=== PATIENT | male | born 1965 | race Caucasian/White ===

== ENCOUNTER 2016-08-10 16:37 | Emergency (ER) | payer OTHER ==
[~2016-08-10] VITALS: Ht 175.3 cm; Wt 91.0 kg
[~2016-08-10 16:37] MED LIST: ASPI-535 PO; ATOR40TA68 PO; CLOP75TA27 PO; GEMF600T60 PO; LANT3I SC; OMEP20CA16 PO
[2016-08-10 16:49] VITALS: Ht 175.3 cm; Wt 91.0 kg
[2016-08-10] MEDS ORDERED: SOD CHLORIDE 0.9% 1,000 ML IV STA (17:06)
[2016-08-10 17:25] LABS: ADD SCAN DIFF NO
[2016-08-10 17:28] LABS: BASOPHILS % 0.3 % (0.0-2.0); EOSINOPHILS # 0.1 10^3/ul (0.0-0.5); EOSINOPHILS % 0.8 % (0.0-7.0); HEMATOCRIT 44.4 % (42.0-52.0); HEMOGLOBIN 15.4 g/dl (14.0-18.0); LYMPHOCYTES # 3.3 10^3/ul (0.8-2.9); LYMPHOCYTES % 28.1 % (15.0-51.0); MEAN CORPUSCULAR HEMOGLOBIN 30.8 pg (29.0-33.0); MEAN CORPUSCULAR HGB CONC 34.7 g/dl (32.0-37.0); MEAN CORPUSCULAR VOLUME 88.8 fl (82.0-101.0); MEAN PLATELET VOLUME 9.3 fl (7.4-10.4); MONOCYTE # 0.7 10^3/ul (0.3-0.9); NEUTROPHIL # 7.6 10^3/ul (1.6-7.5); NEUTROPHILS % 64.5 % (39.0-77.0); PLATELET COUNT 344 10^3/UL (140-415); RED CELL DISTRIBUTION WIDTH 11.8 % (11.5-14.5); WHITE BLOOD COUNT 11.8 10^3/ul (4.8-10.8)
[2016-08-10] MEDS ORDERED: EVOL140S SQ (17:44)
[2016-08-10] MEDS ORDERED: METF1000 PO (17:45)
[2016-08-10] MEDS ORDERED: INSU100I12 SQ (17:45)
[2016-08-10 17:46] LABS: CHLORIDE 101 mmol/L (97-110); POTASSIUM 4.3 mmol/L (3.5-5.1); SODIUM 139 mmol/L (135-144)
[2016-08-10] MEDS ORDERED: LISI2.5T59 PO (17:46)
[2016-08-10] MEDS ORDERED: OMEP20CA16 PO (17:46)
[2016-08-10] MEDS ORDERED: RANI150T5 PO (17:47)
[2016-08-10] MEDS ORDERED: MELO-110 PO (17:47)
[2016-08-10 17:48] LABS: INR 0.91; PROTIME 12.2 Sec (12.2-14.2)
[2016-08-10] MEDS ORDERED: GABA300C16 PO (17:48)
[2016-08-10 17:49] LABS: ANION GAP 18 (8-16); CARBON DIOXIDE 24 mmol/L (21-31); CREATININE 0.77 mg/dl (0.61-1.24); PARTIAL THROMBOPLASTIN TIME 27.2 Sec (25.0-35.0)
[2016-08-10 17:49] LABS: ADD UMIC NO; URINE BILIRUBIN (Dip) NEGATIVE (NEGATIVE); URINE BLOOD (Dip) NEGATIVE (NEGATIVE); URINE COLOR LT. YELLOW (YELLOW); URINE GLUCOSE (Dip) NEGATIVE (NEGATIVE); URINE KETONES (Dip) NEGATIVE (NEGATIVE); URINE LEUKOCYTE ESTERASE (Dip) NEGATIVE (NEGATIVE); URINE NITRITE (Dip) NEGATIVE (NEGATIVE); URINE TOTAL PROTEIN (Dip) NEGATIVE (NEGATIVE); URINE UROBILINOGEN (Dip) 0.2 E.U./dL (0.1-1.0)
[2016-08-10] MEDS ORDERED: ICOS1CAP PO (17:49)
[2016-08-10] MEDS ORDERED: EZET10TA3 PO (17:49)
[2016-08-10 17:50] LABS: BLOOD UREA NITROGEN 13 mg/dl (7-20); CALCIUM 9.5 mg/dl (8.4-10.2); GLUCOSE 107 mg/dl (70-220)
[2016-08-10] MEDS ORDERED: DULA1.5P SQ (17:52)
--- NOTE | 2016-08-10 17:57 | RADRPT ---
PROCEDURE: Chest x-ray CLINICAL INDICATION: Chest pain TECHNIQUE: Chest single view COMPARISON: 02/04/2014 FINDINGS: The heart is normal in size. The pulmonary vessels are normal in caliber. The lungs are clear. Th e costophrenic angles are sharp. The visualized bony thorax is unremarkable. IMPRESSION: No acute cardiopulmonary disease. RPTAT: HH .Juan Pedraza MD, Date Time Electronically viewed and signed by .Juan Pedraza MD, MD on 08/10/2016 17:56 .W/
--- NOTE | 2016-08-10 18:09 | RADRPT ---
PROCEDURE: CT Brain without contrast. CLINICAL INDICATION: Trauma. Pain. . TECHNIQUE: Serial axial computed tomographic images of the brain was performed on a CT scanner fro m the skull base through the vertex without contrast. Exam CTDlvol = 45 mGy and DLP = 720 mGy-cm. One of the following 3 dose reduction techniques were used: Automated exposure control; adjustment of the mA and/or kV according to patient size; or use of iterative reconstruction technique. COMPARISON: 06/19/2012. FINDINGS: There is no fracture. There is mild generalized central and peripheral volume loss. There is no midl ine shift. There are no focal parenchymal abnormalities. There is no acute stroke. No acute intra cranial hemorrhage or abnormal extra-axial fluid collection. Visualized paranasal sinuses are maria elena r. IMPRESSION: 1. No acute post-traumatic abnormality. RPTAT: HMVK .Bill Crabtree MD, Date Time Electronically viewed and signed by .Bill Crabtree MD, on 08/10/2016 18:09 .K/
[2016-08-10 18:10] LABS: TROPONIN-I < 0.012 ng/ml (0.00-0.12)
--- NOTE | 2016-08-10 18:14 | RADRPT ---
PROCEDURE: CT cervical spine without contrast CLINICAL INDICATION: Trauma. Pain. TECHNIQUE: CT scan of the cervical spine was performed on a multidetector scanner. No IV contrast was administered. Coronal and sagittal reformatted images were obtained from the axial source imag es. Images were reviewed on a high-resolution PACS workstation. Exam CTDlvol = 22 mGy and DLP = 416 mGy-cm. One of the following 3 dose reduction techniques were used: Automated exposure control; adjustment of the mA and/or kV according to patient size; or use of iterative reconstruction techniq ue. COMPARISON: None available FINDINGS: There is no fracture. Alignment is maintained. There is no spondylolisthesis. There is maintenanc e of height of the vertebral bodies. Mild multilevel degenerative changes are present, greatest at C3-4 through C5-6. Bone mineralization is within normal limits. Prevertebral soft tissues are unr emarkable. IMPRESSION: 1. No acute post traumatic abnormality. 2. Mild degenerative changes greatest between C3-4 and C5-6. RPTAT: MVK .Bill Crabtree MD, MD Date Time Electronically viewed and signed by .Bill Crabtree MD, MD on 08/10/2016 18:14 .K/
--- NOTE | 2016-08-10 18:57 | ERA ---
ER Documentation Chief Complaint Date/Time DATE: 08/10/16 TIME: 18:52 Chief Complaint fell on head with ko 1 hour ago; nausea HPI This is a 51-year-old male who presents to the emergency room after a syncopal episode. According to the patient and the patient's family who are giving the history this patient was standing up and suddenly lost consciousness. He was unconscious for approximately 30 seconds, and did fall on his head. The patient states that he does have a slight headache, is complaining of mild nausea and pain to the right hand. The patient states that he sometimes faints when his blood pressure is too low. He denies any active chest pain or palpitations at this time. According to the patient's previous medical records this patient does have heart disease and has suffered from a previous myocardial infarction in 2009 ROS All systems reviewed and are negative except as per history of present illness. Medications Home Meds Reported Medications Dulaglutide (Trulicity) 1.5 Mg/0.5 Ml Pen.injctr, 1.5 MG SQ Q Sunday08/10/16 Ezetimibe* (Zetia*) 10 Mg Tablet, 10 MG PO DAILY, TAB 08/10/16 Icosapent Ethyl (VASCEPA) 1 Gm Capsule, 2 GM PO BID, CAP 08/10/16 Gabapentin* (Gabapentin*) 300 Mg Capsule, 300 MG PO DAILY, #30 CAP 08/10/16 Ranitidine Hcl* (Ranitidine Hcl*) 150 Mg Tablet, 150 MG PO HS, #30 TAB 08/10/16 Meloxicam* (Mobic*) 15 Mg Tablet, 15 MG PO DAILY, #30 TAB 08/10/16 Lisinopril* (Lisinopril*) 2.5 Mg Tablet, 2.5 MG PO DAILY Y for PRN, #30 TAB 08/10/16 Omeprazole* (Omeprazole*) 20 Mg Capsule.dr, 20 MG PO DAILY, #30 CAP 08/10/16 Metformin Hcl* (Metformin Hcl*) 1,000 Mg Tablet, 1000 MG PO WITH BREAKFAST DINNE , #60 TAB 08/10/16 Insulin Lispro (Humalog Kwikpen U-100) 100 Unit/1 Ml Insuln.pen, 3 UNIT SQ WITH MEALS 08/10/16 Evolocumab (Repatha Syringe) 140 Mg/1 Ml Syringe, 140 MG SQ [id number] 08/10/16 Insulin Glargine* (Lantus*) 100 Unit/Ml Soln, 45 UNIT SC QAM, EA 02/04/14 Aspirin Ec (Aspir 81) 81 Mg Tablet.dr, 81 MG PO DAILY, TAB 02/04/14 Discontinued Reported Medications Gemfibrozil* (Gemfibrozil*) 600 Mg Tablet, 600 MG PO DAILY, TAB 02/04/14 Atorvastatin* (Atorvastatin*) 40 Mg Tablet, 40 MG PO HS, TAB 02/04/14 Omeprazole* (Omeprazole*) 20 Mg Capsule.dr, 20 MG PO DAILY, CAP 02/04/14 Clopidogrel Bisulfate (Clopidogrel) 75 Mg Tablet, 75 MG PO DAILY, TAB 02/04/14 Allergies Allergies: Coded Allergies: No Known Allergies (Verified Allergy, Mild, 08/10/16) PMhx/Soc History of Surgery: Yes (R Shoulder, Cardiac Cath) Anesthesia Reaction: No Hx Neurological Disorder: No Hx Respiratory Disorders: No Hx Cardiac Disorders: Yes (CT with Stent Placement) Hx Psychiatric Problems: No Hx Miscellaneous Medical Probl: Yes (DM II) Hx Alcohol Use: Yes (Social) Hx Substance Use: No Hx Tobacco Use: Yes (2 Packs a Day) Smoking Status: Current every day smoker Physical Exam Vitals Vital Signs Date Time Temp Pulse Resp B/P Pulse Ox O2 Delivery O2 Flow Rate FiO2 08/10/16 17:26 93 17 142/94 96 Room Air 08/10/16 16:49 99.3 99 18 145/89 98 Physical Exam INITIAL VITAL SIGNS: Reviewed by me GENERAL: The patient is well developed and appropriate for usual state of health in no apparent distress HEENT: Pupils equal, round, and reactive to light. EOMI. There is no scleral icterus. NECK: C-spine is soft and supple, there is no meningismus. There is no cervical lymphadenopathy. LUNGS: Clear to auscultation bilaterally. There are no rales, wheezes or rhonchi. HEART: Regular rate and rhythm, no murmurs, clicks, rubs or gallops. ABDOMEN: Soft, non-tender, non-distended. There are bowel sounds in all four quadrants. No rebound or guarding. EXTREMITIES: Superficial abrasion or lacerations to the second and third digits on the right hand, there is no peripheral cyanosis or edema. No focal swelling or erythema. NEUROLOGICAL: The patient moves all four extremities with 5/5 strength. Cranial nerves II - XII are intact. Normal gait. Alert and oriented SKIN: There is no apparent rash or petechiae. HEME/LYMPHATIC: There is no evidence of excessive bruising or lymphedema. PSYCHIATRIC: The patient does not appear anxious or depressed. Result Diagram: 08/10/16 1709 08/10/16 1709 Results 24 hrs Laboratory Tests Test 08/10/16 17:02 08/10/16 17:09 08/10/16 17:35 Bedside Glucose 109mg/dL White Blood Count 11.810^3/ul Red Blood Count 5.0010^6/ul Hemoglobin 15.4g/dl Hematocrit 44.4% Mean Corpuscular Volume 88.8fl Mean Corpuscular Hemoglobin 30.8pg Mean Corpuscular Hemoglobin Concent 34.7g/dl Red Cell Distribution Width 11.8% Platelet Count 30177^3/UL Mean Platelet Volume 9.3fl Neutrophils % 64.5% Lymphocytes % 28.1% Monocytes % 6.0% Eosinophils % 0.8% Basophils % 0.3% Nucleated Red Blood Cells % 0.0/100WBC Neutrophils # 7.610^3/ul Lymphocytes # 3.310^3/ul Monocytes # 0.710^3/ul Eosinophils # 0.110^3/ul Basophils # 0.010^3/ul Nucleated Red Blood Cells # 0.010^3/ul Prothrombin Time 12.2Sec Prothrombin Time Ratio 1.0 INR International Normalized Ratio 0.91 Activated Partial Thromboplast Time 27.2Sec Sodium Level 139mmol/L Potassium Level 4.3mmol/L Chloride Level 101mmol/L Carbon Dioxide Level 24mmol/L Anion Gap 18 Blood Urea Nitrogen 13mg/dl Creatinine 0.77mg/dl Glucose Level 107mg/dl Calcium Level 9.5mg/dl Troponin I < 0.012ng/ml Urine Color LT. YELLOW Urine Clarity CLEAR Urine pH 7.0 Urine Specific [place] 1.010 Urine Ketones NEGATIVE Urine Nitrite NEGATIVE Urine Bilirubin NEGATIVE Urine Urobilinogen 0.2 E.U./dL Urine Leukocyte Esterase NEGATIVE Urine Hemoglobin NEGATIVE Urine Glucose NEGATIVE% Urine Total Protein NEGATIVE Current Medications Medications (Trade) Dose Ordered Sig/Stephan Route PRN Reason Start Time Stop Time Status Last Admin Dose Admin Sodium Chloride (NS) 1,000 ml @ 1,000 mls/hr Q1H STAT IV 08/10/16 17:06 08/10/16 18:05 DC 08/10/16 17:18 Procedures/MDM EKG: #1 Rate/Rhythm: [Normal Sinus Rhythm] QRS, ST, T-waves: [No changes consistent w/ acute ischemia] Impression: [No evidence of ischemia or arrhythmia] EKG: #2 Rate/Rhythm: [Normal Sinus Rhythm] QRS, ST, T-waves: [No changes consistent w/ acute ischemia] Impression: [No evidence of ischemia or arrhythmia] CT brain/CT cervical spine without contrast: No acute abnormality X-ray Hand 3V interpreted by me: Scaphoid: [Normal] Bones: [No fracture] Joints: [No dislocation] Foreign body: [None] This 51-year-old male presents to the emergency room for evaluation of syncopal episode. When I evaluated the patient he was alert and oriented to person place and time, no lacerations were noted on his head. Did note some bruising and superficial laceration and abrasion on his right hand to the second and third digits. X-rays were obtained of the hand which did not show any acute fractures. CT of the head and cervical spine did not show any fractures or bleeds. Chest x-ray is also clear. This patient does have a cardiac history with previous ST elevation CT approximately 7 years ago. Given his cardiac history and syncopal episode I did recommend this patient be placed in for admission. The patient is adamantly refusing and states that he can see his primary care physician next week. I advised him that I am unable to rule out any cardiac etiology as a cause of his syncope and he will need to be admitted for cardiology evaluation and possible echocardiogram. The patient again is adamantly refusing. The patient has capacity to make medical decisions at this time and advised him he will need to leave AGAINST MEDICAL ADVICE. I did advise patient that he can return at anytime if he were to change his mind or if he would have any chest pain or syncope and he verbalized understanding. Against Medical Advice Note The patient verbalized understanding of risks of signing out against medical advice including and disability. The patient explained to me the reason for wanting to sign out against medical advice, he does not like hospitals and wants to follow with his primary care. The patient is alert and oriented x 3 with decisional capacity and competence to sign out. They were welcomed to come back to ER and will be going home with discharge paperwork. Departure Diagnosis: Primary Impression: Syncope Additional Impression: Abrasion of right hand Condition: CAL Gerardo DO August 10, 2016 18:57
[2016-08-10 19:33] VITALS: BP 138/89; PULSE 74; RESP 17; TEMP 98.7
--- NOTE | 2016-08-10 20:12 | RADRPT ---
PROCEDURE: XR Hand. CLINICAL INDICATION: Pain TECHNIQUE: AP, oblique and lateral views of the right hand were obtained. COMPARISON: No prior studies are available for comparison. FINDINGS: Three views of the right hand demonstrate no displaced fracture. No gross malalignment is seen. The re is minimal degenerative 58 feet PIP joints. No bony erosions are seen.. Bones are normally mine ralized. The soft tissues are unremarkable. IMPRESSION: No acute fracture dislocation. RPTAT: HH .Juan Pedraza MD, Date Time Electronically viewed and signed by .Juan Pedraza MD, on 08/10/2016 20:12 .W/
== END 2016-08-10 19:34 | disposition left against medical advice (07) ==
LOC: E/R 16:37
DX: R55 Syncope and collapse (principal); S60.511A Abrasion of right hand, initial encounter; E11.9 Type 2 diabetes mellitus without complications; F17.210 Nicotine dependence, cigarettes, uncomplicated; W18.39XA Other fall on same level, initial encounter; Y92.9 Unspecified place or not applicable; Z79.4 Long term (current) use of insulin; Z98.61 Coronary angioplasty status; Z79.84 Long term (current) use of oral hypoglycemic drugs; Z79.82 Long term (current) use of aspirin
CPT/HCPCS: 36415; 70450; 71010; 72125; 73130; 80048; 81003; 82962; 84484; 85025; 85610; 85730; 93005; J7030; Z7502

== ENCOUNTER 2017-09-14 14:02 | Emergency (ER) | END 2017-09-14 16:39 | disposition home or self-care (01) ==

== ENCOUNTER 2017-10-09 10:23 | Day surgery (SDC) | END 2017-10-09 16:46 | disposition home or self-care (01) ==

== ENCOUNTER 2018-01-14 08:43 | Inpatient (IN) | END 2018-01-17 18:55 | disposition home or self-care (01) | DRG 392 ==

== ENCOUNTER 2018-07-10 06:24 | Inpatient (IN) | payer OTHER ==
[2018-07-10] VITALS (32 sets, daily range): BP systolic 102–149; BP diastolic 62–85; PULSE 64–83; RESP 13–24; Ht 172.7 cm; Wt 98.2 kg
[~2018-07-10] VITALS: Ht 172.7 cm; Wt 98.2 kg
[~2018-07-10 06:24] MED LIST changes: -ASPI-535 PO; +ASPI81TA50 PO; -ATOR40TA68 PO; -CLOP75TA27 PO; +ERGO500013 PO; +GABA300C16 PO; -GEMF600T60 PO; +GEMF600T8 PO; +ICOS1CAP PO; +INSU100I12 SQ; +LISI2.5T59 PO; +METF100010 PO; +TAMS0.4C2 PO
[2018-07-10] MEDS ORDERED: MIDAZOLAM 1 MG/ML 2 ML INJ ONE (07:14)
[2018-07-10] MEDS ORDERED: HEPARIN 1000 UNITS/ML 10 ML INJ ONE (07:14)
[2018-07-10] MEDS ORDERED: LIDOCAINE 1% (MDV) 20 ML INJ ONE (07:14)
[2018-07-10] MEDS ORDERED: IODIXANOL LOCM 100 ML BTL ONE (07:14)
[2018-07-10] MEDS ORDERED: NITROGLYCERIN (IC) 100 MCG/ML INJ ONE (07:16)
[2018-07-10] MEDS ORDERED: VERAPAMIL 5 MG INJ ONE (07:16)
[2018-07-10] MEDS ORDERED: FENTAnyl 50 MCG/ML VIAL ONE (07:16)
[2018-07-10] MEDS ORDERED: SOD CHLORIDE 0.9% 1,000 ML IV SCH (09:06)
--- NOTE | 2018-07-10 09:11 | OPR ---
Date/Time of Note Date/Time of Note DATE: 07/10/18 TIME: 09:07 Operative Report Procedure Date: Jul 10, 2018 Preoperative Diagnosis Unstable angina Abnormal stress test Postoperative Diagnosis Severe triple-vessel coronary artery disease Operation/Procedure Performed Left heart catheterization Right and left coronary angiogram Interpretation and supervision of right and left coronary angiogram LV pressure measurements Conscious sedation Left radial artery approach Surgeon see signature line Assembler Piano Watch Train Inspector staff Anesthesia Type: MAC Estimated Blood Loss: minimal Transfusion none Specimen None Grafts/Implants none Complications none Pt Condition Post Procedure: stable Procedure Description Findings Hemodynamics LV pressure 120/-6 with an EDP of 8 Aortic pressure 116/59 Coronary findings Left main is a large caliber vessel with ostial 50-60% stenosis and mid 40% stenosis. Circumflex is a medium caliber vessel with a mid 90% stenosis prior to a trifurcation of 3 obtuse marginals. The second obtuse marginal with an aneurysmal segment with a mid 80% stenosis LAD is a medium caliber vessel with a proximal 60% stenosis in the mid 70% stenosis. There is a medium caliber diagonal with an ostial 99% stenosis RCA is a large caliber vessel and dominant with a mid 99% stenosis, PLB with proximal 99% stenosis, PDA with a proximal 60% stenosis Description of procedure Patient brought to the Watch Train Inspector after informed consent. Patient prepped and draped as per protocol. Left radial artery access was obtained. A 5/6 [place] Helenian sheath was placed. A JL 3.55 [place] Helen[place] diagnostic catheter was used to engage the left main and Clemencia Steve was performed. We next used a 5 [place] Helen[place] JR4 catheter to engage the RCA and Clemencia Steve was performed. We next and to the left ventricle and pressure measurements were obtained as well as pullback. There was no immediate complications Recommendations Patient with severe triple-vessel coronary artery disease including left main disease, will need CABG Bill Wray DO Jul 10, 2018 09:11
[2018-07-10] MEDS: ASPIRIN 81 MG TAB PO SCH (09:34)
[2018-07-10] MEDS ORDERED: ACETAMINOPHEN 325 MG TAB PO PRN (13:00)
[2018-07-10] MEDS ORDERED: NACL 0.9% 3 ML SYG IV SCH (13:00)
[2018-07-10] MEDS ORDERED: ONDANSETRON 4 MG INJ IV PRN (13:00)
--- NOTE | 2018-07-10 13:04 | RADRPT ---
Echocardiogram Report Patient Name: RADHA IRVINGTPhimanshuent ID: [id number] : 1965 (53y 4m)Study Date: 07/10/2018 10:31:53 AM Gender: MAccession #: [id number] Tech: Jean Paul Zheng RDCS Location: PACU Ref.Physician: BILL WRAY Height(Cm): BSA: Weight(Kg): Quality: AdequateAccount #: Procedures: Echocardiographic Report: Transthoracic echocardiogram with complete 2D, M-Mode, and doppler examination. Indications: Coronary Artery Disease. Measurements: 2D/M Mode Doppler Measurement Value Normal Range Measurement Value Normal Range LVIDd 2D 4.6 [ 4.2 - 5.8 ] cm AV Peak Shar 1.5 [ 100.0 - 170.0 ] cm/sec LVIDs 2D 3.1 [ 2.5 - 4.0 ] cm AV Peak PG 9.0 [ 2.0 - 9.0 ] mmHg LVPWd 2D 1.1 [ 0.6 - 1.0 ] cm LVOT Peak Shar 0.8 [ 70.0 - 110.0 ] cm/sec IVSd 2D 1.3 [ 0.6 - 1.0 ] cm LVOT Peak PG 3.0 [ 2.0 - 6.0 ] mmHg IVS/LVPW 2D 1.1 ratio MV E Peak Shar 0.9 [ 60.0 - 130.0 ] cm/sec AoR Diam 2D 3.1 [ 2.6 - 3.4 ] cm MV A Peak Shar 0.7 [ 100.0 - 120.0 ] cm/sec LA/Ao 2D 1 ratio MV E/A 1.4 [ 0.8 - 1.5 ] ratio LA Dimen 2D 3.0 [ 3.0 - 4.0 ] cm MV Decel Time 197 [ 104 - 258 ] msec Lat E` Shar 0.1 [ 10.0 - 15.0 ] cm/sec MV E/A 1.4 [ 0.8 - 1.5 ] ratio TR Peak Shar 1.9 [ 100.0 - 280.0 ] cm/sec TR Peak PG 15.0 mmHg RVSP 18.0 [ 10.0 - 36.0 ] mmHg RA Pressure 3.0 mmHg Findings: Left Ventricle: Normal left ventricular systolic function. Normal left ventricular cavity size. Mild concentric left ventricular hypertrophy. Ejection fraction is visually estimated at 55 %. Right Ventricle: Normal right ventricular size. Normal right ventricular systolic function. Left Atrium: The left atrium is normal in size. Right Atrium: The right atrium is normal in size. Mitral Valve: Normal appearance and function of the mitral valve with trace physiologic regurgitation. Aortic Valve: Normal appearance of the aortic valve. No significant aortic stenosis or insufficiency. Tricuspid Valve: Normal appearance and function of the tricuspid valve with trace physiologic regurgitation. Pulmonic Valve: Normal pulmonic valve appearance. Pericardium: Normal pericardium with no significant pericardial effusion. Aorta: Normal aortic root. IVC: Normal size and normal respiratory collapse consistent with normal right atrial pressure. Conclusions: Normal left ventricular systolic function. Normal left ventricular cavity size. Mild concentric left ventricular hypertrophy. Ejection fraction is visually estimated at 55 %. Normal right ventricular size. Normal right ventricular systolic function. The left atrium is normal in size. The right atrium is normal in size. No significant valvular stenosis or regurgitation seen. Normal pericardium with no significant pericardial effusion. Electronically Signed By: Bill Wray 2018-07-10 13:04:03 PDT
--- NOTE | 2018-07-10 13:08 | CONS ---
Assessment/Plan Assessment/Plan Hospital Course (Demo Recall) Unstable angina Severe coronary artery disease Preserved ejection fraction Hypertension Dyslipidemia -Patient status post left heart catheterization today with evidence of severe coronary artery disease in multiple vessels including left main. Patient will need coronary artery bypass grafting. This was discussed with the patient and awaiting CT surgery evaluation -Echocardiogram with preserved ejection fraction, will check carotid Doppler -Continue aspirin therapy, statin therapy, beta-blockers heart rate and blood pressure permits Consultation Date/Type/Reason Admit Date/Time Jul 10, 2018 at 09:24 Type of Consult Cardiology Reason for Consultation Severe coronary artery disease Date/Time of Note DATE: 07/10/18 TIME: 13:05 Hx of Present Illness This is a 53-year-old male past medical history of CAD, hypertension who presents today for outpatient left heart catheterization. Patient does complain of symptoms of exertional chest pain or shortness of breath which has been worsening over the past few weeks. Denies symptoms at rest. Patient underwent left heart catheterization with severe coronary disease with recommendations for coronary artery bypass grafting. Denies any current shortness of breath, fevers or chills. 12 point review of systems was performed with all pertinent positives and negatives mentioned above and all else is negative Past Medical History Medical History: coronary artery disease, high cholesterol, hypertension Home Meds Reported Medications Tamsulosin Hcl* (Tamsulosin Hcl*) 0.4 Mg Cap.er.24h, 0.4 MG PO HS, CAP 10/09/17 Gemfibrozil* (Gemfibrozil*) 600 Mg Tablet, 600 MG PO BID, TAB 10/09/17 Aspirin (Aspir-Low) 81 Mg Tablet.dr, 81 MG PO DAILY 09/14/17 Icosapent Ethyl (VASCEPA) 1 Gm Capsule, 2 GM PO BID, CAP 09/14/17 Insulin Glargine* (Lantus*) 100 Unit/Ml Soln, 45 UNIT SC DAILY, #1 VIAL 09/14/17 Metformin Hcl* (Metformin Hcl*) 1,000 Mg Tablet, 1000 MG PO WITH BREAKFAST DINNE, #60 TAB 09/14/17 Omeprazole* (Omeprazole*) 20 Mg Capsule.dr, 20 MG PO DAILY, #30 CAP 09/14/17 Gabapentin* (Gabapentin*) 300 Mg Capsule, 300 MG PO DAILY, #60 CAP 09/14/17 Lisinopril* (Lisinopril*) 2.5 Mg Tablet, 2.5 MG PO DAILY, #30 TAB 09/14/17 Ergocalciferol (Vitamin D2) (VITAMIN D2) 50,000 Unit Capsule, 93774 UNIT PO Q7D, CAP 09/14/17 Insulin Lispro (Humalog Kwikpen U-100) 100 Unit/1 Ml Insuln.pen, 10 UNIT SQ BEFORE MEALS, EA 09/14/17 Medications Current Medications Sodium Chloride 1,000 ml @ 75 mls/hr [id number] IV Last administered on 07/10/18at 09:24; Admin Dose 75 MLS/HR; Start 07/10/18 at 09:06; Stop 07/10/18 at 14:05 Aspirin (Aspirin) 81 mg DAILY PO Last administered on 07/10/18at 09:34; Admin Dose 81 MG; Start 07/10/18 at 09:30 Metoprolol Tartrate (Lopressor) 25 mg BID PO ; Start 07/10/18 at 21:00 Atorvastatin Calcium (Lipitor) 40 mg HS PO ; Start 07/10/18 at 21:00 IV Flush (NS 3 ml) 3 ml PER PROTOCOL IV ; Start 07/10/18 at 13:00; Status UNV Ondansetron HCl (Zofran Inj) 4 mg Q6H PRN IV NAUSEA/VOMITING; Start 07/10/18 at 13:00; Status UNV Acetaminophen (Tylenol Tab) 650 mg Q6H PRN PO .PAIN 1-3 OR TEMP; Start 07/10/18 at 13:00; Status UNV Allergies: Coded Allergies: No Known Allergies (Verified Allergy, Mild, 10/09/17) Past Surgical History Past Surgical Hx: angioplasty Social History Smoking Status: Former smoker Exam/Review of Systems Vital Signs Vitals Vital Signs Date Temp Pulse Resp B/P (MAP) Pulse Ox O2 O2 Flow FiO2 Time Delivery Rate 07/10/18 72 19 123/81 97 Room Air 12:30 (95) 07/10/18 98.9 09:05 Exam Constitutional: alert, oriented (No apparent distress) Head: normocephalic Respiratory: clear to auscultation, normal air movement Cardiovascular: regular rate and rhythm (S1-S2 heard) Gastrointestinal: soft, non-tender, bowel sounds Extremities: other (No significant edema) Labs Result Diagram: 07/10/18 0652 07/10/1852 Results 24hrs Laboratory Tests Test 07/10/18 06:52 White Blood Count 11.1 H Red Blood Count 4.57 L Hemoglobin 13.7 L Hematocrit 39.7 L Mean Corpuscular Volume 86.9 Mean Corpuscular Hemoglobin 30.0 Mean Corpuscular Hemoglobin Concent 34.5 Red Cell Distribution Width 11.5 Platelet Count 320 Mean Platelet Volume 9.3 Immature Granulocytes % 0.300 Neutrophils % 46.4 Lymphocytes % 42.0 Monocytes % 9.0 Eosinophils % 1.9 Basophils % 0.4 Nucleated Red Blood Cells % 0.0 Immature Granulocytes # 0.030 Neutrophils # 5.2 Lymphocytes # 4.7 H Monocytes # 1.0 H Eosinophils # 0.2 Basophils # 0.1 Nucleated Red Blood Cells # 0.0 Prothrombin Time 11.8 L Prothrombin Time Ratio 0.9 INR International Normalized Ratio 0.86 Activated Partial Thromboplast Time 23.9 Sodium Level 139 Potassium Level 4.3 Chloride Level 102 Carbon Dioxide Level 25 Anion Gap 12 Blood Urea Nitrogen 15 Creatinine 0.68 Est Glomerular Filtrat Rate mL/min > 60 Glucose Level 156 Calcium Level 9.8 Total Bilirubin 0.3 Direct Bilirubin 0.00 Indirect Bilirubin 0.3 Aspartate Amino Transf (AST/SGOT) 18 Alanine Aminotransferase (ALT/SGPT) 15 Alkaline Phosphatase 86 Total Protein 7.7 Albumin 4.4 Globulin 3.30 H Albumin/Globulin Ratio 1.33 Medications Medications Current Medications Sodium Chloride 1,000 ml @ 75 mls/hr [id number] IV Last administered on 07/10/18at 09:24; Admin Dose 75 MLS/HR; Start 07/10/18 at 09:06; Stop 07/10/18 at 14:05 Aspirin (Aspirin) 81 mg DAILY PO Last administered on 07/10/18at 09:34; Admin Dose 81 MG; Start 07/10/18 at 09:30 Metoprolol Tartrate (Lopressor) 25 mg BID PO ; Start 07/10/18 at 21:00 Atorvastatin Calcium (Lipitor) 40 mg HS PO ; Start 07/10/18 at 21:00 IV Flush (NS 3 ml) 3 ml PER PROTOCOL IV ; Start 07/10/18 at 13:00; Status UNV Ondansetron HCl (Zofran Inj) 4 mg Q6H PRN IV NAUSEA/VOMITING; Start 07/10/18 at 13:00; Status UNV Acetaminophen (Tylenol Tab) 650 mg Q6H PRN PO .PAIN 1-3 OR TEMP; Start 07/10/18 at 13:00; Status CONNORV Bill Wray DO Jul 10, 2018 13:08
--- NOTE | 2018-07-10 13:25 | HP ---
Date/Time of Note Date/Time of Note DATE: 07/10/18 TIME: 13:08 Assessment/Plan VTE Prophylaxis Risk score (from Ns)>0 risk: 3 SCD applied (from Ns): Yes Pharmacological prophylaxis: NA/contraindicated Pharm contraindication: low risk/ambulating Lines/Catheters IV C[facility]from [facility] Peripheral IV Assessment/Plan Assessment/Plan 53 yo obese man with HTN, IDDM, severe CAD who presents with 3-vessel CAD #CAD - Cardiac cath 07/10 shows severe stenosis of the L main, circumflex, LAD, and RCA. - Dr. Patterson consulted for CABG - Cardiology/CT surgery to manage antiplatelet and anticoagulation iliana- operatively. - According to patient he held his xarelto and plavix 4 days ago and has been off aspirin for 3 months. #IDDM - Continue home lantus and lispro #HTN - Continue home lisinopril - Requested to bring home medications. #GERD - Continue PPI #BPH - Cont tamsulosin DVT: SCDs GI: PPI Result Diagram: 07/10/18 0652 07/10/1852 HPI/ROS Admit Date/Time Admit Date/Time Jul 10, 2018 at 09:24 Hx of Present Illness Mr. Lombardi is an obese [place] man admitted after scheduled cardiac catheterization showed severe three-vessel disease. He has a long cardiac history including a heart attack 10 years ago for which he got PCI with stent placement; and another heart attack 6 months ago at [place]. The patient believes that he got the balloon angioplasty but no stent placed at this time. He follows Dr. Haas outpatient. He has had aching chest pain with exertion for several months. There was suspicion this was statin myopathy and his statin was held several months ago without relief. He was restarted on atorvastatin 2 months ago. He was then scheduled for an outpatient nuclear medicine stress test which was positive for ischemia. Apparently the patient stopped aspirin 3 months ago and most recently has been on clopidogrel and xarelto. These latter two were stopped 4 days prior to this admission in anticipation of the cardiac cath. Today, the patient was taken for cardiac catheterization by Dr. Wray which showed severe stenosis of the L main, circumflex, LAD, and RCA. Post-procedure the patient is awake and alert with no complaints, vitals and labs unremarkable. ROS He denies recent weight loss, fevers, chills, headache, vision changes, numbness or weakness, shortness of breath, cough, nausea, vomiting, abdominal pain, diarrhea, constipation, muscle aches. PMH/Family/Social Past Medical History insulin-dependent diabetes mellitus Hypertension Coronary artery disease GERD Medications Current Medications Sodium Chloride 1,000 ml @ 75 mls/hr [id number] IV Last administered on 07/10/18at 09:24; Admin Dose 75 MLS/HR; Start 07/10/18 at 09:06; Stop 07/10/18 at 14:05 Aspirin (Aspirin) 81 mg DAILY PO Last administered on 07/10/18at 09:34; Admin Dose 81 MG; Start 07/10/18 at 09:30 Metoprolol Tartrate (Lopressor) 25 mg BID PO ; Start 07/10/18 at 21:00 Atorvastatin Calcium (Lipitor) 40 mg HS PO ; Start 07/10/18 at 21:00 IV Flush (NS 3 ml) 3 ml PER PROTOCOL IV ; Start 07/10/18 at 13:00 Ondansetron HCl (Zofran Inj) 4 mg Q6H PRN IV NAUSEA/VOMITING; Start 07/10/18 at 13:00 Acetaminophen (Tylenol Tab) 650 mg Q6H PRN PO .PAIN 1-3 OR TEMP; Start 07/10/18 at 13:00 Coded Allergies: No Known Allergies (Verified Allergy, Mild, 10/09/17) Past Surgical History shoulder surgery Past Surgical Hx: angioplasty Social History Alcohol Use: occasionally Smoking Status: Former smoker (Quit cigarettes 7 months ago. Per previous note, he may be vaping. ) Drug Use: none Exam/Review of Systems Vital Signs Vitals Vital Signs Date Temp Pulse Resp B/P (MAP) Pulse Ox O2 O2 Flow FiO2 Time Delivery Rate 07/10/18 72 19 123/81 97 Room Air 12:30 (95) 07/10/18 98.9 09:05 Exam Exam Gen: Obese man lying in bed in no acute distress. Eyes: PERRL, no icterus HEENT: Moist mucous membranes, clear oropharynx Neck: Supple, no lymphadenopathy, no JVD Card: Regular rate and rhythm, no murmurs, no chest wall tenderness Pulm: Clear to auscultation bilaterally, breathing comfortably on room air Abd: Obese, soft, nontender Ext: L wrist angiogram site dressing clean/dry/intact. No peripheral edema. DP pulses 2+ Skin: warm, dry, well perfused. DRAKE LOUIS MD Jul 10, 2018 13:18
--- NOTE | 2018-07-10 13:52 | CONS ---
Assessment/Plan Assessment/Plan Assessment/Plan (Daily) 53 year old male with 3V CAD who will need urgent cabg. I explained the risks, benefits and alternatives of surgery. The risks are but not limited to bleeding, infection, stroke, KS, renal and respiratory failure and . He understands and consents. Consultation Date/Type/Reason Admit Date/Time Jul 10, 2018 at 09:24 Date of Consultation: Jul 10, [address] surgery Reason for Consultation eval for cabg Date/Time of Note DATE: 07/10/18 TIME: 13:46 Hx of Present Illness 53 year old male with HTN, DM. s/p KS 7 months ago with angioplasty at [facility], having ongoing chest pain. Cath today shows 3V CAD. He stopped his plavix 4 days ago. Constitutional: no complaints, improved ENT: no complaints Respiratory: shortness of breath Cardiovascular: chest pain Gastrointestinal: no complaints Musculoskeletal: no complaints Skin: no complaints Neurologic: no complaints Endocrine: no complaints Lymphatic: no complaints Psychological: no complaints, nl mood/affect Immunologic: no complaints Past Medical History Medical History: angina, coronary artery disease, hypertension Home Meds Reported Medications Tamsulosin Hcl* (Tamsulosin Hcl*) 0.4 Mg Cap.er.24h, 0.4 MG PO HS, CAP 10/09/17 Gemfibrozil* (Gemfibrozil*) 600 Mg Tablet, 600 MG PO BID, TAB 10/09/17 Aspirin (Aspir-Low) 81 Mg Tablet.dr, 81 MG PO DAILY 09/14/17 Icosapent Ethyl (VASCEPA) 1 Gm Capsule, 2 GM PO BID, CAP 09/14/17 Insulin Glargine* (Lantus*) 100 Unit/Ml Soln, 45 UNIT SC DAILY, #1 VIAL 09/14/17 Metformin Hcl* (Metformin Hcl*) 1,000 Mg Tablet, 1000 MG PO WITH BREAKFAST DINNE, #60 TAB 09/14/17 Omeprazole* (Omeprazole*) 20 Mg Capsule.dr, 20 MG PO DAILY, #30 CAP 09/14/17 Gabapentin* (Gabapentin*) 300 Mg Capsule, 300 MG PO DAILY, #60 CAP 09/14/17 Lisinopril* (Lisinopril*) 2.5 Mg Tablet, 2.5 MG PO DAILY, #30 TAB 6/22/18 Ergocalciferol (Vitamin D2) (VITAMIN D2) 50,000 Unit Capsule, 36843 UNIT PO Q7D, CAP 09/14/17 Insulin Lispro (Humalog Kwikpen U-100) 100 Unit/1 Ml Insuln.pen, 10 UNIT SQ BEFORE MEALS, EA 09/14/17 Medications Current Medications Sodium Chloride 1,000 ml @ 75 mls/hr [id number] IV Last administered on 07/10/18at 09:24; Admin Dose 75 MLS/HR; Start 07/10/18 at 09:06; Stop 07/10/18 at 14:05 Aspirin (Aspirin) 81 mg DAILY PO Last administered on 07/10/18at 09:34; Admin Dose 81 MG; Start 07/10/18 at 09:30 Metoprolol Tartrate (Lopressor) 25 mg BID PO ; Start 07/10/18 at 21:00 Atorvastatin Calcium (Lipitor) 40 mg HS PO ; Start 07/10/18 at 21:00 IV Flush (NS 3 ml) 3 ml PER PROTOCOL IV ; Start 07/10/18 at 13:00 Ondansetron HCl (Zofran Inj) 4 mg Q6H PRN IV NAUSEA/VOMITING; Start 07/10/18 at 13:00 Acetaminophen (Tylenol Tab) 650 mg Q6H PRN PO .PAIN 1-3 OR TEMP; Start 07/10/18 at 13:00 Diagnostic Test (Pha) (Accu-Chek) 1 ea 02 XX ; Start 07/11/18 at 02:00; Status UNV Insulin Glargine (Lantus) 45 units DAILY@2000 SC ; Start 07/10/18 at 20:00; Status UNV Insulin Aspart (Novolog Insulin Pen) 10 unit WITH MEALS SC ; Start 07/10/18 at 17:55; Status UNV Miscellaneous Information (* Miscellaneous Pharmacy Order) HYPOGLYCEMIA PROTOCOL w... ONCE ONCE XX ; Start 07/10/18 at 13:30; Stop 07/10/18 at 13:31; Status UNV Insulin Aspart (Novolog Insulin Pen) NOVOLOG *MODERATE* ALGORITHM WITH MEALS BEDTIME SC ; Start 07/10/18 at 17:55; Status UNV Pantoprazole (Protonix Tab) 40 mg DAILY@06 PO ; Start 07/11/18 at 06:00; Status UNV Tamsulosin HCl (Flomax) 0.4 mg HS PO ; Start 07/10/18 at 21:00; Status UNV Cefazolin Sodium/ Dextrose 50 ml @ 100 mls/hr PRE-OP ONCE IVPB ; Start 07/10/18 at 14:00; Stop 07/10/18 at 14:29; Status UNV Allergies: Coded Allergies: No Known Allergies (Verified Allergy, Mild, 10/09/17) Past Surgical History Past Surgical Hx: angioplasty, other (shoulder surgery) Family History Significant Family History: no pertinent family hx Social History Alcohol Use: occasionally Smoking Status: Former smoker (Quit cigarettes 7 months ago. Per previous note, he may be vaping. ) Drug Use: none Exam/Review of Systems Exam Vitals Vital Signs Date Temp Pulse Resp B/P (MAP) Pulse Ox O2 O2 Flow FiO2 Time Delivery Rate 07/10/18 72 13:29 07/10/18 123/81 97 Room Air 12:30 (95) 07/10/18 98.9 09:05 Constitutional: alert, oriented, well developed Psych: no complaints, nl mood/affect Head: normocephalic, atraumatic ENMT: nl external ears & nose, nl lips & teeth, nl nasal mucosa & septum Neck: supple, non-tender Respiratory: clear to auscultation, normal air movement Cardiovascular: regular rate and rhythm, nl pulses Gastrointestinal: soft, nl liver, spleen, non-tender Musculoskeletal: nl extremities to inspection, nl gait and stance Extremities: normal pulses Neurological: [employer]UM[employer]ING [employer] II-XII intact, nl mental status, nl speech, nl strength Skin: nl turgor; No rash or lesions Lymph: nl lymph nodes Results Result Diagram: 07/10/18 0652 07/10/18 0652 Results 24hrs Laboratory Tests Test 07/10/18 06:52 White Blood Count 11.1 H Red Blood Count 4.57 L Hemoglobin 13.7 L Hematocrit 39.7 L Mean Corpuscular Volume 86.9 Mean Corpuscular Hemoglobin 30.0 Mean Corpuscular Hemoglobin Concent 34.5 Red Cell Distribution Width 11.5 Platelet Count 320 Mean Platelet Volume 9.3 Immature Granulocytes % 0.300 Neutrophils % 46.4 Lymphocytes % 42.0 Monocytes % 9.0 Eosinophils % 1.9 Basophils % 0.4 Nucleated Red Blood Cells % 0.0 Immature Granulocytes # 0.030 Neutrophils # 5.2 Lymphocytes # 4.7 H Monocytes # 1.0 H Eosinophils # 0.2 Basophils # 0.1 Nucleated Red Blood Cells # 0.0 Prothrombin Time 11.8 L Prothrombin Time Ratio 0.9 INR International Normalized Ratio 0.86 Activated Partial Thromboplast Time 23.9 Sodium Level 139 Potassium Level 4.3 Chloride Level 102 Carbon Dioxide Level 25 Anion Gap 12 Blood Urea Nitrogen 15 Creatinine 0.68 Est Glomerular Filtrat Rate mL/min > 60 Glucose Level 156 Calcium Level 9.8 Total Bilirubin 0.3 Direct Bilirubin 0.00 Indirect Bilirubin 0.3 Aspartate Amino Transf (AST/SGOT) 18 Alanine Aminotransferase (ALT/SGPT) 15 Alkaline Phosphatase 86 Total Protein 7.7 Albumin 4.4 Globulin 3.30 H Albumin/Globulin Ratio 1.33 Medications Medication Current Medications Sodium Chloride 1,000 ml @ 75 mls/hr [id number] IV Last administered on 07/10/18at 09:24; Admin Dose 75 MLS/HR; Start 07/10/18 at 09:06; Stop 07/10/18 at 14:05 Aspirin (Aspirin) 81 mg DAILY PO Last administered on 07/10/18at 09:34; Admin Dose 81 MG; Start 07/10/18 at 09:30 Metoprolol Tartrate (Lopressor) 25 mg BID PO ; Start 07/10/18 at 21:00 Atorvastatin Calcium (Lipitor) 40 mg HS PO ; Start 07/10/18 at 21:00 IV Flush (NS 3 ml) 3 ml PER PROTOCOL IV ; Start 07/10/18 at 13:00 Ondansetron HCl (Zofran Inj) 4 mg Q6H PRN IV NAUSEA/VOMITING; Start 07/10/18 at 13:00 Acetaminophen (Tylenol Tab) 650 mg Q6H PRN PO .PAIN 1-3 OR TEMP; Start 07/10/18 at 13:00 Diagnostic Test (Pha) (Accu-Chek) 1 ea 02 XX ; Start 07/11/18 at 02:00; Status UNV Insulin Glargine (Lantus) 45 units DAILY@2000 SC ; Start 07/10/18 at 20:00; Status UNV Insulin Aspart (Novolog Insulin Pen) 10 unit WITH MEALS SC ; Start 07/10/18 at 17:55; Status UNV Miscellaneous Information (* Miscellaneous Pharmacy Order) HYPOGLYCEMIA PROTOCOL w... ONCE ONCE XX ; Start 07/10/18 at 13:30; Stop 07/10/18 at 13:31; Status UNV Insulin Aspart (Novolog Insulin Pen) NOVOLOG *MODERATE* ALGORITHM WITH MEALS BEDTIME SC ; Start 07/10/18 at 17:55; Status UNV Pantoprazole (Protonix Tab) 40 mg DAILY@06 PO ; Start 07/11/18 at 06:00; Status UNV Tamsulosin HCl (Flomax) 0.4 mg HS PO ; Start 07/10/18 at 21:00; Status UNV Cefazolin Sodium/ Dextrose 50 ml @ 100 mls/hr PRE-OP ONCE IVPB ; Start 07/10/18 at 14:00; Stop 07/10/18 at 14:29; Status UNV HUSSEIN BOUDREAUX MD Jul 10, 2018 13:52
[2018-07-10] MEDS ORDERED: DEXTROSE 50% 50 ML SYRINGE IV PRN ×2 (14:00)
[2018-07-10] MEDS ORDERED: GLUCAGON 1 MG INJ IM PRN (14:00)
[2018-07-10] MEDS ORDERED: GLUCOSE GEL 15 GRAM TUBE BUCCAL PRN (14:00)
[2018-07-10] MEDS ORDERED: GLUCOSE GEL 15 GRAM TUBE PO PRN ×2 (14:00)
[2018-07-10] MEDS ORDERED: CEFAZOLIN 2 GM/50 ML (PMX) 50 ML IVPB ONE (14:00)
--- NOTE | 2018-07-10 17:20 | RADRPT ---
Vent Rate: 71 bpm RR Interval: 840 msec ND Interval: 165 msec QRS Duration: 79 msec QT Interval: 376 msec QTC Interval: 410 msec P-R-T [place]: 42 - 40 - 42 degrees Sinus rhythm...normal P axis, V-rate 50- 99 Abnormal R-wave progression, early transition...QRS area>0 in V2 Electronically Signed By: Ricardo Steve
[2018-07-10] MEDS: INSULIN ASPART [NOVOLOG] 3 ML PEN SC SCH ×3 (17:45→20:56)
[2018-07-10] MEDS ORDERED: INSULIN GLARGINE [LANTus] (100 UNITS/ML) SYG SC SCH (20:00)
[2018-07-10] MEDS: METOPROLOL 25 MG TAB PO SCH (20:47)
[2018-07-10] MEDS ORDERED: ATORVASTATIN 40 MG TAB PO SCH (21:00)
[2018-07-10] MEDS ORDERED: TAMSULOSIN (SR) 0.4 MG CAP PO SCH (21:00)
[2018-07-11] VITALS (28 sets, daily range): BP systolic 76–136; BP diastolic 54–81; PULSE 64–141; RESP 14–22; TEMP 99.2–101.1
[2018-07-11] MEDS ORDERED: ACCU-CHEK XX SCH (02:00)
[2018-07-11] MEDS ORDERED: PANTOPRAZOLE (EC) 40 MG TAB PO SCH (06:00)
[2018-07-11] MEDS ORDERED: ISOFLURANE 15 MIN ONE (07:00)
[2018-07-11] MEDS: INSULIN ASPART [NOVOLOG] 3 ML PEN SC SCH ×4 (07:55→11:50)
[2018-07-11] MEDS: METOPROLOL 25 MG TAB PO SCH (08:47)
[2018-07-11] MEDS: ASPIRIN 81 MG TAB PO SCH (08:47)
[2018-07-11] MEDS ORDERED: CEFAZOLIN 2 GM/50 ML (PMX) 50 ML IVPB ONE (14:00)
[2018-07-11] MEDS ORDERED: MIDAZOLAM 5 ML ONE ×3 (14:23→16:45)
[2018-07-11] MEDS ORDERED: PAPAVERINE 60 MG INJ ONE (14:25)
[2018-07-11] MEDS ORDERED: VANCOMYCIN 1 GM INJ ONE ×3 (14:25→16:58)
[2018-07-11] MEDS ORDERED: HEPARIN 1000 UNITS/ML 10 ML INJ ONE ×3 (14:25→16:21)
[2018-07-11] MEDS ORDERED: LIDOCAINE 100 MG SYRINGE ONE (14:34)
[2018-07-11] MEDS ORDERED: NA BICARBONATE 8.4% 50 ML SYG ONE (14:34)
[2018-07-11] MEDS ORDERED: MAGNESIUM SULFATE (MG) 50% 10 ML INJ ONE (14:34)
[2018-07-11] MEDS ORDERED: MANNITOL 20% 500 ML ONE (14:34)
[2018-07-11] MEDS ORDERED: POTASSIUM CHLORIDE 40 MEQ INJ ONE (14:34)
[2018-07-11] MEDS ORDERED: CA CHLORIDE 10% 10 ML SYRINGE ONE (14:35)
[2018-07-11] MEDS ORDERED: AMINOCAPROIC ACID 5 GM INJ ONE (14:35)
[2018-07-11] MEDS ORDERED: ALBUMIN HUMAN 25% 100 ML ONE (14:35)
[2018-07-11] MEDS ORDERED: PHENYLephrine 10 MG INJ ONE (14:36)
--- NOTE | 2018-07-11 14:38 | PREAC ---
Date/Time of Note Date/Time of Note DATE: 07/11/18 TIME: 14:36 Anesthesia Eval and Record Evaluation Time Pre-Procedure Interview DATE: 07/11/18 TIME: 14:36 Age 53 Sex male NPO: 8 hrs Preoperative diagnosis CAD Planned procedure CABG Past Medical History Past Medical History: Includes Cardio: HTN, Dyslipidemia, RI, CAD, PTCA/Stent Endo: Diabetes Pulm: Smoking Hx, COPD GI: GERD, Morbid obesity Surgery & Anesthesia Issues No known issue Meds Anticoagulation: Yes Beta Maryse within 24 hr: No Reason Beta Maryse not given: Pt. not on B-Maryse Reported Medications Tamsulosin Hcl* (Tamsulosin Hcl*) 0.4 Mg Cap.er.24h, 0.4 MG PO HS, CAP 10/09/17 Gemfibrozil* (Gemfibrozil*) 600 Mg Tablet, 600 MG PO BID, TAB 10/09/17 Aspirin (Aspir-Low) 81 Mg Tablet.dr, 81 MG PO DAILY 09/14/17 Icosapent Ethyl (VASCEPA) 1 Gm Capsule, 2 GM PO BID, CAP 09/14/17 Insulin Glargine* (Lantus*) 100 Unit/Ml Soln, 45 UNIT SC DAILY, #1 VIAL 09/14/17 Metformin Hcl* (Metformin Hcl*) 1,000 Mg Tablet, 1000 MG PO WITH BREAKFAST DINNE, #60 TAB 09/14/17 Omeprazole* (Omeprazole*) 20 Mg Capsule.dr, 20 MG PO DAILY, #30 CAP 09/14/17 Gabapentin* (Gabapentin*) 300 Mg Capsule, 300 MG PO DAILY, #60 CAP 09/14/17 Lisinopril* (Lisinopril*) 2.5 Mg Tablet, 2.5 MG PO DAILY, #30 TAB 09/14/17 Ergocalciferol (Vitamin D2) (VITAMIN D2) 50,000 Unit Capsule, 87001 UNIT PO Q7D, CAP 09/14/17 Insulin Lispro (Humalog Kwikpen U-100) 100 Unit/1 Ml Insuln.pen, 10 UNIT SQ BEFORE MEALS, EA 09/14/17 Current Medications Aspirin (Aspirin) 81 mg DAILY PO Last administered on 07/10/18at 09:34; Admin Dose 81 MG; Start 07/10/18 at 09:30 Metoprolol Tartrate (Lopressor) 25 mg BID PO Last administered on 07/10/18at 20:47; Admin Dose 25 MG; Start 07/10/18 at 21:00 Atorvastatin Calcium (Lipitor) 40 mg HS PO Last administered on 07/10/18at 20:47; Admin Dose 40 MG; Start 07/10/18 at 21:00 IV Flush (NS 3 ml) 3 ml PER PROTOCOL IV ; Start 07/10/18 at 13:00 Ondansetron HCl (Zofran Inj) 4 mg Q6H PRN IV NAUSEA/VOMITING; Start 07/10/18 at 13:00 Acetaminophen (Tylenol Tab) 650 mg Q6H PRN PO .PAIN 1-3 OR TEMP; Start 07/10/18 at 13:00 Diagnostic Test (Pha) (Accu-Chek) 1 ea 02 XX ; Start 07/11/18 at 02:00 Insulin Glargine (Lantus) 45 units DAILY@2000 SC Last administered on 07/10/18at 20:53; Admin Dose 45 UNITS; Start 07/10/18 at 20:00 Insulin Aspart (Novolog Insulin Pen) 10 unit WITH MEALS SC Last administered on 07/10/18at 17:45; Admin Dose 10 UNIT; Start 07/10/18 at 17:55 Insulin Aspart (Novolog Insulin Pen) NOVOLOG *MODERATE* ALGORITHM WITH MEALS BEDTIME SC Last administered on 07/10/18at 17:45; Admin Dose 8 UNIT; Start 07/10/18 at 17:55 Pantoprazole (Protonix Tab) 40 mg DAILY@06 PO ; Start 07/11/18 at 06:00 Tamsulosin HCl (Flomax) 0.4 mg HS PO Last administered on 07/10/18at 20:47; Admin Dose 0.4 MG; Start 07/10/18 at 21:00 Miscellaneous Information 1 ea NOTE XX ; Start 07/10/18 at 14:00 Glucose (Glutose) 15 gm Q15M PRN PO DECREASED GLUCOSE; Start 07/10/18 at 14:00 Glucose (Glutose) 22.5 gm Q15M PRN PO DECREASED GLUCOSE; Start 07/10/18 at 14:00 Dextrose (D50w Syringe) 25 ml Q15M PRN IV DECREASED GLUCOSE; Start 07/10/18 at 14:00 Dextrose (D50w Syringe) 50 ml Q15M PRN IV DECREASED GLUCOSE; Start 07/10/18 at 14:00 Glucagon (Glucagen) 1 mg Q15M PRN IM DECREASED GLUCOSE; Start 07/10/18 at 14:00 Glucose (Glutose) 15 gm Q15M PRN BUCCAL DECREASED GLUCOSE; Start 07/10/18 at 14:00 Insulin Human Regular 100 unit/ Sodium Chloride 100 ml @ 0 mls/hr Q0M ONCE IVPB ; Start 07/11/18 at 15:00; Stop 07/11/18 at 15:01 Norepinephrine 250 ml @ 0 mls/hr ONCE ONCE IV ; Start 07/11/18 at 15:00; Stop 07/11/18 at 15:01 Epinephrine 4 mg/ Dextrose 250 ml @ 0 mls/hr Q0M ONCE IV ; Start 07/11/18 at 15:00; Stop 07/11/18 at 15:01 Phenylephrine HCl 250 ml @ 0 mls/hr ONCE ONCE IV ; Start 07/11/18 at 15:00; Stop 07/11/18 at 15:01 Aspirin (Aspirin) 600 mg ONCE ONCE OR ; Start 07/11/18 at 15:00; Stop 07/11/18 at 15:01 Heparin Sodium (Porcine) 93193 unit/Milrinone Lactate 10 mg/ Sodium Chloride 1,011 ml @ 0 mls/hr ONCE ONCE SC ; Start 07/11/18 at 15:00; Stop 07/11/18 at 15:01 Milrinone Lactate 2 mg/Sodium Chloride 52 ml @ 0 mls/hr ONCE ONCE IV ; Start 07/11/18 at 15:00; Stop 07/11/18 at 15:01 Meds reviewed: Yes Allergies Coded Allergies: No Known Allergies (Verified Allergy, Mild, 10/09/17) Allergies Reviewed: Yes Labs/Studies Labs Reviewed: Reviewed by anesthesiologist Result Diagram: 07/11/18 0801 07/11/18 0801 Laboratory Tests 07/11/18 08:01 test: N/A Studies: ECG Pre-procedure Exam Last vitals Vital Signs Date Temp Pulse Resp B/P (MAP) Pulse Ox O2 O2 Flow FiO2 Time Delivery Rate 07/11/18 86 13:45 07/11/18 97.5 18 113/54 97 Room Air 11:55 (73) Airway: Adequate mouth opening, Adequate thyromental dist Mallampati: Mallampati III Teeth: Normal Lung: Normal Heart: Normal ASA Physical Status ASA physical status: 4 Emergency: None Planned Anesthetic General/MAC: ETT Planned Pain Management Parenteral pain med Pre-operative Attestations Prior to commencing anesthesia and surgery, the patient was re-evaluated, there was verification of: *The patient's identity *The results of appropriate recent lab work and preoperative vital signs *The above evaluation not changing prior to induction *Anesthetic plan, risk benefits, alternative and complications discussed with patient/family; questions answered; patient/family understands, accepts and wishes to proceed. JENN BERNABE MD Jul 11, 2018 14:38
--- NOTE | 2018-07-11 14:39 | PN ---
Date/Time of Note Date/Time of Note DATE: 07/11/18 TIME: 14:37 Assessment/Plan VTE Prophylaxis Risk score (from Ns)>0 risk: 3 SCD applied (from Ns): No SCD contraindicated: other (no) Pharmacological prophylaxis: heparin Lines/Catheters IV [facility]from [facility] Assessment/Plan Assessment/Plan 53 yo obese man with HTN, IDDM, severe CAD who presents with 3-vessel CAD #CAD - Cardiac cath 07/10 shows severe stenosis of the L main, circumflex, LAD, and RCA. - Dr. Patterson consulted for CABG - Cardiology/CT surgery to manage antiplatelet and anticoagulation iliana-opera tively. - According to patient he held his xarelto and plavix 4 days ago and has been off aspirin for 3 months. #IDDM - Continue home lantus and lispro #HTN - Continue home lisinopril - Requested to bring home medications. #GERD - Continue PPI #BPH - Cont tamsulosin DVT: SCDs GI: PPI Result Diagram: 07/11/18 0801 07/11/18 0801 Subjective 24 Hr Interval Summary Free Text/Dictation No acute overnight events. Patient taken for CABG today. Exam/Review of Systems Exam Vitals Vital Signs Date Temp Pulse Resp B/P (MAP) Pulse Ox O2 O2 Flow FiO2 Time Delivery Rate 07/11/18 86 13:45 07/11/18 97.5 18 113/54 97 Room Air 11:55 (73) Intake and Output 07/10/18 07/10/18 07/11/18 1515:00 23:00 07:00 IntakeIntake Total 1800 ml 1000 ml BalanceBalance 1800 ml 1000 ml Exam Gen: Obese man lying in bed in no acute distress. Eyes: PERRL, no icterus HEENT: Moist mucous membranes, clear oropharynx Neck: Supple, no lymphadenopathy, no JVD Card: Regular rate and rhythm, no murmurs, no chest wall tenderness Pulm: Clear to auscultation bilaterally, breathing comfortably on room air Abd: Obese, soft, nontender Ext: L wrist angiogram site dressing clean/dry/intact. No peripheral edema. DP pulses 2+ Skin: warm, dry, well perfused. Results Results 24hrs Laboratory Tests Test 07/10/18 17:39 07/10/18 20:49 07/10/18 21:00 07/11/18 01:55 Bedside Glucose 272 H 129 108 Urine Opiates Screen Negative Urine Barbiturates Negative Urine Amphetamines Negative Screen Urine Positive Benzodiazepines Screen Urine Cocaine Screen Negative Urine Cannabinoids Negative Test 07/11/18 08:01 07/11/18 08:22 07/11/18 12:03 White Blood Count 10.1 Red Blood Count 4.29 L Hemoglobin 12.9 L Hematocrit 37.2 L Mean Corpuscular 86.7 Volume Mean Corpuscular 30.1 Hemoglobin Mean Corpuscular 34.7 Hemoglobin Concent Red Cell 11.8 Distribution Width Platelet Count 287 Mean Platelet Volume 9.5 Immature 0.400 Granulocytes % Neutrophils % 50.1 Lymphocytes % 38.8 Monocytes % 8.3 Eosinophils % 1.7 Basophils % 0.7 Nucleated Red Blood 0.0 Cells % Immature 0.040 H Granulocytes # Neutrophils # 5.0 Lymphocytes # 3.9 H Monocytes # 0.8 Eosinophils # 0.2 Basophils # 0.1 Nucleated Red Blood 0.0 Cells # Prothrombin Time 12.3 Prothrombin Time 1.0 Ratio INR International 0.90 Normalized Ratio Activated 23.9 Partial Thromboplast Time Sodium Level 139 Potassium Level 4.0 Chloride Level 102 Carbon Dioxide Level 26 Anion Gap 11 Blood Urea Nitrogen 12 Creatinine 0.65 Est Glomerular > 60 Filtrat Rate mL/min Glucose Level 115 # Hemoglobin A1c 7.4 H Calcium Level 9.2 Phosphorus Level 5.0 H Magnesium Level 1.9 Total Bilirubin 0.3 Direct Bilirubin 0.00 Indirect Bilirubin 0.3 Aspartate Amino 22 Transf (AST/SGOT) Alanine 26 Aminotransferase (AL T/SGPT) Alkaline Phosphatase 73 Total Protein 6.9 Albumin 4.0 Globulin 2.90 Albumin/Globulin 1.37 Ratio Triglycerides Level 327 H Cholesterol Level 255 H LDL Cholesterol, 151 Calculated HDL Cholesterol 39 Cholesterol/HDL 6.5 Ratio Thyroid Stimulating 1.220 Hormone (TSH) Bedside Glucose 125 116 Medications Medication Current Medications Aspirin (Aspirin) 81 mg DAILY PO Last administered on 07/10/18at 09:34; Admin Dose 81 MG; Start 07/10/18 at 09:30 Metoprolol Tartrate (Lopressor) 25 mg BID PO Last administered on 07/10/18at 20:47; Admin Dose 25 MG; Start 07/10/18 at 21:00 Atorvastatin Calcium (Lipitor) 40 mg HS PO Last administered on 07/10/18at 20:47; Admin Dose 40 MG; Start 07/10/18 at 21:00 IV Flush (NS 3 ml) 3 ml PER PROTOCOL IV ; Start 07/10/18 at 13:00 Ondansetron HCl (Zofran Inj) 4 mg Q6H PRN IV NAUSEA/VOMITING; Start 07/10/18 at 13:00 Acetaminophen (Tylenol Tab) 650 mg Q6H PRN PO .PAIN 1-3 OR TEMP; Start 07/10/18 at 13:00 Diagnostic Test (Pha) (Accu-Chek) 1 ea 02 XX ; Start 07/11/18 at 02:00 Insulin Glargine (Lantus) 45 units DAILY@2000 SC Last administered on 07/10/18at 20:53; Admin Dose 45 UNITS; Start 07/10/18 at 20:00 Insulin Aspart (Novolog Insulin Pen) 10 unit WITH MEALS SC Last administered on 07/10/18at 17:45; Admin Dose 10 UNIT; Start 07/10/18 at 17:55 Insulin Aspart (Novolog Insulin Pen) NOVOLOG *MODERATE* ALGORITHM WITH MEALS BEDTIME SC Last administered on 07/10/18at 17:45; Admin Dose 8 UNIT; Start 07/10/18 at 17:55 Pantoprazole (Protonix Tab) 40 mg DAILY@06 PO ; Start 07/11/18 at 06:00 Tamsulosin HCl (Flomax) 0.4 mg HS PO Last administered on 07/10/18at 20:47; Admin Dose 0.4 MG; Start 07/10/18 at 21:00 Miscellaneous Information 1 ea NOTE XX ; Start 07/10/18 at 14:00 Glucose (Glutose) 15 gm Q15M PRN PO DECREASED GLUCOSE; Start 07/10/18 at 14:00 Glucose (Glutose) 22.5 gm Q15M PRN PO DECREASED GLUCOSE; Start 07/10/18 at 14:00 Dextrose (D50w Syringe) 25 ml Q15M PRN IV DECREASED GLUCOSE; Start 07/10/18 at 14:00 Dextrose (D50w Syringe) 50 ml Q15M PRN IV DECREASED GLUCOSE; Start 07/10/18 at 14:00 Glucagon (Glucagen) 1 mg Q15M PRN IM DECREASED GLUCOSE; Start 07/10/18 at 14:00 Glucose (Glutose) 15 gm Q15M PRN BUCCAL DECREASED GLUCOSE; Start 07/10/18 at 14:00 Insulin Human Regular 100 unit/ Sodium Chloride 100 ml @ 0 mls/hr Q0M ONCE IVPB ; Start 07/11/18 at 15:00; Stop 07/11/18 at 15:01 Norepinephrine 250 ml @ 0 mls/hr ONCE ONCE IV ; Start 07/11/18 at 15:00; Stop 07/11/18 at 15:01 Epinephrine 4 mg/ Dextrose 250 ml @ 0 mls/hr Q0M ONCE IV ; Start 07/11/18 at 15:00; Stop 07/11/18 at 15:01 Phenylephrine HCl 250 ml @ 0 mls/hr ONCE ONCE IV ; Start 07/11/18 at 15:00; Stop 07/11/18 at 15:01 Aspirin (Aspirin) 600 mg ONCE ONCE ID ; Start 07/11/18 at 15:00; Stop 07/11/18 at 15:01 Heparin Sodium (Porcine) 60938 unit/Milrinone Lactate 10 mg/ Sodium Chloride 1,011 ml @ 0 mls/hr ONCE ONCE SC ; Start 07/11/18 at 15:00; Stop 07/11/18 at 15:01 Milrinone Lactate 2 mg/Sodium Chloride 52 ml @ 0 mls/hr ONCE ONCE IV ; Start 07/11/18 at 15:00; Stop 07/11/18 at 15:01 DRAKE LOUIS MD Jul 11, 2018 14:39
[2018-07-11] MEDS ORDERED: ASPIRIN 600 MG SUPP PR ONE (15:00)
[2018-07-11] MEDS ORDERED: NORepinephrine 8MG/250 ML (PMX 250 ML IV ONE (15:00)
[2018-07-11] MEDS ORDERED: EPINEPHrine 4 MG in DEXTROSE 5% 246 ML IV ONE (15:00)
[2018-07-11] MEDS ORDERED: INSULIN HUMAN REGULAR 100 UNIT in SOD CHLORIDE 0.9% 99 ML IVPB ONE (15:00)
[2018-07-11] MEDS ORDERED: MILRINONE LACTATE 2 MG in SOD CHLORIDE 0.9% 50 ML IV ONE (15:00)
[2018-07-11] MEDS ORDERED: HEPARIN (10000 UNITS/ML) 10,000 UNIT, MILRINONE LACTATE 10 MG in SOD CHLORIDE 0.9% 1,00... SC ONE (15:00)
[2018-07-11] MEDS ORDERED: PHENYLephrine 20MG IN 250 ML 250 ML IV ONE (15:00)
--- NOTE | 2018-07-11 15:25 | HPN ---
Date/Time of Note Date/Time of Note DATE: 07/11/18 TIME: 15:25 Interval H&P Admission Note Pt. seen H&P reviewed: No system changes HUSSEIN BOUDREAUX MD Jul 11, 2018 15:25
[2018-07-11] MEDS ORDERED: SODIUM CL BACTERIOSTATIC 30 ML INJ ONE (16:31)
[2018-07-11] MEDS ORDERED: HEPARIN 10,000 UNITS/ML 1 ML INJ ONE (16:43)
[2018-07-11] MEDS ORDERED: CEFAZOLIN 1 GM INJ ONE (17:58)
[2018-07-11] MEDS ORDERED: PROTAMINE 250 MG INJ ONE (18:00)
[2018-07-11] MEDS ORDERED: FUROSEMIDE 20 MG INJ ONE (18:38)
[2018-07-11] MEDS ORDERED: LIDOCAINE 2% (SDV) 5 ML INJ ONE (19:05)
[2018-07-11] MEDS ORDERED: ETOMIDATE 20 MG INJ ONE (19:05)
[2018-07-11] MEDS ORDERED: ROCURONIUM 50 MG INJ ONE (19:05)
--- NOTE | 2018-07-11 19:21 | SIPON ---
Date/Time of Note Date/Time of Note DATE: 07/11/18 TIME: 19:18 Operative Report Preoperative Diagnosis CAD,UNSTABLE ANGINA Postoperative Diagnosis SAME Operation/Procedure Performed CABGX4, EVERETT TO LAD, SVG TO PDA, SVG TO DIAG SEQUENCED TO OM Surgeon see signature line library circulation assistant MARY FIGUEROA MD Second assist: MONTSE TATE Anesthesia: general Estimated blood loss: 250 - 300 ml's Transfusion Required none Specimen NONE Grafts/Implants none Complications none HUSSEIN BOUDREAUX MD Jul 11, 2018 19:21
[2018-07-11] MEDS ORDERED: NITROGLYCERIN 50 MG/D5W (PMX) 250 ML IV SCH ×2 (19:30→20:00)
[2018-07-11] MEDS ORDERED: DOPamine-D5W 1.6 MG/ML 250 ML IV SCH ×2 (19:30→20:00)
[2018-07-11] MEDS ORDERED: HYDROmorphONE 0.5 MG/0.5 ML SYG IV PRN (19:30)
[2018-07-11] MEDS ORDERED: MAGNESIUM SULFATE 1 GM/D5W 100 ML IVPB PRN (19:30)
[2018-07-11] MEDS ORDERED: DEXTROSE 50% 50 ML SYRINGE IV PRN ×2 (19:30)
[2018-07-11] MEDS ORDERED: ONDANSETRON 4 MG INJ IV PRN (19:30)
[2018-07-11] MEDS ORDERED: ACETAMINOPHEN 325 MG TAB PO PRN (19:30)
--- NOTE | 2018-07-11 19:55 | PAC ---
Date/Time of Note Date/Time of Note DATE: 07/11/18 TIME: 19:54 Post-Anesthesia Notes Post-Anesthesia Note Last documented vital signs Vital Signs Date Temp Pulse Resp B/P (MAP) Pulse Ox O2 O2 Flow FiO2 Time Delivery Rate 07/11/18 100 19:47 07/11/18 99.8 19:46 07/11/18 18 113/54 97 Room Air 11:55 (73) Activity: WNL Respiratory function: WNL Cardiovascular function: WNL Mental status: Baseline Pain reasonably controlled: Yes Hydration appropriate: Yes Nausea/Vomiting absent: Yes Comments BP:124/67, P:89, Spo2:100%, T:99,8 JENN BERNABE MD Jul 11, 2018 19:55
[2018-07-11] MEDS ORDERED: FAMOTIDINE 20 MG INJ IV SCH (20:00)
[2018-07-11] MEDS: CEFAZOLIN 1 GM/50 ML (PMX) 50 ML IVPB SCH (20:11)
[2018-07-11] MEDS: ACCU-CHEK XX SCH ×5 (20:23→23:00)
--- NOTE | 2018-07-11 20:28 | OPR ---
DATE OF OPERATION: 07/11/2018 PREOPERATIVE DIAGNOSES: 1. Three-vessel coronary artery disease. 2. Unstable angina. POSTOPERATIVE DIAGNOSES: 1. Three-vessel coronary artery disease. 2. Unstable angina. PROCEDURES: CABG x4, EVERETT to LAD, SVG to PDA, SVG to diagonal artery sequenced to obtuse marginal ar wallace, endoscopic vein harvesting and epiaortic scanning of the ascending aorta. SURGEON: Hussein Patterson MD ENGINEER THIRD ASSISTANT: Jose Eduardo Carroll MD SECOND ASSEMBLY WORKER: NICK Bermudez ANESTHESIOLOGIST: Nahid Nj MD ANESTHESIA: General endotracheal. COMPLICATIONS: None. FINDINGS: LV function improved after revascularization. Cardiopulmonary bypass time was 75 minutes. Crossclamp time was 53 minutes. The flow in the EVERETT to LAD was 24 mL per minute. The LAD was a 2 .25 mm vessel. The RCA was a heavily calcified vessel. We did find a soft spot on the PDA. The parker w in the PDA was 41 mL per minute. It was 1.75 mm vessel. The diagonal artery was a 2 mm vessel. T he OM was a 2 mm vessel. The flow in this sequence vein graft was 56 mL per minute. INDICATION: The patient is a 53-year-old male with a history of VA, was admitted with chest pain aft er an angiogram. He was referred for urgent CABG. Risks, benefits and alternatives were explained t o the patient and his family, who understood and consented. PROCEDURE IN DETAILS: The patient was brought to the operating room, was placed in supine position. He was induced and underwent general endotracheal intubation without complication. Lines were place d. Antibiotics were given. He was prepped and draped in usual sterile fashion. Median sternotomy w as made simultaneous to endoscopic vein harvesting of the saphenous veins of the lower extremity. He emma was given. EVERETT was taken down using clips and cautery. Pericardium was established. The asc ending aorta was scanned. There were some minor plaquing in the ascending aorta, but no atheromas. Pursestring was placed in the ascending aorta followed by the right atrium. Ascending aorta was liv ulated followed by 2-stage venous cannula in the right atrium. We also placed an ascending aortic ve nt. Once all lines were in place, we commenced cardiopulmonary bypass. We arrested the heart using antegrade cardioplegia and topical ice. Once the heart was arrested, we identified the PDA, made art eriotomy, extended with Saavedra scissors and anastomosed our vein graft using 7-0 Prolene in running fa shion in end-to-side manner. The vein grafts were cut to length. We then identified the OM and made arteriotomy, extended with Saavedra scissors, anastomosed our vein graft using 7-0 Prolene in running f ashion in end-to-side manner. We then sequenced to the diagonal artery in end-to-side fashion using 7-0 Prolene. We then identified the mid LAD, made arteriotomy, extended with Saavedra scissors, anastom osed our EVERETT using 7-0 Prolene in running fashion in end-to-side manner. The patient was then rewar med. We removed the crossclamp. He regained spontaneous rhythm. We placed a ventricular pacing wir e. We placed a partial clamp on the ascending aorta, made 2 aortotomies, anastomosed our vein graft using 5-0 Prolene in running fashion in end-to-side manner. Partial clamp was removed. Vein grafts were deaired. Distal hemostasis was achieved. We began ventilating and weaned him off cardiopulmona ry bypass. Protamine was given. The patient was de-lined. We placed a left pleural tube and anteri or mediastinal tube. Once hemostasis was achieved, we closed the chest using interrupted cables foll owed by sternal plates and screws, followed by closure of the fascia using 0 Vicryl and the skin usin g 4-0 Monocryl in subcuticular fashion. Lower extremity incisions were closed using 3-0 Vicryl for t he deep layer and 4-0 Monocryl for the skin. Dressings were applied. The patient was taken to the [facility] in critical but stable condition. Dictated By: HUSSEIN WOOD/OLIVIA Conf#: [id number] DID#: [id number] CC: HEIDI OLGUIN DO; DRAKE LOUIS MD;*End*
[2018-07-11] MEDS ORDERED: POTASSIUM CHLORIDE 40 MEQ, CALCIUM CHLORIDE 10% 1 GM in DEXTROSE 5%-0.225% NACL 1,000 ML IV SCH (20:30)
[2018-07-11] MEDS ORDERED: PROPOFOL 100 ML ONE (20:49)
[2018-07-11] MEDS: PHENYLephrine 20MG IN 250 ML 250 ML IV SCH ×2 (21:00→23:30)
[2018-07-11] MEDS ORDERED: PHENYLephrine 40 MG in DEXTROSE 5% 246 ML IV SCH (21:00)
[2018-07-11] MEDS: POTASSIUM CHLORIDE 50 ML IVPB PRN ×3 (21:18→22:22)
[2018-07-11] MEDS: PROPOFOL 100 ML IV SCH (21:21)
[2018-07-12] VITALS (63 sets, daily range): BP systolic 96–152; BP diastolic 60–92; PULSE 84–120; RESP 7–26; TEMP 101–101.4
[2018-07-12] MEDS: INSULIN HUMAN REGULAR 100 UNIT in SOD CHLORIDE 0.9% 99 ML IV SCH ×2 (00:02→14:05)
[2018-07-12] MEDS: ACCU-CHEK XX SCH ×24 (00:31→23:00)
[2018-07-12] MEDS: POTASSIUM CHLORIDE 50 ML IVPB PRN (00:36)
[2018-07-12] MEDS: PROPOFOL 100 ML IV SCH (00:36)
[2018-07-12] MEDS: PHENYLephrine 20MG IN 250 ML 250 ML IV SCH (02:51)
[2018-07-12] MEDS: CEFAZOLIN 1 GM/50 ML (PMX) 50 ML IVPB SCH ×2 (03:28→11:42)
[2018-07-12] MEDS: HYDROmorphONE 0.5 MG/0.5 ML SYG IV PRN ×2 (03:28→06:30)
--- NOTE | 2018-07-12 07:43 | CONS ---
Assessment/Plan Assessment/Plan Assessment/Plan (Daily) S/P CABG Preserved ejection fraction Hypertension Dyslipidemia -Patient status post left heart catheterization today with evidence of severe coronary artery disease in multiple vessels including left main - s/p CABG -Echocardiogram with preserved ejection fraction -Wean off dopamine -RX asa, atorvastatin, coreg today - ACEI in 1- 2 days -CTS involved Consultation Date/Type/Reason Admit Date/Time Jul 10, 2018 at 10:01 Initial Consult Date 07/10/18 Type of Consult Cardiology Date/Time of Note DATE: 07/12/18 TIME: 07:41 24 HR Interval Summary Free Text/Dictation The patient doing well post cabg Exam/Review of Systems Vital Signs Vitals Vital Signs Date Temp Pulse Resp B/P (MAP) Pulse Ox O2 O2 Flow FiO2 Time Delivery Rate 07/12/18 101.0 102 24 133/69 99 07:00 (90) 07/12/18 4.0 33 06:23 07/11/18 Room Air 11:55 Intake and Output 07/11/18 07/11/18 07/12/18 1515:00 23:00 07:00 IntakeIntake Total 0 ml 2828.149 ml 995.38 ml OutputOutput Total 3852 ml 935 ml BalanceBalance 0 ml -1023.851 ml 60.38 ml Labs Result Diagram: 07/12/18 0340 07/12/18 0340 Results 24hrs Laboratory Tests Test 07/11/18 08:01 07/11/18 08:22 07/11/18 12:03 07/11/18 19:24 White Blood 10.1 Count Red Blood Count 4.29 L Hemoglobin 12.9 L Hematocrit 37.2 L Mean 86.7 Corpuscular Volume Mean 30.1 Corpuscular Hemoglobin Mean 34.7 Corpuscular Hemoglobin Conc ent Red Cell 11.8 Distribution Width Platelet Count 287 Mean Platelet 9.5 Volume Immature 0.400 Granulocytes % Neutrophils % 50.1 Lymphocytes % 38.8 Monocytes % 8.3 Eosinophils % 1.7 Basophils % 0.7 Nucleated Red 0.0 Blood Cells % Immature 0.040 H Granulocytes # Neutrophils # 5.0 Lymphocytes # 3.9 H Monocytes # 0.8 Eosinophils # 0.2 Basophils # 0.1 Nucleated Red 0.0 Blood Cells # Prothrombin 12.3 Time Prothrombin 1.0 Time Ratio INR 0.90 International Normalized Rati o Activated 23.9 Partial Thrombo plast Time Sodium Level 139 Potassium Level 4.0 Chloride Level 102 Carbon Dioxide 26 Level Anion Gap 11 Blood Urea 12 Nitrogen Creatinine 0.65 Est Glomerular > 60 Filtrat Rate mL/min Glucose Level 115 # Hemoglobin A1c 7.4 H Calcium Level 9.2 Phosphorus 5.0 H Level Magnesium Level 1.9 Total Bilirubin 0.3 Direct 0.00 Bilirubin Indirect 0.3 Bilirubin Aspartate Amino 22 Transf (AST/SGO T) Alanine 26 Aminotransferas e (ALT/SGPT) Alkaline 73 Phosphatase Total Protein 6.9 Albumin 4.0 Globulin 2.90 Albumin/Globuli 1.37 n Ratio Triglycerides 327 H Level Cholesterol 255 H Level LDL 151 Cholesterol, Calculated HDL Cholesterol 39 Cholesterol/HDL 6.5 Ratio Thyroid 1.220 Stimulating Hormone (TSH) Bedside Glucose 125 116 Blood Gas Blood Specimen arterial Source Arterial Blood 07/11/2018 8:05 Date Drawn :44 PM Arterial Blood 7.330 L pH (Temp corrected ) Arterial Blood 41.4 pCO2 (Temp correct) Arterial Blood 97.3 pO2 (Temp corrected ) Arterial Blood 21.3 L HCO3 Arterial Blood -4.3 L Base Excess Arterial Blood 96.1 Oxygen Saturati on Nando Test N/A Arterial Blood A-Line Gas Puncture Site Arterial 0.2 Blood Carboxyhe moglobin Arterial Blood 0.3 Methemoglobin Blood Gas A-a 357.3 H O2 Differential Oxyhemoglobin 95.6 Percent Blood Gas 37.0 Temperature Blood Gas 14.0 Respiration Rate Blood Gas 14 Actual Respiration Rat e Blood Gas VENT - AC Modality FiO2 70.0 Blood Gas Tidal 600.0 Volume Blood Gas Low 5.0 PEEP Setting Blood Gas 25.0 Inspiratory Pressure Blood Gas S.H. Notified Whom Blood Gas 07/11/2018 8:16 Notified Time :20 PM Test 07/11/18 20:00 07/11/18 20:02 07/11/18 20:12 07/11/18 20:55 Blood Gas Blood venous Specimen Source Arterial Blood 07/11/2018 8:06: Date Drawn 26 PM Arterial Blood VENOUS LINE Gas Puncture Site Nando Test N/A Mixed Venous 7.324 Blood pH Mixed Venous 49.0 Blood PCO2 Mixed Venous 39.3 Blood PO2 Mixed Venous 24.9 Blood HCO3 Mixed Venous -1.5 Blood Base Excess Mixed Venous 70.1 Blood O2 Saturation Mixed Venous 12.5 Blood Total Hemoglobi n Mixed Venous 69.7 Blood Oxyhemogl obin Mixed Venous 0.3 Bld Carboxyhemo globin Mixed Venous 0.3 Blood Methemogl obin Blood Gas 37.0 Temperature Blood Gas 14.0 Respiration Rate Blood Gas 14 Actual Respiration Rat e Blood Gas VENT - AC Modality FiO2 70.0 Blood Gas Tidal 600.0 Volume Blood Gas Low 5.0 PEEP Setting Blood Gas 25.0 Inspiratory Pressure Blood Gas S.H. Notified Whom Blood Gas 07/11/2018 8:18: Notified Time 34 PM White Blood 26.3 #H Count Red Blood Count 3.88 L Hemoglobin 11.8 L Hematocrit 33.7 L Mean 86.9 Corpuscular Volume Mean 30.4 Corpuscular Hemoglobin Mean 35.0 Corpuscular Hemoglobin Conc ent Red Cell 11.8 Distribution Width Platelet Count 230 Mean Platelet 9.1 Volume Immature 0.800 H Granulocytes % Neutrophils % Segmented 70 Neutrophils % (Manual) Band 4 Neutrophils % (Manual) Lymphocytes % Lymphocytes % 12 L (Manual) Reactive 6 H Lymphocytes % (Manual) Monocytes % Monocytes % 6 (Manual) Eosinophils % Eosinophils % 2 (Manual) Basophils % Nucleated Red 0.0 Blood Cells % Immature 0.210 H Granulocytes # Neutrophils # Neutrophils # 18.7 H (Manual) Band 1.0 H Neutrophils # Lymphocytes 3.1 H (Manual) Lymphocytes # Reactive 1.5 H Lymphocytes # Monocytes # Monocytes # 1.5 H (Manual) Eosinophils # Basophils # Nucleated Red Blood Cells # Platelet NORMAL Estimate Prothrombin 15.4 #H Time Prothrombin 1.2 Time Ratio INR 1.21 International Normalized Rati o Activated 24.5 Partial Thrombo plast Time Sodium Level 139 Potassium Level 3.7 Chloride Level 106 Carbon Dioxide 24 Level Anion Gap 9 Blood Urea 12 Nitrogen Creatinine 0.84 Est Glomerular > 60 Filtrat Rate mL/min Glucose Level 104 Calcium Level 9.1 Magnesium Level 3.0 H Bedside Glucose 107 101 Test 07/11/18 22:04 07/11/18 23:03 07/11/18 23:14 07/11/18 23:51 Bedside Glucose 121 129 156 Potassium Level 4.6 Test 07/12/18 01:02 07/12/18 02:02 07/12/18 02:51 07/12/18 03:40 Bedside Glucose 170 173 181 White Blood 19.1 #H Count Red Blood Count 3.77 L Hemoglobin 11.6 L Hematocrit 33.6 L Mean 89.1 Corpuscular Volume Mean 30.8 Corpuscular Hemoglobin Mean 34.5 Corpuscular Hemoglobin Conc ent Red Cell 12.2 Distribution Width Platelet Count 270 Mean Platelet 9.9 Volume Immature 0.600 H Granulocytes % Neutrophils % 79.2 H Lymphocytes % 10.6 L Monocytes % 9.2 Eosinophils % 0.1 Basophils % 0.3 Nucleated Red 0.0 Blood Cells % Immature 0.110 H Granulocytes # Neutrophils # 15.1 H Lymphocytes # 2.0 Monocytes # 1.8 H Eosinophils # 0.0 Basophils # 0.1 Nucleated Red 0.0 Blood Cells # Prothrombin 13.9 Time Prothrombin 1.1 Time Ratio INR 1.06 International Normalized Rati o Activated 30.4 Partial Thrombo plast Time Sodium Level 140 Potassium Level 4.9 Chloride Level 110 Carbon Dioxide 23 Level Anion Gap 7 Blood Urea 11 Nitrogen Creatinine 0.76 Est Glomerular > 60 Filtrat Rate mL/min Glucose Level 181 Calcium Level 8.8 Magnesium Level 2.3 Test 07/12/18 04:09 07/12/18 04:56 07/12/18 05:00 07/12/18 05:53 Bedside Glucose 180 170 174 Blood Gas Blood arterial Specimen Source Arterial Blood 07/12/2018 5:47: Date Drawn 25 AM Arterial Blood 7.362 pH (Temp corrected ) Arterial Blood 34.6 L pCO2 (Temp correct) Arterial Blood 100.7 H pO2 (Temp corrected ) Arterial Blood 19.2 L HCO3 Arterial Blood -5.5 L Base Excess Arterial Blood 96.9 Oxygen Saturati on Nando Test N/A Arterial Blood A-Line Gas Puncture Site Arterial 0.2 Blood Carboxyhe moglobin Arterial Blood 0.1 Methemoglobin Blood Gas A-a 144.7 H O2 Differential Oxyhemoglobin 96.6 Percent Blood Gas 37.0 Temperature Blood Gas 23 Actual Respiration Rat e Blood Gas VENT - CPAP Modality FiO2 40.0 Blood Gas Low 0 PEEP Setting Blood Gas LAURA GONGORA Notified Whom Blood Gas 07/12/2018 5:58: Notified Time 59 AM Test 07/12/18 06:45 Blood Gas BLMV Specimen Source Arterial Blood 07/12/2018 6:55: Date Drawn 00 AM Arterial Blood OTHER Gas Puncture Site Nando Test N/A Mixed Venous 36.6 Blood PO2 Mixed Venous 67.3 Blood O2 Saturation Mixed Venous 12.2 Blood Total Hemoglobi n Mixed Venous 67.0 Blood Oxyhemogl obin Mixed Venous 0.3 Bld Carboxyhemo globin Mixed Venous 0.1 Blood Methemogl obin Blood Gas 37.0 Temperature Blood Gas NASAL CANNULA Modality FiO2 33.0 Blood Gas TM Notified Whom Blood Gas 07/12/2018 7:21: Notified Time 54 AM Bedside Glucose 164 Medications Medications Current Medications Insulin Human Regular 100 unit/ Sodium Chloride 100 ml @ 0 mls/hr PER PROTOCOL IV Last administered on 07/12/18at 00:02; Admin Dose 2 MLS/HR; Start 07/11/18 at 19:30 Miscellaneous Information (* Miscellaneous Pharmacy Order) Treatment of Hypoglycemia: 1.BG 51... Per protocol XX ; Start 07/11/18 at 19:30 Dextrose (D50w Syringe) 25 ml Q15M PRN IV .DECREASED GLUCOSE; Start 07/11/18 at 19:30 Dextrose (D50w Syringe) 50 ml Q15M PRN IV .DECREASED GLUCOSE; Start 07/11/18 at 19:30 Potassium Chloride 40 meq/ Calcium Chloride 1 gm/Dextrose/ Sodium Chloride 1,030 ml @ 60 mls/hr [id number] IV Last administered on 07/11/18at 22:09; Admin Dose 60 MLS/HR; Start 07/11/18 at 20:30 Cefazolin Sodium 50 ml @ 100 mls/hr Q8H IVPB Last administered on 07/12/18at 03:28; Admin Dose 100 MLS/HR; Start 07/11/18 at 19:30; Stop 07/12/18 at 11:59 Hydromorphone HCl (Dilaudid) 0.2 mg Q15M PRN IV PAIN LEVEL 1-5 Last administe red on 07/12/18at 06:30; Admin Dose 0.2 MG; Start 07/11/18 at 19:30 Hydromorphone HCl (Dilaudid) 0.4 mg Q15M PRN IV PAIN LEVEL 6-10 Last administered on 07/11/18at 23:44; Admin Dose 0.4 MG; Start 07/11/18 at 19:30 Oxycodone/ Acetaminophen (Percocet (5/ 325)) 1 tab Q3H PRN PO PAIN LEVEL 1-5; Start 07/11/18 at 19:30 Oxycodone/ Acetaminophen (Percocet (5/ 325)) 2 tab Q3H PRN PO PAIN LEVEL 6-10; Start 07/11/18 at 19:30 Ondansetron HCl (Zofran Inj) 4 mg Q6H PRN IV NAUSEA AND/OR VOMITING; Start 06/24 11/11 at 19:30 Famotidine (Pepcid Iv) 20 mg BID@08,20 IV Last administered on 07/11/18at 20:11; Admin Dose 20 MG; Start 07/11/18 at 20:00 Acetaminophen (Tylenol Tab) 650 mg Q3H PRN PO ELEVATED TEMPERATURE; Start 07/11/18 at 19:30 Potassium Chloride 50 ml @ 50 mls/hr SEE DIRECTION PRN IVPB K+ LEVEL Last administered on 07/12/18 00:36; Admin Dose 50 MLS/HR; Start 07/11/18 at 19:30 Magnesium Sulfate/ Dextrose 100 ml @ 100 mls/hr PRN PRN IVPB PENDING LAB VALUE; Start 07/11/18 at 19:30 Ketorolac Tromethamine (Toradol) 30 mg Q6H PRN IV PAIN LEVEL 1-3; Start 07/11/18 at 19:30; Stop 07/14/18 at 19:29 Hydromorphone HCl (Dilaudid) 1 mg Q3H PRN IV SEVERE PAIN LEVEL 7-10; Start 07/11/18 at 19:30 Enoxaparin Sodium (Lovenox) 40 mg DAILY SC ; Start 07/12/18 at 09:00 Nitroglycerin/ Dextrose 250 ml @ 1.5 mls/hr PER PROTOCOL IV Last administered on 07/11/18at 20:09; Admin Dose 1.5 MLS/HR; Start 07/11/18 at 20:00 Dopamine HCl/ Dextrose 250 ml @ 7.365 mls/ hr PER PROTOCOL IV Last administered on 07/11/18 20:09; Admin Dose 4.04 MLS/HR; Start 07/11/18 at 20:00 Diagnostic Test (Pha) (Accu-Chek) 1 ea Q1H XX Last administered on 07/12/18 07:39; Admin Dose 1 EA; Start 07/11/18 at 21:00 Propofol 100 ml @ 2.946 mls/ hr Q12H IV Last administered on 4/19/19at 00:36; Admin Dose 23.52 MLS/HR; Start 07/11/18 at 21:00 Phenylephrine HCl 250 ml @ 75 mls/hr TITRATE IV Last administered on 07/12/18at 02:51; Admin Dose 52 MLS/HR; Start 07/11/18 at 21:28 GRETCHEN MEADOWS MD Jul 12, 2018 07:43
[2018-07-12] MEDS: OXYCODONE/ACETAMINOPHEN (5/325) TAB PO PRN ×2 (08:26→14:07)
[2018-07-12] MEDS: HYDROmorphONE 1 MG/ML SYG IV PRN ×5 (08:40→23:16)
[2018-07-12] MEDS: FAMOTIDINE 20 MG TAB PO SCH ×2 (09:15→21:27)
[2018-07-12] MEDS: ENOXAPARIN 40 MG/0.4 ML SYG SC SCH (09:16)
--- NOTE | 2018-07-12 09:16 | PN ---
Date/Time of Note Date/Time of Note DATE: 07/12/18 TIME: 09:07 Assessment/Plan VTE Prophylaxis Risk score (from Nsg)>0 risk: 7 SCD applied (from Nsg): Yes Pharmacological prophylaxis: LMWH Lines/Catheters IV Catheter Type (from Nrsg): Cordis Urinary Cath still in place: Yes Reason Cath still needed: other (indicate) (postoperative) Assessment/Plan Assessment/Plan 53 yo obese man with HTN, IDDM, severe CAD who presents with 3-vessel CAD #CAD - Cardiac cath 07/10 shows severe stenosis of the L main, circumflex, LAD, and RCA. - Dr. Patterson, Dr. Luu following. Previously saw Saleem in clinic. - s/p CABG x4 on 07/11. - Cardiology/CT surgery to manage antiplatelet and anticoagulation postoperatively. - Currently in ICU post surgery, extubated, breathing on nasal cannula; and off pressors #IDDM - Postoperatively he is on insulin gtt. - Blood sugars well controlled. - When condition improves, tolerating diet, and getting ready to leave ICU I will switch him back to subQ insulin. #HTN - Holding home lisinopril; just came off pressors. - Cardiology to determine when to reintroduce ACEi and BB. #GERD - Continue H2 anthony #BPH - Cont tamsulosin DVT: SCDs GI: PPI Result Diagram: 07/12/18 0340 07/12/18 0340 Subjective 24 Hr Interval Summary Free Text/Dictation Taken for CABG x4 yesterday afternoon. Postoperatively to ICU. This morning on my exam patient is extubated and off pressors; awake and alert. He is in moderate postoperative pain. Exam/Review of Systems Exam Vitals Vital Signs Date Temp Pulse Resp B/P (MAP) Pulse Ox O2 O2 Flow FiO2 Time Delivery Rate 07/12/18 98 26 113/80 97 08:30 (91) 07/12/18 101.2 08:00 07/12/18 Nasal 2.0 08:00 Cannula 07/12/18 33 06:23 Intake and Output 07/11/18 07/11/18 07/12/18 1515:00 23:00 07:00 IntakeIntake Total 0 ml 2828.149 ml 995.38 ml OutputOutput Total 3852 ml 935 ml BalanceBalance 0 ml -1023.851 ml 60.38 ml Exam Gen: Obese man lying in bed in no acute distress. Eyes: PERRL, no icterus HEENT: Moist mucous membranes, clear oropharynx Neck: Supple, no lymphadenopathy, no JVD Card: Regular rate and rhythm, no murmurs Chest: Midline sternotomy with dressing. Pacer wires in. Two drains are in place with serosanguineous output. Pulm: Diminished lung expansion bilaterally with reduced breath sounds throughout. On nasal cannula. Abd: Obese, nondistended. : Olivares in palce with clear yellow urine. Ext: L wrist arterial line in place. No LE edema. Medications Medication Current Medications Insulin Human Regular 100 unit/ Sodium Chloride 100 ml @ 0 mls/hr PER PROTOCOL IV Last administered on 07/12/18at 00:02; Admin Dose 2 MLS/HR; Start 07/11/18 at 19:30 Miscellaneous Information (* Miscellaneous Pharmacy Order) Treatment of Hypoglycemia: 1.BG 51... Per protocol XX ; Start 07/11/18 at 19:30 Dextrose (D50w Syringe) 25 ml Q15M PRN IV .DECREASED GLUCOSE; Start 07/11/18 at 19:30 Dextrose (D50w Syringe) 50 ml Q15M PRN IV .DECREASED GLUCOSE; Start 07/11/18 at 19:30 Potassium Chloride 40 meq/ Calcium Chloride 1 gm/Dextrose/ Sodium Chloride 1,030 ml @ 60 mls/hr [id number] IV Last administered on 07/11/18at 22:09; Admin Dose 60 MLS/HR; Start 07/11/18 at 20:30 Cefazolin Sodium 50 ml @ 100 mls/hr Q8H IVPB Last administered on 07/12/18at 03:28; Admin Dose 100 MLS/HR; Start 07/11/18 at 19:30; Stop 07/12/18 at 11:59 Hydromorphone HCl (Dilaudid) 0.2 mg Q15M PRN IV PAIN LEVEL 1-5 Last administered on 07/12/18at 06:30; Admin Dose 0.2 MG; Start 07/11/18 at 19:30 Hydromorphone HCl (Dilaudid) 0.4 mg Q15M PRN IV PAIN LEVEL 6-10 Last admi nistered on 07/11/18at 23:44; Admin Dose 0.4 MG; Start 07/11/18 at 19:30 Oxycodone/ Acetaminophen (Percocet (5/ 325)) 1 tab Q3H PRN PO PAIN LEVEL 1-5; Start 07/11/18 at 19:30 Oxycodone/ Acetaminophen (Percocet (5/ 325)) 2 tab Q3H PRN PO PAIN LEVEL 6-10 Last administered on 07/12/18at 08:26; Admin Dose 2 TAB; Start 07/11/18 at 19:30 Ondansetron HCl (Zofran Inj) 4 mg Q6H PRN IV NAUSEA AND/OR VOMITING; Start 07/11/18 at 19:30 Acetaminophen (Tylenol Tab) 650 mg Q3H PRN PO ELEVATED TEMPERATURE; Start 07/11/18 at 19:30 Potassium Chloride 50 ml @ 50 mls/hr SEE DIRECTION PRN IVPB K+ LEVEL Last admin istered on 07/12/18at 00:36; Admin Dose 50 MLS/HR; Start 07/11/18 at 19:30 Magnesium Sulfate/ Dextrose 100 ml @ 100 mls/hr PRN PRN IVPB PENDING LAB VALUE; Start 07/11/18 at 19:30 Ketorolac Tromethamine (Toradol) 30 mg Q6H PRN IV PAIN LEVEL 1-3; Start 07/11/18 at 19:30; Stop 07/14/18 at 19:29 Hydromorphone HCl (Dilaudid) 1 mg Q3H PRN IV SEVERE PAIN LEVEL 7-10 Last administered on 07/12/18at 08:40; Admin Dose 1 MG; Start 07/11/18 at 19:30 Enoxaparin Sodium (Lovenox) 40 mg DAILY SC ; Start 07/12/18 at 09:00 Nitroglycerin/ Dextrose 250 ml @ 1.5 mls/hr PER PROTOCOL IV Last administered on 07/11/18at 20:09; Admin Dose 1.5 MLS/HR; Start 07/11/18 at 20:00 Dopamine HCl/ Dextrose 250 ml @ 7.365 mls/ hr PER PROTOCOL IV Last administered on 07/11/18at 20:09; Admin Dose 4.04 MLS/HR; Start 07/11/18 at 20:00 Diagnostic Test (Pha) (Accu-Chek) 1 ea Q1H XX Last administered on 07/12/18at 08:11; Admin Dose 1 EA; Start 07/11/18 at 21:00 Propofol 100 ml @ 2.946 mls/ hr Q12H IV Last administered on 07/12/18at 00:36; Admin Dose 23.52 MLS/HR; Start 07/11/18 at 21:00 Phenylephrine HCl 250 ml @ 75 mls/hr TITRATE IV Last administered on 07/12/18at 02:51; Admin Dose 52 MLS/HR; Start 07/11/18 at 21:28 Famotidine (Pepcid) 20 mg BID PO ; Start 07/12/18 at 09:00 DRAKE LOUIS MD Jul 12, 2018 09:16
--- NOTE | 2018-07-12 13:01 | PN ---
Date/Time of Note Date/Time of Note DATE: 07/12/18 TIME: 13:00 Assessment/Plan Lines/Catheters IV Catheter Type (from Nrs): A Line Boone in Place (from Nrs): Yes Assessment/Plan Assessment/Plan extubated this morning, lines removed and boone. cxr clear. labs ok, OOB to chair Exam/Review of Systems Vital Signs Vitals Vital Signs Date Temp Pulse Resp B/P (MAP) Pulse Ox O2 O2 Flow FiO2 Time Delivery Rate 07/12/18 100.8 97 24 120/70 97 Nasal 2.0 12:00 (87) Cannula 07/12/18 33 06:23 Intake and Output 07/11/18 07/11/18 07/12/18 1515:00 23:00 07:00 IntakeIntake Total 0 ml 2828.149 ml 995.38 ml OutputOutput Total 3852 ml 935 ml BalanceBalance 0 ml -1023.851 ml 60.38 ml Results Result Diagram: 07/12/18 0340 07/12/18 0340 HUSSEIN BOUDREAUX MD Jul 12, 2018 13:01
--- NOTE | 2018-07-12 18:43 | RADRPT ---
Vent Rate: 95 bpm RR Interval: 0 msec VT Interval: 138 msec QRS Duration: 78 msec QT Interval: 324 msec QTC Interval: 407 msec P-R-T [place]: 40 - 23 - 48 degrees Normal sinus rhythm Nonspecific T wave abnormality Abnormal ECG Electronically Signed By: Ricardo Steve
--- NOTE | 2018-07-12 18:48 | RADRPT ---
Vent Rate: 97 bpm RR Interval: 0 msec MD Interval: 144 msec QRS Duration: 76 msec QT Interval: 314 msec QTC Interval: 398 msec P-R-T [place]: 59 - 46 - 67 degrees Normal sinus rhythm Cannot rule out Inferior infarct , age undetermined Abnormal ECG Electronically Signed By: Ricardo Steve
[2018-07-13] VITALS (24 sets, daily range): BP systolic 80–156; BP diastolic 55–145; PULSE 79–104; RESP 16–26
[2018-07-13] MEDS: OXYCODONE/ACETAMINOPHEN (5/325) TAB PO PRN ×4 (01:04→18:01)
[2018-07-13] MEDS: ACCU-CHEK XX SCH ×24 (01:29→23:00)
[2018-07-13] MEDS: HYDROmorphONE 1 MG/ML SYG IV PRN ×4 (02:17→22:56)
[2018-07-13] MEDS: ENOXAPARIN 40 MG/0.4 ML SYG SC SCH (09:09)
[2018-07-13] MEDS: FAMOTIDINE 20 MG TAB PO SCH ×2 (09:11→20:41)
--- NOTE | 2018-07-13 09:33 | PN ---
Date/Time of Note Date/Time of Note DATE: 07/13/18 TIME: 09:31 Assessment/Plan Lines/Catheters IV Catheter Type (from Nrsg): cordis Olivares in Place (from Nrsg): Yes Assessment/Plan Assessment/Plan s/p cabg Dm II iv insulin hypertension chest tubes still draining d/c cordis beta anthony transition insulin mobilize Subjective 24 Hr Interval Summary Constitutional: no complaints Feeding: advancing diet Pain Control: well controlled Exam/Review of Systems Vital Signs Vitals Vital Signs Date Temp Pulse Resp B/P (MAP) Pulse Ox O2 O2 Flow FiO2 Time Delivery Rate 07/13/18 101 23 156/145 97 Nasal 2.0 09:00 (149) Cannula 07/13/18 98.4 08:00 07/13/18 27 01:29 Intake and Output 07/12/18 07/12/18 07/13/18 1515:00 23:00 07:00 IntakeIntake Total 618 ml 260.0 ml 178.5 ml OutputOutput Total 457 ml 367 ml 90 ml BalanceBalance 161 ml -107.0 ml 88.5 ml Exam Constitutional: alert Psych: no complaints Head: atraumatic Eyes: EOMI ENMT: mucosa pink and moist Neck: supple Respiratory: other (2 liter n/c chest tube 350 cc/24 750 cc total is to 750 cc) Cardiovascular: regular rate and rhythm Gastrointestinal: soft Musculoskeletal: nl extremities to inspection Neurological: IMAGING CLERK II-XII intact Results Result Diagram: 07/13/1818 07/13/18 0518 KARRI FIGUEROA MD Jul 13, 2018 09:33
[2018-07-13] MEDS ORDERED: INSULIN GLARGINE [LANTus] (100 UNITS/ML) SYG SC ONE (11:30)
[2018-07-13] MEDS: INSULIN ASPART [NOVOLOG] 3 ML PEN SC SCH ×5 (11:59→20:47)
--- NOTE | 2018-07-13 14:14 | PN ---
Date/Time of Note Date/Time of Note DATE: 07/13/18 TIME: 14:09 Assessment/Plan VTE Prophylaxis Risk score (from Nsg)>0 risk: 7 SCD applied (from Nsg): No SCD contraindicated: low risk/ambulating Pharmacological prophylaxis: LMWH Lines/Catheters IV Catheter Type (from Nrsg): Cordis Central line still needed: Yes Urinary Cath still in place: No Assessment/Plan Assessment/Plan 53 yo obese man with HTN, IDDM, severe CAD who presents with 3-vessel CAD #CAD - Cardiac cath 07/10 shows severe stenosis of the L main, circumflex, LAD, and RCA. - Dr. Patterson, Dr. Luu following. Previously [place] clinic. - s/p CABG x4 on 07/11. - Cardiology/CT surgery to manage antiplatelet and anticoagulation postoperatively. - Currently in ICU post surgery, extubated, breathing on nasal cannula; and off pressors #IDDM - Resume long-acting insulin, mealtime aspart, and sliding scale. - Gave reduced dose glargine today due to poor appetite and already recieved IV insulin. Will give full dose tomorrow. - Stop insulin gtt. #HTN - Holding home lisinopril; just came off pressors. - Cardiology to determine when to reintroduce ACEi and BB. #GERD - Continue H2 anthony #BPH - Cont tamsulosin DVT: SCDs GI: PPI Result Diagram: 07/13/1851707/13/18517 Subjective 24 Hr Interval Summary Free Text/Dictation Doing well. Continues to complain of post-op pain Sat up with assistance yesterday. Tolerating minimal diet. Olivares out. Exam/Review of Systems Exam Vitals Vital Signs Date Temp Pulse Resp B/P (MAP) Pulse Ox O2 O2 Flow FiO2 Time Delivery Rate 07/13/18 92 12:00 07/13/18 23 156/145 97 Nasal 2.0 09:00 (149) Cannula 07/13/18 98.4 08:00 07/13/18 27 01:29 Intake and Output 07/12/18 07/12/18 07/13/18 1515:00 23:00 07:00 IntakeIntake Total 618 ml 260.0 ml 178.5 ml OutputOutput Total 457 ml 367 ml 90 ml BalanceBalance 161 ml -107.0 ml 88.5 ml Exam Gen: Obese man lying in bed in no acute distress. Eyes: PERRL, no icterus HEENT: Moist mucous membranes, clear oropharynx Neck: Supple, no lymphadenopathy, no JVD Card: Regular rate and rhythm, no murmurs Chest: Midline sternotomy with dressing. Pacer wires in. Two drains are in place with serosanguineous output. Pulm: Diminished lung expansion bilaterally with reduced breath sounds through out. On nasal cannula. Abd: Obese, nondistended. : Olivares out. Ext: L wrist arterial line in place. No LE edema. Results Results 24hrs Laboratory Tests Test 07/12/18 15:02 07/12/18 17:04 07/12/18 19:04 07/12/18 19:47 Bedside Glucose 156 144 103 Hematocrit 29.7 L Test 07/12/18 21:28 07/12/18 23:05 07/13/18 01:29 07/13/18 04:09 Bedside Glucose 106 110 121 108 Test 07/13/18 05:18 07/13/18 05:44 07/13/18 07:02 07/13/18 09:08 White Blood Count 17.7 H Red Blood Count 3.38 L Hemoglobin 10.1 L Hematocrit 29.8 L Mean Corpuscular 88.2 Volume Mean Corpuscular 29.9 Hemoglobin Mean Corpuscular 33.9 Hemoglobin Concent Red Cell 11.7 Distribution Width Platelet Count 200 # Mean Platelet Volume 9.6 Immature 0.400 Granulocytes % Neutrophils % 67.6 Lymphocytes % 20.2 Monocytes % 11.2 H Eosinophils % 0.3 Basophils % 0.3 Nucleated Red Blood 0.0 Cells % Immature 0.070 H Granulocytes # Neutrophils # 12.0 H Lymphocytes # 3.6 H Monocytes # 2.0 H Eosinophils # 0.1 Basophils # 0.1 Nucleated Red Blood 0.0 Cells # Prothrombin Time 14.3 Prothrombin Time 1.1 Ratio INR International 1.10 Normalized Ratio Activated 32.6 Partial Thromboplast Time Sodium Level 135 Potassium Level 4.4 Chloride Level 103 Carbon Dioxide Level 24 Anion Gap 8 Blood Urea Nitrogen 12 Creatinine 0.80 Est Glomerular > 60 Filtrat Rate mL/min Glucose Level 107 # Calcium Level 8.8 Magnesium Level 2.0 Bedside Glucose 113 108 137 Test 07/13/18 11:05 07/13/18 11:56 Bedside Glucose 167 166 Medications Medication Current Medications Insulin Human Regular 100 unit/ Sodium Chloride 100 ml @ 0 mls/hr PER PROTOCOL IV Last administered on 07/12/18at 14:05; Admin Dose 7 MLS/HR; Start 07/11/18 at 19:30; Status Hold Miscellaneous Information (* Miscellaneous Pharmacy Order) Treatment of Hypoglycemia: 1.BG 51... Per protocol XX ; Start 07/11/18 at 19:30 Dextrose (D50w Syringe) 25 ml Q15M PRN IV .DECREASED GLUCOSE; Start 07/11/18 at 19:30 Dextrose (D50w Syringe) 50 ml Q15M PRN IV .DECREASED GLUCOSE; Start 07/11/18 at 19:30 Oxycodone/ Acetaminophen (Percocet (5/ 325)) 1 tab Q3H PRN PO PAIN LEVEL 1-5; Start 07/11/18 at 19:30 Oxycodone/ Acetaminophen (Percocet (5/ 325)) 2 tab Q3H PRN PO PAIN LEVEL 6-10 Last administered on 07/13/18at 10:44; Admin Dose 2 TAB; Start 07/11/18 at 19:30 Ondansetron HCl (Zofran Inj) 4 mg Q6H PRN IV NAUSEA AND/OR VOMITING; Start 07/11/18 at 19:30 Acetaminophen (Tylenol Tab) 650 mg Q3H PRN PO ELEVATED TEMPERATURE; Start 07/11/18 at 19:30 Potassium Chloride 50 ml @ 50 mls/hr SEE DIRECTION PRN IVPB K+ LEVEL Last administered on 07/12/18at 00:36; Admin Dose 50 MLS/HR; Start 07/11/18 at 19:30 Magnesium Sulfate/ Dextrose 100 ml @ 100 mls/hr PRN PRN IVPB PENDING LAB [facility]; Start 07/11/18 at 19:30 Ketorolac Tromethamine (Toradol) 30 mg Q6H PRN IV PAIN LEVEL 1-3; Start 07/11/18 at 19:30; Stop 07/14/18 at 19:29 Hydromorphone HCl (Dilaudid) 1 mg Q3H PRN IV SEVERE PAIN LEVEL 7-10 Last administered on 07/13/18at 08:19; Admin Dose 1 MG; Start 07/11/18 at 19:30 Enoxaparin Sodium (Lovenox) 40 mg DAILY SC Last administered on 07/13/18 09:09; Admin Dose 40 MG; Start 07/12/18 at 09:00 Nitroglycerin/ Dextrose 250 ml @ 1.5 mls/hr PER PROTOCOL IV Last administered on 07/11/18 20:09; Admin Dose 1.5 MLS/HR; Start 07/11/18 at 20:00 Dopamine HCl/ Dextrose 250 ml @ 7.365 mls/ hr PER PROTOCOL IV Last administered on 07/11/18 20:09; Admin Dose 4.04 MLS/HR; Start 07/11/18 at 20:00 Diagnostic Test (Pha) (Accu-Chek) 1 ea Q1H XX Last administered on 07/13/18 11:59; Admin Dose 1 EA; Start 07/11/18 at 21:00 Phenylephrine HCl 250 ml @ 75 mls/hr TITRATE IV Last administered on 07/12/18 02:51; Admin Dose 52 MLS/HR; Start 07/11/18 at 21:28 Famotidine (Pepcid) 20 mg BID PO Last administered on 07/13/18 09:11; Admin Dose 20 MG; Start 07/12/18 at 09:00 Aspirin (Aspirin) 81 mg DAILY PO ; Start 07/14/18 at 09:00 Metoprolol Tartrate (Lopressor) 50 mg BID PO ; Start 07/13/18 at 21:00 Atorvastatin Calcium (Lipitor) 40 mg HS PO ; Start 07/13/18 at 21:00 Diagnostic Test (Pha) (Accu-Chek) 1 ea 02 XX ; Start 07/14/18 at 02:00 Insulin Glargine (Lantus) 45 units DAILY@0800 SC ; Start 07/14/18 at 08:00 Insulin Aspart (Novolog Insulin Pen) 10 unit WITH MEALS SC Last administered on 07/13/18 11:59; Admin Dose 10 UNIT; Start 07/13/18 at 11:30 Insulin Aspart (Novolog Insulin Pen) NOVOLOG *MODERATE* ALGORITHM WITH MEALS BEDTIME SC Last administered on 07/13/18 11:59; Admin Dose 2 UNIT; Start 07/13/18 at 11:30 DRAKE LOUIS MD Jul 13, 2018 14:14
--- NOTE | 2018-07-13 15:12 | CONS ---
Assessment/Plan Assessment/Plan Hospital Course (Demo Recall) Impression: CAD, post op day #2 s/p CABG Hypertension Dyslipidemia Type 2 diabetes Recommendations: Post op care per Dr. Patterson Off drips and bp coming up, will restart home dose of lisinopril 2.5 mg and likely uptitrate for bp control Increase metoprolol to tid Continue asa, atorvastatin Consultation Date/Type/Reason Admit Date/Time Jul 10, 2018 at 10:01 Initial Consult Date 07/10/18 Type of Consult Cardiology Date/Time of Note DATE: 07/13/18 TIME: 15:08 24 HR Interval Summary Free Text/Dictation Mild pain in chest, able to walk today. Exam/Review of Systems Vital Signs Vitals Vital Signs Date Temp Pulse Resp B/P (MAP) Pulse Ox O2 O2 Flow FiO2 Time Delivery Rate 07/13/18 92 12:00 07/13/18 23 156/145 97 Nasal 2.0 09:00 (149) Cannula 07/13/18 98.4 08:00 07/13/18 27 01:29 Intake and Output 07/12/18 07/12/18 07/13/18 1515:00 23:00 07:00 IntakeIntake Total 618 ml 260.0 ml 178.5 ml OutputOutput Total 457 ml 367 ml 90 ml BalanceBalance 161 ml -107.0 ml 88.5 ml Exam Constitutional: alert, oriented, other (obese) Psych: no complaints, nl mood/affect Head: normocephalic, atraumatic Eyes: nl lids, nl sclera ENMT: nl external ears & nose Neck: No jvd, No bruits Respiratory: clear to auscultation (anteriorly), normal air movement Cardiovascular: regular rate and rhythm; No murmurs/extra sounds, No rub Gastrointestinal: soft, non-tender Musculoskeletal: nl extremities to inspection Extremities: edema (trace) Neurological: nl mental status, nl speech Skin: nl turgor Labs Result Diagram: 07/13/1851707/13/18517 Results 24hrs Laboratory Tests Test 07/12/18 17:04 07/12/18 19:04 07/12/18 19:47 07/12/18 21:28 Bedside Glucose 144 103 106 Hematocrit 29.7 L Test 07/12/18 23:05 07/13/18 01:29 07/13/18 04:09 07/13/18 05:18 Bedside Glucose 110 121 108 White Blood Count 17.7 H Red Blood Count 3.38 L Hemoglobin 10.1 L Hematocrit 29.8 L Mean Corpuscular 88.2 Volume Mean Corpuscular 29.9 Hemoglobin Mean Corpuscular 33.9 Hemoglobin Concent Red Cell 11.7 Distribution Width Platelet Count 200 # Mean Platelet Volume 9.6 Immature 0.400 Granulocytes % Neutrophils % 67.6 Lymphocytes % 20.2 Monocytes % 11.2 H Eosinophils % 0.3 Basophils % 0.3 Nucleated Red Blood 0.0 Cells % Immature 0.070 H Granulocytes # Neutrophils # 12.0 H Lymphocytes # 3.6 H Monocytes # 2.0 H Eosinophils # 0.1 Basophils # 0.1 Nucleated Red Blood 0.0 Cells # Prothrombin Time 14.3 Prothrombin Time 1.1 Ratio INR International 1.10 Normalized Ratio Activated 32.6 Partial Thromboplast Time Sodium Level 135 Potassium Level 4.4 Chloride Level 103 Carbon Dioxide Level 24 Anion Gap 8 Blood Urea Nitrogen 12 Creatinine 0.80 Est Glomerular > 60 Filtrat Rate mL/min Glucose Level 107 # Calcium Level 8.8 Magnesium Level 2.0 Test 07/13/18 05:44 07/13/18 07:02 07/13/18 09:08 07/13/18 11:05 Bedside Glucose 113 108 137 167 Test 07/13/18 11:56 Bedside Glucose 166 Medications Medications Current Medications Insulin Human Regular 100 unit/ Sodium Chloride 100 ml @ 0 mls/hr PER PROTOCOL IV Last administered on 07/12/18at 14:05; Admin Dose 7 MLS/HR; Start 07/11/18 at 19:30; Status Hold Miscellaneous Information (* Miscellaneous Pharmacy Order) Treatment of Hypoglycemia: 1.BG 51... Per protocol XX ; Start 07/11/18 at 19:30 Dextrose (D50w Syringe) 25 ml Q15M PRN IV .DECREASED GLUCOSE; Start 07/11/18 at 19:30 Dextrose (D50w Syringe) 50 ml Q15M PRN IV .DECREASED GLUCOSE; Start 07/11/18 at 19:30 Oxycodone/ Acetaminophen (Percocet (5/ 325)) 1 tab Q3H PRN PO PAIN LEVEL 1-5; Start 07/11/18 at 19:30 Oxycodone/ Acetaminophen (Percocet (5/ 325)) 2 tab Q3H PRN PO PAIN LEVEL 6-10 Last administered on 07/13/18 14:10; Admin Dose 2 TAB; Start 07/11/18 at 19:30 Ondansetron HCl (Zofran Inj) 4 mg Q6H PRN IV NAUSEA AND/OR VOMITING; Start 07/11/18 at 19:30 Acetaminophen (Tylenol Tab) 650 mg Q3H PRN PO ELEVATED TEMPERATURE; Start 07/11/18 at 19:30 Potassium Chloride 50 ml @ 50 mls/hr SEE DIRECTION PRN IVPB K+ LEVEL Last administered on 07/12/18 00:36; Admin Dose 50 MLS/HR; Start 07/11/18 at 19:30 Magnesium Sulfate/ Dextrose 100 ml @ 100 mls/hr PRN PRN IVPB PENDING LAB VALUE; Start 07/11/18 at 19:30 Ketorolac Tromethamine (Toradol) 30 mg Q6H PRN IV PAIN LEVEL 1-3; Start 07/11/18 at 19:30; Stop 07/14/18 at 19:29 Hydromorphone HCl (Dilaudid) 1 mg Q3H PRN IV SEVERE PAIN LEVEL 7-10 Last administered on 07/13/18 08:19; Admin Dose 1 MG; Start 07/11/18 at 19:30 Enoxaparin Sodium (Lovenox) 40 mg DAILY SC Last administered on 07/13/18 09:09; Admin Dose 40 MG; Start 07/12/18 at 09:00 Nitroglycerin/ Dextrose 250 ml @ 1.5 mls/hr PER PROTOCOL IV Last administered on 07/11/18 20:09; Admin Dose 1.5 MLS/HR; Start 07/11/18 at 20:00 Dopamine HCl/ Dextrose 250 ml @ 7.365 mls/ hr PER PROTOCOL IV Last administered on 07/11/18 20:09; Admin Dose 4.04 MLS/HR; Start 07/11/18 at 20:00 Diagnostic Test (Pha) (Accu-Chek) 1 ea Q1H XX Last administered on 07/13/18 11:59; Admin Dose 1 EA; Start 07/11/18 at 21:00 Phenylephrine HCl 250 ml @ 75 mls/hr TITRATE IV Last administered on 4/19/19at 02:51; Admin Dose 52 MLS/HR; Start 07/11/18 at 21:28 Famotidine (Pepcid) 20 mg BID PO Last administered on 07/13/18at 09:11; Admin Dose 20 MG; Start 07/12/18 at 09:00 Aspirin (Aspirin) 81 mg DAILY PO ; Start 07/14/18 at 09:00 Metoprolol Tartrate (Lopressor) 50 mg BID PO ; Start 07/13/18 at 21:00 Atorvastatin Calcium (Lipitor) 40 mg HS PO ; Start 07/13/18 at 21:00 Diagnostic Test (Pha) (Accu-Chek) 1 ea 02 XX ; Start 07/14/18 at 02:00 Insulin Glargine (Lantus) 45 units DAILY@0800 SC ; Start 07/14/18 at 08:00 Insulin Aspart (Novolog Insulin Pen) 10 unit WITH MEALS SC Last administered on 07/13/18at 11:59; Admin Dose 10 UNIT; Start 07/13/18 at 11:30 Insulin Aspart (Novolog Insulin Pen) NOVOLOG *MODERATE* ALGORITHM WITH MEALS BEDTIME SC Last administered on 07/13/18at 11:59; Admin Dose 2 UNIT; Start 07/13/18 at 11:30 Lisinopril (Zestril) 2.5 mg DAILY PO ; Start 07/13/18 at 15:30; Status ASHLEY CLARKE Jul 13, 2018 15:12
[2018-07-13] MEDS: LISINOPRIL 5 MG TAB PO SCH (16:18)
[2018-07-13] MEDS: ATORVASTATIN 40 MG TAB PO SCH (20:41)
[2018-07-13] MEDS: METOPROLOL 50 MG TAB PO SCH (20:42)
[2018-07-13] MEDS: KETOROLAC 30 MG INJ IV PRN (20:43)
[2018-07-13] MEDS ORDERED: METOPROLOL 50 MG TAB PO SCH (21:00)
[2018-07-13] MEDS ORDERED: SOD CHLORIDE 0.9% 500 ML IV ONE (23:00)
[2018-07-14] VITALS (38 sets, daily range): BP systolic 82–102; BP diastolic 49–76; PULSE 75–98; RESP 14–22
[2018-07-14] MEDS: ACCU-CHEK XX SCH ×3 (01:00→02:00)
[2018-07-14] MEDS: OXYCODONE/ACETAMINOPHEN (5/325) TAB PO PRN ×4 (04:07→21:28)
[2018-07-14] MEDS: KETOROLAC 30 MG INJ IV PRN ×2 (05:05→13:55)
[2018-07-14] MEDS: INSULIN GLARGINE [LANTus] (100 UNITS/ML) SYG SC SCH (08:08)
[2018-07-14] MEDS: INSULIN ASPART [NOVOLOG] 3 ML PEN SC SCH ×7 (08:10→22:52)
[2018-07-14] MEDS: FAMOTIDINE 20 MG TAB PO SCH ×2 (09:36→20:45)
[2018-07-14] MEDS: LISINOPRIL 5 MG TAB PO SCH (09:37)
[2018-07-14] MEDS: METOPROLOL 50 MG TAB PO SCH ×3 (09:37→21:00)
[2018-07-14] MEDS: ENOXAPARIN 40 MG/0.4 ML SYG SC SCH (09:48)
[2018-07-14] MEDS: ASPIRIN 81 MG TAB PO SCH (09:50)
[2018-07-14] MEDS: HYDROmorphONE 1 MG/ML SYG IV PRN (11:16)
--- NOTE | 2018-07-14 11:26 | PN ---
Date/Time of Note Date/Time of Note DATE: 07/14/18 TIME: 11:25 Assessment/Plan Lines/Catheters IV Catheter Type (from Nrsg): Peripheral IV Olivares in Place (from Nrsg): No Assessment/Plan Assessment/Plan s/p cabg d/c tubes telemetry Subjective 24 Hr Interval Summary Constitutional: improved, ambulates Feeding: baseline diet Pain Control: well controlled Exam/Review of Systems Vital Signs Vitals Vital Signs Date Temp Pulse Resp B/P (MAP) Pulse Ox O2 O2 Flow FiO2 Time Delivery Rate 07/14/18 90 22 97/52 (67) 100 Nasal 2.0 10:00 Cannula 07/14/18 98.5 08:00 07/13/18 27 01:29 Intake and Output 07/13/18 07/13/18 07/14/18 1414:59 22:59 06:59 IntakeIntake Total 729.0 ml 2240 ml 270 ml OutputOutput Total 570 ml 0 ml BalanceBalance 159.0 ml 2240 ml 270 ml Exam Constitutional: alert Psych: no complaints Head: atraumatic Eyes: EOMI ENMT: nl lips & teeth Neck: supple Respiratory: other (2 liters n/c) Cardiovascular: regular rate and rhythm Musculoskeletal: nl extremities to inspection Neurological: FOOD AND BEVERAGE CONTROLLER II-XII intact Results Result Diagram: 07/14/1844907/14/18449 KARRI FIGUEROA MD Jul 14, 2018 11:26
--- NOTE | 2018-07-14 13:48 | PN ---
Date/Time of Note Date/Time of Note DATE: 07/14/18 TIME: 13:45 Assessment/Plan VTE Prophylaxis Risk score (from Ns)>0 risk: 11 [place] [facility] [place]CD contraindicated: other (no) Pharmacological prophylaxis: LMWH Lines/Catheters IV Catheter Type (from [facility]): Peripheral IV Urinary Cath still in place: No Assessment/Plan Assessment/Plan 53 yo obese man with HTN, IDDM, severe CAD who presents with 3-vessel CAD #CAD - Cardiac cath 07/10 shows severe stenosis of the L main, circumflex, LAD, and RCA. - Dr. Patterson, Dr. Luu following. Previously saw Saleem in clinic. - s/p CABG x4 on 07/11. - Cardiology/CT surgery to manage antiplatelet and anticoagulation postoperatively. - Now on room air, drains out. Plan to transfer to tele today. #IDDM - Resume long-acting insulin, mealtime aspart, and sliding scale. - Blood sugar goal 120-180 in hospital on current regimen. #HTN - BB and ACEi resumed, BP well controlled. #GERD - Continue H2 anthony #BPH - Cont tamsulosin DVT: SCDs GI: H2 anthony Result Diagram: 07/14/18 0450 07/14/18 0450 Subjective 24 Hr Interval Summary Free Text/Dictation Today patient ambulating around the unit with assistance. Doing well. Exam/Review of Systems Exam Vitals Vital Signs Date Temp Pulse Resp B/P (MAP) Pulse Ox O2 O2 Flow FiO2 Time Delivery Rate 07/14/18 77 18 99/52 (68) 95 13:30 07/14/18 Nasal 2.0 13:00 Cannula 07/14/18 98.4 12:00 07/13/18 27 01:29 Intake and Output 07/13/18 07/13/18 07/14/18 1515:00 23:00 07:00 IntakeIntake Total 726.0 ml 2330 ml 180 ml OutputOutput Total 570 ml 0 ml BalanceBalance 156.0 ml 2330 ml 180 ml Exam Gen: Obese man ambulating around the unit with assistance. Eyes: PERRL, no icterus HEENT: Moist mucous membranes, clear oropharynx Neck: Supple, no lymphadenopathy, no JVD Card: Regular rate and rhythm, no murmurs Chest: Midline sternotomy with dressing. Pulm: Diminished lung expansion bilaterally with reduced breath sounds throughout. On room air. Abd: Obese, nondistended. Ext: No LE edema. Results Results 24hrs Laboratory Tests Test 07/13/18 17:29 07/13/18 20:40 07/14/18 04:50 07/14/18 08:06 Bedside Glucose 146 160 149 White Blood Count 11.8 #H Red Blood Count 2.73 L Hemoglobin 8.3 L Hematocrit 24.2 L Mean Corpuscular 88.6 Volume Mean Corpuscular 30.4 Hemoglobin Mean Corpuscular 34.3 Hemoglobin Concent Red Cell 11.8 Distribution Width Platelet Count 167 Mean Platelet Volume 9.6 Immature 0.500 H Granulocytes % Neutrophils % 63.7 Lymphocytes % 23.1 Monocytes % 11.1 H Eosinophils % 1.3 Basophils % 0.3 Nucleated Red Blood 0.0 Cells % Immature 0.060 H Granulocytes # Neutrophils # 7.5 Lymphocytes # 2.7 Monocytes # 1.3 H Eosinophils # 0.2 Basophils # 0.0 Nucleated Red Blood 0.0 Cells # Sodium Level 132 L Potassium Level 4.5 Chloride Level 100 Carbon Dioxide Level 25 Anion Gap 7 Blood Urea Nitrogen 19 Creatinine 1.33 H Est Glomerular 57 L Filtrat Rate mL/min Glucose Level 147 # Calcium Level 8.6 Magnesium Level 2.1 Test 07/14/18 12:01 Bedside Glucose 143 Medications Medication Current Medications Insulin Human Regular 100 unit/ Sodium Chloride 100 ml @ 0 mls/hr PER PROTOCOL IV Last administered on 07/12/18at 14:05; Admin Dose 7 MLS/HR; Start 07/11/18 at 19:30; Status Hold Miscellaneous Information (* Miscellaneous Pharmacy Order) Treatment of Hypoglycemia: 1.BG 51... Per protocol XX ; Start 07/11/18 at 19:30 Dextrose (D50w Syringe) 25 ml Q15M PRN IV .DECREASED GLUCOSE; Start 07/11/18 at 19:30 Dextrose (D50w Syringe) 50 ml Q15M PRN IV .DECREASED GLUCOSE; Start 07/11/18 at 19:30 Oxycodone/ Acetaminophen (Percocet (5/ 325)) 1 tab Q3H PRN PO PAIN LEVEL 1-5 Last administered on 07/14/18at 09:36; Admin Dose 1 TAB; Start 07/11/18 at 19:30 Oxycodone/ Acetaminophen (Percocet (5/ 325)) 2 tab Q3H PRN PO PAIN LEVEL 6-10 Last administered on 07/13/18at 18:01; Admin Dose 2 TAB; Start 07/11/18 at 19:30 Ondansetron HCl (Zofran Inj) 4 mg Q6H PRN IV NAUSEA AND/OR VOMITING; Start 07/11/18 at 19:30 Acetaminophen (Tylenol Tab) 650 mg Q3H PRN PO ELEVATED TEMPERATURE; Start at 19:30 Potassium Chloride 50 ml @ 50 mls/hr SEE DIRECTION PRN IVPB K+ LEVEL Last administered on 07/12/18 00:36; Admin Dose 50 MLS/HR; Start 07/11/18 at 19:30 Magnesium Sulfate/ Dextrose 100 ml @ 100 mls/hr PRN PRN IVPB PENDING LAB VALUE; Start 07/11/18 at 19:30 Ketorolac Tromethamine (Toradol) 30 mg Q6H PRN IV PAIN LEVEL 1-3 Last administered on 07/14/18 05:05; Admin Dose 30 MG; Start 07/11/18 at 19:30; Stop 07/14/18 at 19:29 Hydromorphone HCl (Dilaudid) 1 mg Q3H PRN IV SEVERE PAIN LEVEL 7-10 Last administered on 07/14/18 11:16; Admin Dose 1 MG; Start 07/11/18 at 19:30 Enoxaparin Sodium (Lovenox) 40 mg DAILY SC Last administered on 07/14/18 09:48; Admin Dose 40 MG; Start 07/12/18 at 09:00 Nitroglycerin/ Dextrose 250 ml @ 1.5 mls/hr PER PROTOCOL IV Last administered on 07/11/18 20:09; Admin Dose 1.5 MLS/HR; Start 07/11/18 at 20:00 Dopamine HCl/ Dextrose 250 ml @ 7.365 mls/ hr PER PROTOCOL IV Last administered on 07/11/18 20:09; Admin Dose 4.04 MLS/HR; Start 07/11/18 at 20:00 Phenylephrine HCl 250 ml @ 75 mls/hr TITRATE IV Last administered on 07/12/18at 02:51; Admin Dose 52 MLS/HR; Start 07/11/18 at 21:28 Famotidine (Pepcid) 20 mg BID PO Last administered on 07/14/18 09:36; Admin Dose 20 MG; Start 07/12/18 at 09:00 Aspirin (Aspirin) 81 mg DAILY PO Last administered on 07/14/18 09:50; Admin Dose 81 MG; Start 07/14/18 at 09:00 Atorvastatin Calcium (Lipitor) 40 mg HS PO Last administered on 07/13/18 20:41; Admin Dose 40 MG; Start 07/13/18 at 21:00 Diagnostic Test (Pha) (Accu-Chek) 1 ea XX ; Start 07/14/18 at 02:00 Insulin Glargine (Lantus) 45 units DAILY@0800 SC Last administered on 07/14/18 08:08; Admin Dose 45 UNITS; Start 07/14/18 at 08:00 Insulin Aspart (Novolog Insulin Pen) 10 unit WITH MEALS SC Last administered on 07/14/18 12:04; Admin Dose 10 UNIT; Start 07/13/18 at 11:30 Insulin Aspart (Novolog Insulin Pen) NOVOLOG *MODERATE* ALGORITHM WITH MEALS BEDTIME SC Last administered on 07/14/18 12:04; Admin Dose 2 UNIT; Start 07/13/18 at 11:30 Lisinopril (Zestril) 2.5 mg DAILY PO Last administered on 07/14/18 09:37; Admin Dose 2.5 MG; Start 07/13/18 at 15:30 Metoprolol Tartrate (Lopressor) 50 mg TID PO Last administered on 07/14/18 09:37; Admin Dose 50 MG; Start 07/13/18 at 21:00 DRAKE LOUIS MD Jul 14, 2018 13:48
--- NOTE | 2018-07-14 17:22 | CONS ---
Assessment/Plan Assessment/Plan Hospital Course (Demo Recall) Impression: CAD, post op day #2 s/p CABG Relative hypotension, with history of hypertension Anemia due to blood loss Acute renal insufficiency, cr went from 0.8 to 1.3 Dyslipidemia Type 2 diabetes Recommendations: Will give a liter of 0.9 NS Post op care per Dr. Patterson Observe bp, continue metoprolol, stop lisinopril Continue asa, atorvastatin Consultation Date/Type/Reason Admit Date/Time Jul 10, 2018 at 10:01 Initial Consult Date 07/10/18 Type of Consult Cardiology Date/Time of Note DATE: 07/14/18 TIME: :20 24 HR Interval Summary Free Text/Dictation Sitting up, discomfort with taking deep breaths, appetite not good Exam/Review of Systems Vital Signs Vitals Vital Signs Date Temp Pulse Resp B/P (MAP) Pulse Ox O2 O2 Flow FiO2 Time Delivery Rate 07/14/18 75 16:00 07/14/18 15 83/50 (61) 98 15:30 07/14/18 Nasal 2.0 15:00 Cannula 07/14/18 98.4 12:00 07/13/18 27 01:29 Intake and Output 07/13/18 07/13/18 07/14/18 1515:00 23:00 07:00 IntakeIntake Total 726.0 ml 2330 ml 180 ml OutputOutput Total 570 ml 0 ml BalanceBalance 156.0 ml 2330 ml 180 ml Exam Constitutional: alert, oriented, other (obese) Psych: no complaints, nl mood/affect Head: normocephalic, atraumatic Eyes: nl lids ENMT: nl external ears & nose Neck: No bruits Respiratory: clear to auscultation, other (fair inspiratory effort) Cardiovascular: regular rate and rhythm; No murmurs/extra sounds, No rub Gastrointestinal: soft, non-tender Musculoskeletal: nl extremities to inspection Extremities: No edema Neurological: nl mental status, nl speech Skin: nl turgor Labs Result Diagram: 07/14/18 0450 07/14/18 0450 Results 24hrs Laboratory Tests Test 07/13/18 17:29 07/13/18 20:40 07/14/18 04:50 07/14/18 08:06 Bedside Glucose 146 160 149 White Blood Count 11.8 #H Red Blood Count 2.73 L Hemoglobin 8.3 L Hematocrit 24.2 L Mean Corpuscular 88.6 Volume Mean Corpuscular 30.4 Hemoglobin Mean Corpuscular 34.3 Hemoglobin Concent Red Cell 11.8 Distribution Width Platelet Count 167 Mean Platelet Volume 9.6 Immature 0.500 H Granulocytes % Neutrophils % 63.7 Lymphocytes % 23.1 Monocytes % 11.1 H Eosinophils % 1.3 Basophils % 0.3 Nucleated Red Blood 0.0 Cells % Immature 0.060 H Granulocytes # Neutrophils # 7.5 Lymphocytes # 2.7 Monocytes # 1.3 H Eosinophils # 0.2 Basophils # 0.0 Nucleated Red Blood 0.0 Cells # Sodium Level 132 L Potassium Level 4.5 Chloride Level 100 Carbon Dioxide Level 25 Anion Gap 7 Blood Urea Nitrogen 19 Creatinine 1.33 H Est Glomerular 57 L Filtrat Rate mL/min Glucose Level 147 # Calcium Level 8.6 Magnesium Level 2.1 Test 07/14/18 12:01 Bedside Glucose 143 Medications Medications Current Medications Insulin Human Regular 100 unit/ Sodium Chloride 100 ml @ 0 mls/hr PER PROTOCOL IV Last administered on 07/12/18at 14:05; Admin Dose 7 MLS/HR; Start 07/11/18 at 19:30; Status Hold Miscellaneous Information (* Miscellaneous Pharmacy Order) Treatment of Hypoglycemia: 1.BG 51... Per protocol XX ; Start 07/11/18 at 19:30 Dextrose (D50w Syringe) 25 ml Q15M PRN IV .DECREASED GLUCOSE; Start 07/11/18 at 19:30 Dextrose (D50w Syringe) 50 ml Q15M PRN IV .DECREASED GLUCOSE; Start 07/11/18 at 19:30 Oxycodone/ Acetaminophen (Percocet (5/ 325)) 1 tab Q3H PRN PO PAIN LEVEL 1-5 Last administered on 07/14/18at 09:36; Admin Dose 1 TAB; Start 07/11/18 at 19:30 Oxycodone/ Acetaminophen (Percocet (5/ 325)) 2 tab Q3H PRN PO PAIN LEVEL 6-10 Last administered on 07/13/18at 18:01; Admin Dose 2 TAB; Start 07/11/18 at 19:30 Ondansetron HCl (Zofran Inj) 4 mg Q6H PRN IV NAUSEA AND/OR VOMITING Last administered on 07/14/18at 13:55; Admin Dose 4 MG; Start 07/11/18 at 19:30 Acetaminophen (Tylenol Tab) 650 mg Q3H PRN PO ELEVATED TEMPERATURE; Start 07/11/18 at 19:30 Potassium Chloride 50 ml @ 50 mls/hr SEE DIRECTION PRN IVPB K+ LEVEL Last administered on 07/12/18 00:36; Admin Dose 50 MLS/HR; Start 07/11/18 at 19:30 Magnesium Sulfate/ Dextrose 100 ml @ 100 mls/hr PRN PRN IVPB PENDING LAB VALUE; Start 07/11/18 at 19:30 Ketorolac Tromethamine (Toradol) 30 mg Q6H PRN IV PAIN LEVEL 1-3 Last administered on 07/14/18 13:55; Admin Dose 30 MG; Start 07/11/18 at 19:30; Stop 07/14/18 at 19:29 Hydromorphone HCl (Dilaudid) 1 mg Q3H PRN IV SEVERE PAIN LEVEL 7-10 Last administered on 07/14/18 11:16; Admin Dose 1 MG; Start 07/11/18 at 19:30 Enoxaparin Sodium (Lovenox) 40 mg DAILY SC Last administered on 07/14/18 09:48; Admin Dose 40 MG; Start 07/12/18 at 09:00 Nitroglycerin/ Dextrose 250 ml @ 1.5 mls/hr PER PROTOCOL IV Last administered on 07/11/18 20:09; Admin Dose 1.5 MLS/HR; Start 07/11/18 at 20:00 Dopamine HCl/ Dextrose 250 ml @ 7.365 mls/ hr PER PROTOCOL IV Last administered on 07/11/18 20:09; Admin Dose 4.04 MLS/HR; Start 07/11/18 at 20:00 Phenylephrine HCl 250 ml @ 75 mls/hr TITRATE IV Last administered on 07/12/18 02:51; Admin Dose 52 MLS/HR; Start 07/11/18 at 21:28 Famotidine (Pepcid) 20 mg BID PO Last administered on 07/14/18 09:36; Admin Dose 20 MG; Start 07/12/18 at 09:00 Aspirin (Aspirin) 81 mg DAILY PO Last administered on 07/14/18 09:50; Admin Dose 81 MG; Start 07/14/18 at 09:00 Atorvastatin Calcium (Lipitor) 40 mg HS PO Last administered on 07/13/18at 20:41; Admin Dose 40 MG; Start 07/13/18 at 21:00 Diagnostic Test (Pha) (Accu-Chek) 1 ea 02 XX ; Start 07/14/18 at 02:00 Insulin Glargine (Lantus) 45 units DAILY@0800 SC Last administered on 07/14/18at 08:08; Admin Dose 45 UNITS; Start 07/14/18 at 08:00 Insulin Aspart (Novolog Insulin Pen) 10 unit WITH MEALS SC Last administered on 07/14/18 12:04; Admin Dose 10 UNIT; Start 07/13/18 at 11:30 Insulin Aspart (Novolog Insulin Pen) NOVOLOG *MODERATE* ALGORITHM WITH MEALS BEDTIME SC Last administered on 07/14/18at 12:04; Admin Dose 2 UNIT; Start 07/13/18 at 11:30 Lisinopril (Zestril) 2.5 mg DAILY PO Last administered on 07/14/18 09:37; Admin Dose 2.5 MG; Start 07/13/18 at 15:30 Metoprolol Tartrate (Lopressor) 50 mg TID PO Last administered on 07/14/18 09 :37; Admin Dose 50 MG; Start 07/13/18 at 21:00 ASHLEY GONZALEZ Jul 14, 2018 17:22
[2018-07-14] MEDS: SOD CHLORIDE 0.9% 1,000 ML IV SCH (18:11)
[2018-07-14] MEDS: ATORVASTATIN 40 MG TAB PO SCH (20:45)
[2018-07-15] VITALS (12 sets, daily range): BP systolic 104–128; BP diastolic 56–73; PULSE 60–102; RESP 20
[2018-07-15] MEDS: ACCU-CHEK XX SCH (02:00)
[2018-07-15] MEDS: SOD CHLORIDE 0.9% 1,000 ML IV SCH (02:42)
[2018-07-15] MEDS: OXYCODONE/ACETAMINOPHEN (5/325) TAB PO PRN ×2 (02:42→14:41)
[2018-07-15] MEDS: INSULIN ASPART [NOVOLOG] 3 ML PEN SC SCH ×7 (07:35→21:40)
[2018-07-15] MEDS: ASPIRIN 81 MG TAB PO SCH (07:51)
[2018-07-15] MEDS: FAMOTIDINE 20 MG TAB PO SCH ×2 (07:51→20:21)
[2018-07-15] MEDS: METOPROLOL 50 MG TAB PO SCH ×3 (07:51→20:21)
[2018-07-15] MEDS: ENOXAPARIN 40 MG/0.4 ML SYG SC SCH (07:53)
[2018-07-15] MEDS: INSULIN GLARGINE [LANTus] (100 UNITS/ML) SYG SC SCH (07:54)
[2018-07-15] MEDS: HYDROmorphONE 1 MG/ML SYG IV PRN ×2 (09:27→23:29)
--- NOTE | 2018-07-15 10:54 | PN ---
Date/Time of Note Date/Time of Note DATE: 07/15/18 TIME: 10:47 Assessment/Plan VTE Prophylaxis Risk score (from Ns)>0 risk: 6 SCD applied (from Ns): No SCD contraindicated: other Pharmacological prophylaxis: LMWH Lines/Catheters IV Catheter Type (from Nrs): Peripheral IV Urinary Cath still in place: No Assessment/Plan Hospital Course S: Patient had no acute events overnight, chest tube taken out yesterday. O: VS - see below PE: Gen: Obese man lying in bed, no acute distress Eyes: PERRL, no icterus HEENT: Moist mucous membranes, clear oropharynx Neck: Supple, no lymphadenopathy, no JVD Card: Regular rate and rhythm, no murmurs Chest: Midline sternotomy with dressing. Pulm: Less diminished lung expansion bilaterally with less reduced breath sounds throughout. On room air. Abd: Obese, nondistended. Ext: No LE edema. Assessment/Plan: 53 yo obese man with HTN, IDDM, severe CAD who presents with 3- vessel CAD #CAD- Cardiac cath 07/10 shows severe stenosis of the L main, circumflex, LAD, and RCA- s/p CABG x4 on 07/11. Dr. Patterson, Dr. Luu following (Previously saw Saleem in clinic). Now on room air, drains out. -Monitor, continue PT, cardiology/CT surgery to manage antiplatelet and anticoagulation postoperatively. -Continue aspirin, beta-anthony, statin #IDDM: A1c was 7.4. Sugars are stable -Continue long-acting insulin, mealtime aspart, and sliding scale. #HTN: Stable -Continue BB, monitor #GERD - Continue H2 anthony #BPH - Cont tamsulosin GI: H2 anthony Result Diagram: 07/15/18 0609 07/15/18 0609 Results 24hrs Laboratory Tests Test 07/14/18 12:01 07/14/18 17:30 07/14/18 20:44 07/14/18 22:50 Bedside Glucose 143 100 146 160 Test 07/15/18 06:09 07/15/18 07:35 White Blood Count 11.1 H Red Blood Count 2.83 L Hemoglobin 8.6 L Hematocrit 25.2 L Mean Corpuscular 89.0 Volume Mean Corpuscular 30.4 Hemoglobin Mean Corpuscular 34.1 Hemoglobin Concent Red Cell 11.8 Distribution Width Platelet Count 209 # Mean Platelet Volume 10.2 Immature 0.500 H Granulocytes % Neutrophils % 61.0 Lymphocytes % 23.5 Monocytes % 11.3 H Eosinophils % 3.4 Basophils % 0.3 Nucleated Red Blood 0.0 Cells % Immature 0.060 H Granulocytes # Neutrophils # 6.8 Lymphocytes # 2.6 Monocytes # 1.3 H Eosinophils # 0.4 Basophils # 0.0 Nucleated Red Blood 0.0 Cells # Sodium Level 134 L Potassium Level 4.6 Chloride Level 99 Carbon Dioxide Level 25 Anion Gap 10 Blood Urea Nitrogen 21 H Creatinine 1.01 Est Glomerular > 60 Filtrat Rate mL/min Glucose Level 135 Calcium Level 8.2 L Phosphorus Level 4.2 Magnesium Level 2.5 Bedside Glucose 139 Exam/Review of Systems Exam Vitals Vital Signs Date Temp Pulse Resp B/P (MAP) Pulse Ox O2 O2 Flow FiO2 Time Delivery Rate 07/15/18 102 09:25 07/15/18 Nasal 2.0 08:00 Cannula 07/15/18 98.9 20 124/70 90 07:17 (88) 07/13/18 27 01:29 Intake and Output 07/14/18 07/14/18 07/15/18 1515:00 23:00 07:00 IntakeIntake Total 1050 ml 400 ml 2250 ml OutputOutput Total 195 ml 200 ml 1850 ml BalanceBalance 855 ml 200 ml 400 ml Results Results 24hrs Laboratory Tests Test 07/14/18 12:01 07/14/18 17:30 07/14/18 20:44 07/14/18 22:50 Bedside Glucose 143 100 146 160 Test 07/15/18 06:09 07/15/18 07:35 White Blood Count 11.1 H Red Blood Count 2.83 L Hemoglobin 8.6 L Hematocrit 25.2 L Mean Corpuscular 89.0 Volume Mean Corpuscular 30.4 Hemoglobin Mean Corpuscular 34.1 Hemoglobin Concent Red Cell 11.8 Distribution Width Platelet Count 209 # Mean Platelet Volume 10.2 Immature 0.500 H Granulocytes % Neutrophils % 61.0 Lymphocytes % 23.5 Monocytes % 11.3 H Eosinophils % 3.4 Basophils % 0.3 Nucleated Red Blood 0.0 Cells % Immature 0.060 H Granulocytes # Neutrophils # 6.8 Lymphocytes # 2.6 Monocytes # 1.3 H Eosinophils # 0.4 Basophils # 0.0 Nucleated Red Blood 0.0 Cells # Sodium Level 134 L Potassium Level 4.6 Chloride Level 99 Carbon Dioxide Level 25 Anion Gap 10 Blood Urea Nitrogen 21 H Creatinine 1.01 Est Glomerular > 60 Filtrat Rate mL/min Glucose Level 135 Calcium Level 8.2 L Phosphorus Level 4.2 Magnesium Level 2.5 Bedside Glucose 139 Medications Medication Current Medications Insulin Human Regular 100 unit/ Sodium Chloride 100 ml @ 0 mls/hr PER PROTOCOL IV Last administered on 07/12/18at 14:05; Admin Dose 7 MLS/HR; Start 07/11/18 at 19:30; Status Hold Miscellaneous Information (* Miscellaneous Pharmacy Order) Treatment of Hypoglycemia: 1.BG 51... Per protocol XX ; Start 07/11/18 at 19:30 Dextrose (D50w Syringe) 25 ml Q15M PRN IV .DECREASED GLUCOSE; Start 07/11/18 at 19:30 Dextrose (D50w Syringe) 50 ml Q15M PRN IV .DECREASED GLUCOSE; Start 07/11/18 at 19:30 Oxycodone/ Acetaminophen (Percocet (5/ 325)) 1 tab Q3H PRN PO PAIN LEVEL 1-5 Last administered on 07/14/18at 09:36; Admin Dose 1 TAB; Start 07/11/18 at 19:30 Oxycodone/ Acetaminophen (Percocet (5/ 325)) 2 tab Q3H PRN PO PAIN LEVEL 6-10 Last administered on 07/15/18at 02:42; Admin Dose 2 TAB; Start 07/11/18 at 19:30 Ondansetron HCl (Zofran Inj) 4 mg Q6H PRN IV NAUSEA AND/OR VOMITING Last administered on 07/14/18at 13:55; Admin Dose 4 MG; Start 07/11/18 at 19:30 Acetaminophen (Tylenol Tab) 650 mg Q3H PRN PO ELEVATED TEMPERATURE; Start 07/11/18 at 19:30 Potassium Chloride 50 ml @ 50 mls/hr SEE DIRECTION PRN IVPB K+ LEVEL Last administered on 07/12/18at 00:36; Admin Dose 50 MLS/HR; Start 07/11/18 at 19:30 Magnesium Sulfate/ Dextrose 100 ml @ 100 mls/hr PRN PRN IVPB PENDING LAB VALUE; Start 07/11/18 at 19:30 Hydromorphone HCl (Dilaudid) 1 mg Q3H PRN IV SEVERE PAIN LEVEL 7-10 Last administered on 07/15/18 09:27; Admin Dose 1 MG; Start 07/11/18 at 19:30 Enoxaparin Sodium (Lovenox) 40 mg DAILY SC Last administered on 07/15/18 07:53; Admin Dose 40 MG; Start 07/12/18 at 09:00 Nitroglycerin/ Dextrose 250 ml @ 1.5 mls/hr PER PROTOCOL IV Last administered on 07/11/18 20:09; Admin Dose 1.5 MLS/HR; Start 07/11/18 at 20:00 Dopamine HCl/ Dextrose 250 ml @ 7.365 mls/ hr PER PROTOCOL IV Last administered on 07/11/18 20:09; Admin Dose 4.04 MLS/HR; Start 07/11/18 at 20:00 Phenylephrine HCl 250 ml @ 75 mls/hr TITRATE IV Last administered on 07/12/18 02:51; Admin Dose 52 MLS/HR; Start 07/11/18 at 21:28 Famotidine (Pepcid) 20 mg BID PO Last administered on 07/15/18 07:51; Admin Dose 20 MG; Start 07/12/18 at 09:00 Aspirin (Aspirin) 81 mg DAILY PO Last administered on 07/15/18 07:51; Admin Dose 81 MG; Start 07/14/18 at 09:00 Atorvastatin Calcium (Lipitor) 40 mg HS PO Last administered on 07/14/18 20:45; Admin Dose 40 MG; Start 07/13/18 at 21:00 Diagnostic Test (Pha) (Accu-Chek) 1 ea 02 XX ; Start 07/14/18 at 02:00 Insulin Glargine (Lantus) 45 units DAILY@0800 SC Last administered on 07/15/18 07:54; Admin Dose 45 UNITS; Start 07/14/18 at 08:00 Insulin Aspart (Novolog Insulin Pen) 10 unit WITH MEALS SC Last administered on 07/15/18 07:54; Admin Dose 10 UNIT; Start 07/13/18 at 11:30 Insulin Aspart (Novolog Insulin Pen) NOVOLOG *MODERATE* ALGORITHM WITH MEALS BEDTIME SC Last administered on 07/14/18 12:04; Admin Dose 2 UNIT; Start 07/13/18 at 11:30 Metoprolol Tartrate (Lopressor) 50 mg TID PO Last administered on 07/15/18at 07:51; Admin Dose 50 MG; Start 07/13/18 at 21:00 Sodium Chloride 1,000 ml @ 100 mls/hr Q10H IV Last administered on 07/15/18at 02:42; Admin Dose 100 MLS/HR; Start 07/14/18 at 17:30 DIMITRI APPLE Jul 15, 2018 10:54
--- NOTE | 2018-07-15 12:33 | PN ---
Date/Time of Note Date/Time of Note DATE: 07/15/18 TIME: 12:30 Assessment/Plan VTE Prophylaxis Risk score (from Ns)>0 risk: 6 SCD applied (from Ns): Yes Pharmacological prophylaxis: LMWH Lines/Catheters IV Catheter Type (from Nrs): Peripheral IV Urinary Cath still in place: No Assessment/Plan Hospital Course Feels well. PO#4. Now on RA. No sign infection. Renal function OK. A mbulating. crit 25. Good progress. Probable home tomorrow. Result Diagram: 07/15/18 0609 07/15/18 0609 Results 24hrs Laboratory Tests Test 07/14/18 17:30 07/14/18 20:44 07/14/18 22:50 07/15/18 06:09 Bedside Glucose 100 146 160 White Blood Count 11.1 H Red Blood Count 2.83 L Hemoglobin 8.6 L Hematocrit 25.2 L Mean Corpuscular 89.0 Volume Mean Corpuscular 30.4 Hemoglobin Mean Corpuscular 34.1 Hemoglobin Concent Red Cell 11.8 Distribution Width Platelet Count 209 # Mean Platelet Volume 10.2 Immature 0.500 H Granulocytes % Neutrophils % 61.0 Lymphocytes % 23.5 Monocytes % 11.3 H Eosinophils % 3.4 Basophils % 0.3 Nucleated Red Blood 0.0 Cells % Immature 0.060 H Granulocytes # Neutrophils # 6.8 Lymphocytes # 2.6 Monocytes # 1.3 H Eosinophils # 0.4 Basophils # 0.0 Nucleated Red Blood 0.0 Cells # Sodium Level 134 L Potassium Level 4.6 Chloride Level 99 Carbon Dioxide Level 25 Anion Gap 10 Blood Urea Nitrogen 21 H Creatinine 1.01 Est Glomerular > 60 Filtrat Rate mL/min Glucose Level 135 Calcium Level 8.2 L Phosphorus Level 4.2 Magnesium Level 2.5 Test 07/15/18 07:35 07/15/18 11:43 Bedside Glucose 139 124 Exam/Review of Systems Exam Vitals Vital Signs Date Temp Pulse Resp B/P (MAP) Pulse Ox O2 O2 Flow FiO2 Time Delivery Rate 07/15/18 98.1 84 20 121/62 91 11:33 (81) 07/15/18 Nasal 2.0 08:00 Cannula 07/13/18 27 01:29 Intake and Output 07/14/18 07/14/18 07/15/18 1515:00 23:00 07:00 IntakeIntake Total 1050 ml 400 ml 2250 ml OutputOutput Total 195 ml 200 ml 1850 ml BalanceBalance 855 ml 200 ml 400 ml Results Results 24hrs Laboratory Tests Test 07/14/18 17:30 07/14/18 20:44 07/14/18 22:50 07/15/18 06:09 Bedside Glucose 100 146 160 White Blood Count 11.1 H Red Blood Count 2.83 L Hemoglobin 8.6 L Hematocrit 25.2 L Mean Corpuscular 89.0 Volume Mean Corpuscular 30.4 Hemoglobin Mean Corpuscular 34.1 Hemoglobin Concent Red Cell 11.8 Distribution Width Platelet Count 209 # Mean Platelet Volume 10.2 Immature 0.500 H Granulocytes % Neutrophils % 61.0 Lymphocytes % 23.5 Monocytes % 11.3 H Eosinophils % 3.4 Basophils % 0.3 Nucleated Red Blood 0.0 Cells % Immature 0.060 H Granulocytes # Neutrophils # 6.8 Lymphocytes # 2.6 Monocytes # 1.3 H Eosinophils # 0.4 Basophils # 0.0 Nucleated Red Blood 0.0 Cells # Sodium Level 134 L Potassium Level 4.6 Chloride Level 99 Carbon Dioxide Level 25 Anion Gap 10 Blood Urea Nitrogen 21 H Creatinine 1.01 Est Glomerular > 60 Filtrat Rate mL/min Glucose Level 135 Calcium Level 8.2 L Phosphorus Level 4.2 Magnesium Level 2.5 Test 07/15/18 07:35 07/15/18 11:43 Bedside Glucose 139 124 Medications Medication Current Medications Insulin Human Regular 100 unit/ Sodium Chloride 100 ml @ 0 mls/hr PER PROTOCOL IV Last administered on 07/12/18at 14:05; Admin Dose 7 MLS/HR; Start 07/11/18 at 19:30; Status Hold Miscellaneous Information (* Miscellaneous Pharmacy Order) Treatment of Hypoglycemia: 1.BG 51... Per protocol XX ; Start 07/11/18 at 19:30 Dextrose (D50w Syringe) 25 ml Q15M PRN IV .DECREASED GLUCOSE; Start 07/11/18 at 19:30 Dextrose (D50w Syringe) 50 ml Q15M PRN IV .DECREASED GLUCOSE; Start 07/11/18 at 19:30 Oxycodone/ Acetaminophen (Percocet (5/ 325)) 1 tab Q3H PRN PO PAIN LEVEL 1-5 Last administered on 07/14/18 09:36; Admin Dose 1 TAB; Start 07/11/18 at 19:30 Oxycodone/ Acetaminophen (Percocet (5/ 325)) 2 tab Q3H PRN PO PAIN LEVEL 6-10 Last administered on 07/15/18 02:42; Admin Dose 2 TAB; Start 07/11/18 at 19:30 Ondansetron HCl (Zofran Inj) 4 mg Q6H PRN IV NAUSEA AND/OR VOMITING Last administered on 07/14/18 13:55; Admin Dose 4 MG; Start 07/11/18 at 19:30 Acetaminophen (Tylenol Tab) 650 mg Q3H PRN PO ELEVATED TEMPERATURE; Start 07/11/18 at 19:30 Potassium Chloride 50 ml @ 50 mls/hr SEE DIRECTION PRN IVPB K+ LEVEL Last administered on 07/12/18 00:36; Admin Dose 50 MLS/HR; Start 07/11/18 at 19:30 Magnesium Sulfate/ Dextrose 100 ml @ 100 mls/hr PRN PRN IVPB PENDING LAB VALUE; Start 07/11/18 at 19:30 Hydromorphone HCl (Dilaudid) 1 mg Q3H PRN IV SEVERE PAIN LEVEL 7-10 Last administered on 07/15/18 09:27; Admin Dose 1 MG; Start 07/11/18 at 19:30 Enoxaparin Sodium (Lovenox) 40 mg DAILY SC Last administered on 07/15/18 07:53; Admin Dose 40 MG; Start 07/12/18 at 09:00 Nitroglycerin/ Dextrose 250 ml @ 1.5 mls/hr PER PROTOCOL IV Last administered on 07/11/18 20:09; Admin Dose 1.5 MLS/HR; Start 07/11/18 at 20:00 Dopamine HCl/ Dextrose 250 ml @ 7.365 mls/ hr PER PROTOCOL IV Last administered on 07/11/18 20:09; Admin Dose 4.04 MLS/HR; Start 07/11/18 at 20:00 Phenylephrine HCl 250 ml @ 75 mls/hr TITRATE IV Last administered on 07/12/18 02:51; Admin Dose 52 MLS/HR; Start 07/11/18 at 21:28 Famotidine (Pepcid) 20 mg BID PO Last administered on 07/15/18 07:51; Admin Dose 20 MG; Start 07/12/18 at 09:00 Aspirin (Aspirin) 81 mg DAILY PO Last administered on 07/15/18 07:51; Admin Dose 81 MG; Start 07/14/18 at 09:00 Atorvastatin Calcium (Lipitor) 40 mg HS PO Last administered on 07/14/18 20:45; Admin Dose 40 MG; Start 07/13/18 at 21:00 Diagnostic Test (Pha) (Accu-Chek) 1 ea 02 XX ; Start 07/14/18 at 02:00 Insulin Glargine (Lantus) 45 units DAILY@0800 SC Last administered on 07/15/18 07:54; Admin Dose 45 UNITS; Start 07/14/18 at 08:00 Insulin Aspart (Novolog Insulin Pen) 10 unit WITH MEALS SC Last administered on 07/15/18 07:54; Admin Dose 10 UNIT; Start 07/13/18 at 11:30 Insulin Aspart (Novolog Insulin Pen) NOVOLOG *MODERATE* ALGORITHM WITH MEALS BEDTIME SC Last administered on 07/14/18 12:04; Admin Dose 2 UNIT; Start 07/13/18 at 11:30 Metoprolol Tartrate (Lopressor) 50 mg TID PO Last administered on 07/15/18 07:51; Admin Dose 50 MG; Start 07/13/18 at 21:00 Sodium Chloride 1,000 ml @ 100 mls/hr Q10H IV Last administered on 07/15/18 02:42; Admin Dose 100 MLS/HR; Start 07/14/18 at 17:30 HEIDI GALAVIZ MD Jul 15, 2018 12:33
--- NOTE | 2018-07-15 12:58 | CONS ---
Assessment/Plan Assessment/Plan Hospital Course (Demo Recall) Unstable angina Severe coronary artery disease status post CABG x4, [place] to LAD, SVG to PDA, SVG to diagonal artery sequenced to obtuse marginal artery Acute decompensated diastolic congestive heart failure Preserved ejection fraction Hypertension Dyslipidemia -Patient doing well post open heart surgery. Evidence of volume overload and improvements in creatinine after IV fluids. Will give 1 dose of IV Lasix a day -Continue aspirin therapy, statin therapy, beta-blockers heart rate and blood pressure permits -Encourage incentive spirometry Consultation Date/Type/Reason Admit Date/Time Jul 10, 2018 at 10:01 Initial Consult Date 07/10/18 Type of Consult Cardiology Date/Time of Note DATE: 07/15/18 TIME: 12:57 24 HR Interval Summary Free Text/Dictation Overall feeling better. Denies palpitations, shortness of breath Exam/Review of Systems Vital Signs Vitals Vital Signs Date Temp Pulse Resp B/P (MAP) Pulse Ox O2 O2 Flow FiO2 Time Delivery Rate 07/15/18 98.1 84 20 121/62 91 11:33 (81) 07/15/18 Nasal 2.0 08:00 Cannula 07/13/18 27 01:29 Intake and Output 07/14/18 07/14/18 07/15/18 1515:00 23:00 07:00 IntakeIntake Total 1050 ml 400 ml 2250 ml OutputOutput Total 195 ml 200 ml 1850 ml BalanceBalance 855 ml 200 ml 400 ml Exam Constitutional: alert, oriented (No apparent distress) Head: normocephalic Respiratory: other (Coarse breath sounds bilaterally, crackles at the bases) Cardiovascular: regular rate and rhythm (S1-S2 heard) Gastrointestinal: soft, non-tender, bowel sounds Extremities: edema (Trace) Labs Result Diagram: 07/15/18 0609 07/15/18 0609 Results 24hrs Laboratory Tests Test 07/14/18 17:30 07/14/18 20:44 07/14/18 22:50 07/15/18 06:09 Bedside Glucose 100 146 160 White Blood Count 11.1 H Red Blood Count 2.83 L Hemoglobin 8.6 L Hematocrit 25.2 L Mean Corpuscular 89.0 Volume Mean Corpuscular 30.4 Hemoglobin Mean Corpuscular 34.1 Hemoglobin Concent Red Cell 11.8 Distribution Width Platelet Count 209 # Mean Platelet Volume 10.2 Immature 0.500 H Granulocytes % Neutrophils % 61.0 Lymphocytes % 23.5 Monocytes % 11.3 H Eosinophils % 3.4 Basophils % 0.3 Nucleated Red Blood 0.0 Cells % Immature 0.060 H Granulocytes # Neutrophils # 6.8 Lymphocytes # 2.6 Monocytes # 1.3 H Eosinophils # 0.4 Basophils # 0.0 Nucleated Red Blood 0.0 Cells # Sodium Level 134 L Potassium Level 4.6 Chloride Level 99 Carbon Dioxide Level 25 Anion Gap 10 Blood Urea Nitrogen 21 H Creatinine 1.01 Est Glomerular > 60 Filtrat Rate mL/min Glucose Level 135 Calcium Level 8.2 L Phosphorus Level 4.2 Magnesium Level 2.5 Test 07/15/18 07:35 07/15/18 11:43 Bedside Glucose 139 124 Medications Medications Current Medications Insulin Human Regular 100 unit/ Sodium Chloride 100 ml @ 0 mls/hr PER PROTOCOL IV Last administered on 07/12/18at 14:05; Admin Dose 7 MLS/HR; Start 07/11/18 at 19:30; Status Hold Miscellaneous Information (* Miscellaneous Pharmacy Order) Treatment of Hypoglycemia: 1.BG 51... Per protocol XX ; Start 07/11/18 at 19:30 Dextrose (D50w Syringe) 25 ml Q15M PRN IV .DECREASED GLUCOSE; Start 07/11/18 at 19:30 Dextrose (D50w Syringe) 50 ml Q15M PRN IV .DECREASED GLUCOSE; Start 07/11/18 at 19:30 Oxycodone/ Acetaminophen (Percocet (5/ 325)) 1 tab Q3H PRN PO PAIN LEVEL 1-5 Last administered on 07/14/18at 09:36; Admin Dose 1 TAB; Start 07/11/18 at 19:30 Oxycodone/ Acetaminophen (Percocet (5/ 325)) 2 tab Q3H PRN PO PAIN LEVEL 6-10 Last administered on 07/15/18at 02:42; Admin Dose 2 TAB; Start 07/11/18 at 19:30 Ondansetron HCl (Zofran Inj) 4 mg Q6H PRN IV NAUSEA AND/OR VOMITING Last administered on 07/14/18at 13:55; Admin Dose 4 MG; Start 07/11/18 at 19:30 Acetaminophen (Tylenol Tab) 650 mg Q3H PRN PO ELEVATED TEMPERATURE; Start 07/11/18 at 19:30 Potassium Chloride 50 ml @ 50 mls/hr SEE DIRECTION PRN IVPB K+ LEVEL Last administered on 07/12/18 00:36; Admin Dose 50 MLS/HR; Start 07/11/18 at 19:30 Magnesium Sulfate/ Dextrose 100 ml @ 100 mls/hr PRN PRN IVPB PENDING LAB VALUE; Start 07/11/18 at 19:30 Hydromorphone HCl (Dilaudid) 1 mg Q3H PRN IV SEVERE PAIN LEVEL 7-10 Last administered on 07/15/18 09:27; Admin Dose 1 MG; Start 07/11/18 at 19:30 Enoxaparin Sodium (Lovenox) 40 mg DAILY SC Last administered on 07/15/18 07:53; Admin Dose 40 MG; Start 07/12/18 at 09:00 Nitroglycerin/ Dextrose 250 ml @ 1.5 mls/hr PER PROTOCOL IV Last administered on 07/11/18 20:09; Admin Dose 1.5 MLS/HR; Start 07/11/18 at 20:00 Dopamine HCl/ Dextrose 250 ml @ 7.365 mls/ hr PER PROTOCOL IV Last a dministered on 07/11/18 20:09; Admin Dose 4.04 MLS/HR; Start 07/11/18 at 20:00 Phenylephrine HCl 250 ml @ 75 mls/hr TITRATE IV Last administered on 07/12/18 02:51; Admin Dose 52 MLS/HR; Start 07/11/18 at 21:28 Famotidine (Pepcid) 20 mg BID PO Last administered on 07/15/18 07:51; Admin Dose 20 MG; Start 07/12/18 at 09:00 Aspirin (Aspirin) 81 mg DAILY PO Last administered on 07/15/18 07:51; Admin Dose 81 MG; Start 07/14/18 at 09:00 Atorvastatin Calcium (Lipitor) 40 mg HS PO Last administered on 07/14/18 20:45; Admin Dose 40 MG; Start 07/13/18 at 21:00 Diagnostic Test (Pha) (Accu-Chek) 1 ea 02 XX ; Start 07/14/18 at 02:00 Insulin Glargine (Lantus) 45 units DAILY@0800 SC Last administered on 07/15/18 07:54; Admin Dose 45 UNITS; Start 07/14/18 at 08:00 Insulin Aspart (Novolog Insulin Pen) 10 unit WITH MEALS SC Last administered on 07/15/18 07:54; Admin Dose 10 UNIT; Start 07/13/18 at 11:30 Insulin Aspart (Novolog Insulin Pen) NOVOLOG *MODERATE* ALGORITHM WITH MEALS BEDTIME SC Last administered on 07/14/18 12:04; Admin Dose 2 UNIT; Start 07/13/18 at 11:30 Metoprolol Tartrate (Lopressor) 50 mg TID PO Last administered on 07/15/18 07:51; Admin Dose 50 MG; Start 07/13/18 at 21:00 Sodium Chloride 1,000 ml @ 100 mls/hr Q10H IV Last administered on 07/15/18 02:42; Admin Dose 100 MLS/HR; Start 07/14/18 at 17:30 Bill Wray DO Jul 15, 2018 12:58
[2018-07-15] MEDS ORDERED: FUROSEMIDE 40 MG INJ IV ONE (13:00)
[2018-07-15] MEDS: ATORVASTATIN 40 MG TAB PO SCH (20:21)
[2018-07-16] VITALS (10 sets, daily range): BP systolic 104–132; BP diastolic 62–70; PULSE 73–95; RESP 19–20
[2018-07-16] MEDS: ACCU-CHEK XX SCH (02:00)
[2018-07-16] MEDS: HYDROmorphONE 1 MG/ML SYG IV PRN (05:21)
[2018-07-16] MEDS: FUROSEMIDE 40 MG INJ IV SCH ×2 (05:22→17:19)
[2018-07-16] MEDS: INSULIN ASPART [NOVOLOG] 3 ML PEN SC SCH ×7 (08:00→21:00)
[2018-07-16] MEDS: FAMOTIDINE 20 MG TAB PO SCH ×2 (08:06→22:05)
[2018-07-16] MEDS: ASPIRIN 81 MG TAB PO SCH (08:06)
[2018-07-16] MEDS: METOPROLOL 50 MG TAB PO SCH ×3 (08:08→22:05)
[2018-07-16] MEDS: INSULIN GLARGINE [LANTus] (100 UNITS/ML) SYG SC SCH (08:13)
[2018-07-16] MEDS: ENOXAPARIN 40 MG/0.4 ML SYG SC SCH (08:16)
[2018-07-16] MEDS: OXYCODONE/ACETAMINOPHEN (5/325) TAB PO PRN (11:54)
--- NOTE | 2018-07-16 12:02 | PN ---
Date/Time of Note Date/Time of Note DATE: 07/16/18 TIME: 12:00 Assessment/Plan VTE Prophylaxis Risk score (from Nsg)>0 risk: 4 SCD applied (from Ns): No SCD contraindicated: other Pharmacological prophylaxis: LMWH Lines/Catheters IV Catheter Type (from Nrs): Saline Lock Urinary Cath still in place: No Assessment/Plan Hospital Course S: Patient had no acute events overnight, on IV Lasix twice daily since yesterday. Using an spirometer as well. O: VS - see below PE: Gen: Obese man lying in bed, no acute distress Eyes: PERRL, no icterus HEENT: Moist mucous membranes, clear oropharynx Neck: Supple, no lymphadenopathy, no JVD Card: Regular rate and rhythm, no murmurs Chest: Midline sternotomy with dressing. Pulm: Less diminished lung expansion bilaterally with less reduced breath sounds throughout. On room air. Abd: Obese, nondistended. Ext: No LE edema. Assessment/Plan: 53 yo obese man with HTN, IDDM, severe CAD who presents with 3- vessel CAD #CAD- Cardiac cath 07/10 shows severe stenosis of the L main, circumflex, LAD, and RCA- s/p CABG x4 on 07/11. Dr. Patterson, Dr. Luu following (Previously saw Saleem in clinic). Now on room air, drains out. -Monitor, continue PT, cardiology/CT surgery to manage antiplatelet and anticoagulation postoperatively. -Continue aspirin, beta-anthony, statin, IV Lasix per cardiology recommendations presently #IDDM: A1c was 7.4. Sugars are stable -Continue long-acting insulin, mealtime aspart, and sliding scale. #HTN: Stable -Continue BB, monitor #GERD - Continue H2 anthony #BPH - Cont tamsulosin GI: H2 anthony Dispo: Likely home in the next 24 hours once cleared by consultant technology teams, and case management has set up home health PT and likely home health nursing as well. Result Diagram: 07/16/18 0455 07/16/18 0455 Results 24hrs Laboratory Tests Test 07/15/18 16:21 07/15/18 20:20 07/16/18 04:55 07/16/18 07:26 Bedside Glucose 227 H 182 166 White Blood Count 8.7 # Red Blood Count 3.00 L Hemoglobin 9.0 L Hematocrit 26.7 L Mean Corpuscular 89.0 Volume Mean Corpuscular 30.0 Hemoglobin Mean Corpuscular 33.7 Hemoglobin Concent Red Cell 11.8 Distribution Width Platelet Count 314 # Mean Platelet Volume 9.8 Immature 0.700 H Granulocytes % Neutrophils % 58.3 Lymphocytes % 25.2 Monocytes % 10.8 Eosinophils % 4.5 Basophils % 0.5 Nucleated Red Blood 0.0 Cells % Immature 0.060 H Granulocytes # Neutrophils # 5.1 Lymphocytes # 2.2 Monocytes # 0.9 Eosinophils # 0.4 Basophils # 0.0 Nucleated Red Blood 0.0 Cells # Sodium Level 139 Potassium Level 4.2 Chloride Level 103 Carbon Dioxide Level 28 Anion Gap 8 Blood Urea Nitrogen 11 # Creatinine 0.79 Est Glomerular > 60 Filtrat Rate mL/min Glucose Level 159 Calcium Level 9.1 Phosphorus Level 4.1 Magnesium Level 2.3 Test 07/16/18 11:32 Bedside Glucose 170 Exam/Review of Systems Exam Vitals Vital Signs Date Temp Pulse Resp B/P (MAP) Pulse Ox O2 O2 Flow FiO2 Time Delivery Rate 07/16/18 97.6 81 20 117/69 99 11:19 (85) 07/16/18 2.0 28 02:17 07/15/18 Nasal 08:00 Cannula Intake and Output 07/15/18 07/15/18 07/16/18 1515:00 23:00 07:00 IntakeIntake Total 700 ml 1800 ml 1200 ml OutputOutput Total 1150 ml BalanceBalance 700 ml 650 ml 1200 ml Results Results 24hrs Laboratory Tests Test 07/15/18 16:21 07/15/18 20:20 07/16/18 04:55 07/16/18 07:26 Bedside Glucose 227 H 182 166 White Blood Count 8.7 # Red Blood Count 3.00 L Hemoglobin 9.0 L Hematocrit 26.7 L Mean Corpuscular 89.0 Volume Mean Corpuscular 30.0 Hemoglobin Mean Corpuscular 33.7 Hemoglobin Concent Red Cell 11.8 Distribution Width Platelet Count 314 # Mean Platelet Volume 9.8 Immature 0.700 H Granulocytes % Neutrophils % 58.3 Lymphocytes % 25.2 Monocytes % 10.8 Eosinophils % 4.5 Basophils % 0.5 Nucleated Red Blood 0.0 Cells % Immature 0.060 H Granulocytes # Neutrophils # 5.1 Lymphocytes # 2.2 Monocytes # 0.9 Eosinophils # 0.4 Basophils # 0.0 Nucleated Red Blood 0.0 Cells # Sodium Level 139 Potassium Level 4.2 Chloride Level 103 Carbon Dioxide Level 28 Anion Gap 8 Blood Urea Nitrogen 11 # Creatinine 0.79 Est Glomerular > 60 Filtrat Rate mL/min Glucose Level 159 Calcium Level 9.1 Phosphorus Level 4.1 Magnesium Level 2.3 Test 07/16/18 11:32 Bedside Glucose 170 Medications Medication Current Medications Insulin Human Regular 100 unit/ Sodium Chloride 100 ml @ 0 mls/hr PER PROTOCOL IV Last administered on 07/12/18at 14:05; Admin Dose 7 MLS/HR; Start 07/11/18 at 19:30; Status Hold Miscellaneous Information (* Miscellaneous Pharmacy Order) Treatment of Hypoglycemia: 1.BG 51... Per protocol XX ; Start 07/11/18 at 19:30 Dextrose (D50w Syringe) 25 ml Q15M PRN IV .DECREASED GLUCOSE; Start 07/11/18 at 19:30 Dextrose (D50w Syringe) 50 ml Q15M PRN IV .DECREASED GLUCOSE; Start 07/11/18 at 19:30 Oxycodone/ Acetaminophen (Percocet (5/ 325)) 1 tab Q3H PRN PO PAIN LEVEL 1-5 Last administered on 07/14/18at 09:36; Admin Dose 1 TAB; Start 07/11/18 at 19:30 Oxycodone/ Acetaminophen (Percocet (5/ 325)) 2 tab Q3H PRN PO PAIN LEVEL 6-10 Last administered on 07/15/18at 14:41; Admin Dose 2 TAB; Start 07/11/18 at 19:30 Ondansetron HCl (Zofran Inj) 4 mg Q6H PRN IV NAUSEA AND/OR VOMITING Last administered on 07/14/18at 13:55; Admin Dose 4 MG; Start 07/11/18 at 19:30 Acetaminophen (Tylenol Tab) 650 mg Q3H PRN PO ELEVATED TEMPERATURE; Start 07/11/18 at 19:30 Potassium Chloride 50 ml @ 50 mls/hr SEE DIRECTION PRN IVPB K+ LEVEL Last administered on 07/12/18at 00:36; Admin Dose 50 MLS/HR; Start 07/11/18 at 19:30 Magnesium Sulfate/ Dextrose 100 ml @ 100 mls/hr PRN PRN IVPB PENDING LAB VALUE; Start 07/11/18 at 19:30 Hydromorphone HCl (Dilaudid) 1 mg Q3H PRN IV SEVERE PAIN LEVEL 7-10 Last administered on 07/16/18 05:21; Admin Dose 1 MG; Start 07/11/18 at 19:30 Enoxaparin Sodium (Lovenox) 40 mg DAILY SC Last administered on 07/16/18 08:16; Admin Dose 40 MG; Start 07/12/18 at 09:00 Nitroglycerin/ Dextrose 250 ml @ 1.5 mls/hr PER PROTOCOL IV Last administered on 07/11/18 20:09; Admin Dose 1.5 MLS/HR; Start 07/11/18 at 20:00 Dopamine HCl/ Dextrose 250 ml @ 7.365 mls/ hr PER PROTOCOL IV Last administered on 07/11/18 20:09; Admin Dose 4.04 MLS/HR; Start 07/11/18 at 20:00 Phenylephrine HCl 250 ml @ 75 mls/hr TITRATE IV Last administered on 07/12/18 02:51; Admin Dose 52 MLS/HR; Start 07/11/18 at 21:28 Famotidine (Pepcid) 20 mg BID PO Last administered on 07/16/18 08:06; Admin Dose 20 MG; Start 07/12/18 at 09:00 Aspirin (Aspirin) 81 mg DAILY PO Last administered on 07/16/18 08:06; Admin Dose 81 MG; Start 07/14/18 at 09:00 Atorvastatin Calcium (Lipitor) 40 mg HS PO Last administered on 07/15/18 20:21; Admin Dose 40 MG; Start 07/13/18 at 21:00 Diagnostic Test (Pha) (Accu-Chek) 1 ea 02 XX ; Start 07/14/18 at 02:00 Insulin Glargine (Lantus) 45 units DAILY@0800 SC Last administered on 07/16/18 08:13; Admin Dose 45 UNITS; Start 07/14/18 at 08:00 Insulin Aspart (Novolog Insulin Pen) 10 unit WITH MEALS SC Last administered on 07/15/18 07:54; Admin Dose 10 UNIT; Start 07/13/18 at 11:30 Insulin Aspart (Novolog Insulin Pen) NOVOLOG *MODERATE* ALGORITHM WITH MEALS BEDTIME SC Last administered on 07/16/18at 08:15; Admin Dose 2 UNIT; Start 07/13/18 at 11:30 Metoprolol Tartrate (Lopressor) 50 mg TID PO Last administered on 07/16/18at 08:08; Admin Dose 50 MG; Start 07/13/18 at 21:00 Furosemide (Lasix) 40 mg BID DIURETICS IV Last administered on 07/16/18at 05:22; Admin Dose 40 MG; Start 07/16/18 at 06:00 DIMITRI APPLE Jul 16, 2018 12:02
--- NOTE | 2018-07-16 12:28 | PN ---
Date/Time of Note Date/Time of Note DATE: 07/16/18 TIME: 12:27 Assessment/Plan Lines/Catheters IV Catheter Type (from [facility]): Saline Lock Olivares in Place (from [facility]): No Assessment/Plan Assessment/Plan Doing well, NSR. labs ok. continue diuresis. remove pacing wire and home tomorrow Exam/Review of Systems Vital Signs Vitals Vital Signs Date Temp Pulse Resp B/P (MAP) Pulse Ox O2 O2 Flow FiO2 Time Delivery Rate 07/16/18 97.6 81 20 117/69 99 11:19 (85) 07/16/18 2.0 28 02:17 07/15/18 Nasal 08:00 Cannula Intake and Output 07/15/18 07/15/18 07/16/18 1414:59 22:59 06:59 IntakeIntake Total 700 ml 1800 ml 1200 ml OutputOutput Total 1150 ml BalanceBalance 700 ml 650 ml 1200 ml Results Result Diagram: 07/16/18 0455 07/16/18 0455 HUSSEIN BOUDREAUX MD Jul 16, 2018 12:28
--- NOTE | 2018-07-16 13:13 | CONS ---
Assessment/Plan Assessment/Plan Hospital Course (Demo Recall) Unstable angina Severe coronary artery disease status post CABG x4, EVERETT to LAD, SVG to PDA, SVG to diagonal artery sequenced to obtuse marginal artery Acute decompensated diastolic congestive heart failure Preserved ejection fraction Hypertension Dyslipidemia -Lung examination improved after initiating diuretics. In discussion with patient, he did have hypoxia today with ambulation and was put on oxygen supplementation. -We will continue IV diuretics and titrate as needed -Chest x-ray in the a.m. -Continue aspirin therapy, statin therapy, beta-blockers heart rate and blood pressure permits -Encourage incentive spirometry Consultation Date/Type/Reason Admit Date/Time Jul 10, 2018 at 10:01 Initial Consult Date 07/10/18 Type of Consult Cardiology Date/Time of Note DATE: 07/16/18 TIME: 13:12 24 HR Interval Summary Free Text/Dictation Slightly less congestion since yesterday. Denies shortness of breath currently Exam/Review of Systems Vital Signs Vitals Vital Signs Date Temp Pulse Resp B/P (MAP) Pulse Ox O2 O2 Flow FiO2 Time Delivery Rate 07/16/18 83 12:00 07/16/18 97.6 20 117/69 99 11:19 (85) 07/16/18 2.0 28 02:17 07/15/18 Nasal 08:00 Cannula Intake and Output 07/15/18 07/15/18 07/16/18 1515:00 23:00 07:00 IntakeIntake Total 700 ml 1800 ml 1200 ml OutputOutput Total 1150 ml BalanceBalance 700 ml 650 ml 1200 ml Exam Constitutional: alert, oriented Head: normocephalic Respiratory: other (Coarse breath sounds bilaterally, no wheezing) Cardiovascular: regular rate and rhythm (S1-S2 heard) Gastrointestinal: soft, non-tender, bowel sounds Extremities: other (No significant edema) Labs Result Diagram: 07/16/18 0455 07/16/18 0455 Results 24hrs Laboratory Tests Test 07/15/18 16:21 07/15/18 20:20 07/16/18 04:55 07/16/18 07:26 Bedside Glucose 227 H 182 166 White Blood Count 8.7 # Red Blood Count 3.00 L Hemoglobin 9.0 L Hematocrit 26.7 L Mean Corpuscular 89.0 Volume Mean Corpuscular 30.0 Hemoglobin Mean Corpuscular 33.7 Hemoglobin Concent Red Cell 11.8 Distribution Width Platelet Count 314 # Mean Platelet Volume 9.8 Immature 0.700 H Granulocytes % Neutrophils % 58.3 Lymphocytes % 25.2 Monocytes % 10.8 Eosinophils % 4.5 Basophils % 0.5 Nucleated Red Blood 0.0 Cells % Immature 0.060 H Granulocytes # Neutrophils # 5.1 Lymphocytes # 2.2 Monocytes # 0.9 Eosinophils # 0.4 Basophils # 0.0 Nucleated Red Blood 0.0 Cells # Sodium Level 139 Potassium Level 4.2 Chloride Level 103 Carbon Dioxide Level 28 Anion Gap 8 Blood Urea Nitrogen 11 # Creatinine 0.79 Est Glomerular > 60 Filtrat Rate mL/min Glucose Level 159 Calcium Level 9.1 Phosphorus Level 4.1 Magnesium Level 2.3 Test 07/16/18 11:32 Bedside Glucose 170 Medications Medications Current Medications Insulin Human Regular 100 unit/ Sodium Chloride 100 ml @ 0 mls/hr PER PROTOCOL IV Last administered on 07/12/18 14:05; Admin Dose 7 MLS/HR; Start 07/11/18 at 19:30; Status Hold Miscellaneous Information (* Miscellaneous Pharmacy Order) Treatment of Hypoglycemia: 1.BG 51... Per protocol XX ; Start 07/11/18 at 19:30 Dextrose (D50w Syringe) 25 ml Q15M PRN IV .DECREASED GLUCOSE; Start 07/11/18 at 19:30 Dextrose (D50w Syringe) 50 ml Q15M PRN IV .DECREASED GLUCOSE; Start 07/11/18 at 19:30 Oxycodone/ Acetaminophen (Percocet (5/ 325)) 1 tab Q3H PRN PO PAIN LEVEL 1-5 Last administered on 07/16/18at 11:54; Admin Dose 1 TAB; Start 07/11/18 at 19:30 Oxycodone/ Acetaminophen (Percocet (5/ 325)) 2 tab Q3H PRN PO PAIN LEVEL 6-10 Last administered on 07/15/18at 14:41; Admin Dose 2 TAB; Start 07/11/18 at 19:30 Ondansetron HCl (Zofran Inj) 4 mg Q6H PRN IV NAUSEA AND/OR VOMITING Last administered on 07/14/18at 13:55; Admin Dose 4 MG; Start 07/11/18 at 19:30 Acetaminophen (Tylenol Tab) 650 mg Q3H PRN PO ELEVATED TEMPERATURE; Start 07/11/18 at 19:30 Potassium Chloride 50 ml @ 50 mls/hr SEE DIRECTION PRN IVPB K+ LEVEL Last ad ministered on 07/12/18 00:36; Admin Dose 50 MLS/HR; Start 07/11/18 at 19:30 Magnesium Sulfate/ Dextrose 100 ml @ 100 mls/hr PRN PRN IVPB PENDING LAB VALUE; Start 07/11/18 at 19:30 Hydromorphone HCl (Dilaudid) 1 mg Q3H PRN IV SEVERE PAIN LEVEL 7-10 Last administered on 07/16/18 05:21; Admin Dose 1 MG; Start 07/11/18 at 19:30 Enoxaparin Sodium (Lovenox) 40 mg DAILY SC Last administered on 07/16/18 08:16; Admin Dose 40 MG; Start 07/12/18 at 09:00 Nitroglycerin/ Dextrose 250 ml @ 1.5 mls/hr PER PROTOCOL IV Last administered on 07/11/18 20:09; Admin Dose 1.5 MLS/HR; Start 07/11/18 at 20:00 Dopamine HCl/ Dextrose 250 ml @ 7.365 mls/ hr PER PROTOCOL IV Last administered on 07/11/18 20:09; Admin Dose 4.04 MLS/HR; Start 07/11/18 at 20:00 Phenylephrine HCl 250 ml @ 75 mls/hr TITRATE IV Last administered on 07/12/18 02:51; Admin Dose 52 MLS/HR; Start 07/11/18 at 21:28 Famotidine (Pepcid) 20 mg BID PO Last administered on 07/16/18 08:06; Admin Dose 20 MG; Start 07/12/18 at 09:00 Aspirin (Aspirin) 81 mg DAILY PO Last administered on 07/16/18 08:06; Admin Dose 81 MG; Start 07/14/18 at 09:00 Atorvastatin Calcium (Lipitor) 40 mg HS PO Last administered on 07/15/18 20:21; Admin Dose 40 MG; Start 07/13/18 at 21:00 Diagnostic Test (Pha) (Accu-Chek) 1 ea 02 XX ; Start 07/14/18 at 02:00 Insulin Glargine (Lantus) 45 units DAILY@0800 SC Last administered on 07/16/18 08:13; Admin Dose 45 UNITS; Start 07/14/18 at 08:00 Insulin Aspart (Novolog Insulin Pen) 10 unit WITH MEALS SC Last administered on 07/16/18 12:24; Admin Dose 10 UNIT; Start 07/13/18 at 11:30 Insulin Aspart (Novolog Insulin Pen) NOVOLOG *MODERATE* ALGORITHM WITH MEALS BEDTIME SC Last administered on 07/16/18 12:29; Admin Dose 2 UNIT; Start 07/13/18 at 11:30 Metoprolol Tartrate (Lopressor) 50 mg TID PO Last administered on 07/16/18 08:08; Admin Dose 50 MG; Start 07/13/18 at 21:00 Furosemide (Lasix) 40 mg BID DIURETICS IV Last administered on 07/16/18 05:22; Admin Dose 40 MG; Start 07/16/18 at 06:00 Bill Wray DO Jul 16, 2018 13:13
[2018-07-16] MEDS: ATORVASTATIN 40 MG TAB PO SCH (22:05)
[2018-07-17] VITALS (13 sets, daily range): BP systolic 112–138; BP diastolic 60–78; PULSE 56–90; RESP 19–20
[2018-07-17] MEDS: ACCU-CHEK XX SCH (02:00)
[2018-07-17] MEDS: OXYCODONE/ACETAMINOPHEN (5/325) TAB PO PRN ×2 (02:47→21:17)
[2018-07-17] MEDS: FUROSEMIDE 40 MG INJ IV SCH ×2 (05:48→17:35)
[2018-07-17] MEDS: INSULIN ASPART [NOVOLOG] 3 ML PEN SC SCH ×7 (08:00→22:56)
[2018-07-17] MEDS: METOPROLOL 50 MG TAB PO SCH ×3 (08:41→21:17)
[2018-07-17] MEDS: FAMOTIDINE 20 MG TAB PO SCH ×2 (08:41→21:17)
[2018-07-17] MEDS: ASPIRIN 81 MG TAB PO SCH (08:41)
[2018-07-17] MEDS: ENOXAPARIN 40 MG/0.4 ML SYG SC SCH (09:00)
--- NOTE | 2018-07-17 09:47 | PN ---
Date/Time of Note Date/Time of Note DATE: 07/17/18 TIME: 09:41 Assessment/Plan VTE Prophylaxis Risk score (from Ns)>0 risk: 4 SCD applied (from Ns): No SCD contraindicated: other Pharmacological prophylaxis: LMWH Lines/Catheters [facility] Saline Lock Urinary Cath still in place: No Assessment/Plan Hospital Course S: Patient apparently had an episode of hallucinations overnight, otherwise stable, tolerating diet, still on IV Lasix. O: VS - see below PE: Gen: Obese man lying in bed, no acute distress Eyes: PERRL, no icterus HEENT: Moist mucous membranes, clear oropharynx Neck: Supple, no lymphadenopathy, no JVD Card: Regular rate and rhythm, no murmurs Chest: Midline sternotomy with dressing. Pulm: Less diminished lung expansion bilaterally with less reduced breath sounds throughout. On room air. Abd: Obese, nondistended. Ext: No LE edema. Assessment/Plan: 53 yo obese man with HTN, IDDM, severe CAD who presents with 3- vessel CAD #CAD- Cardiac cath 07/10 shows severe stenosis of the L main, circumflex, LAD, and RCA- s/p CABG x4 on 07/11. Dr. Patterson, Dr. Luu following (Previously saw Saleem in clinic). Now on room air, drains out. -Monitor, continue PT, cardiology/CT surgery to manage antiplatelet and anticoagulation postoperatively. -Continue aspirin, beta-anthony, statin, Lasix per cardiology recommendations presently #IDDM: A1c was 7.4. Sugars are stable -Continue long-acting insulin, mealtime aspart, and sliding scale. #HTN: Stable -Continue BB, monitor #GERD - Continue H2 anthony #BPH - Cont tamsulosin GI: H2 anthony Dispo: Hopefully home in the next 24 hours once cleared by vocational rehab consultant teams, and case management has set up home health PT and likely home health nursing as well. Result Diagram: 07/17/187 07/17/18456 Results 24hrs Laboratory Tests Test 07/16/18 11:32 07/16/18 17:15 07/16/18 22:03 07/17/18 04:57 Bedside Glucose 170 136 131 White Blood Count 9.1 Red Blood Count 3.00 L Hemoglobin 9.1 L Hematocrit 26.5 L Mean Corpuscular 88.3 Volume Mean Corpuscular 30.3 Hemoglobin Mean Corpuscular 34.3 Hemoglobin Concent Red Cell 11.7 Distribution Width Platelet Count 356 Mean Platelet 9.9 Volume Immature 0.400 Granulocytes % Neutrophils % 55.9 Lymphocytes % 26.9 Monocytes % 12.0 H Eosinophils % 4.3 Basophils % 0.5 Nucleated Red 0.0 Blood Cells % Immature 0.040 H Granulocytes # Neutrophils # 5.1 Lymphocytes # 2.5 Monocytes # 1.1 H Eosinophils # 0.4 Basophils # 0.1 Nucleated Red 0.0 Blood Cells # Sodium Level 138 Potassium Level 4.3 Chloride Level 101 Carbon Dioxide 29 Level Anion Gap 8 Blood Urea 12 Nitrogen Creatinine 0.68 Est Glomerular > 60 Filtrat Rate mL/min Glucose Level 131 Calcium Level 8.7 Phosphorus Level 4.8 Magnesium Level 2.0 Test 07/17/18 08:39 07/17/18 09:14 Bedside Glucose 146 Lab Scanned Report REFERENCE LAB Exam/Review of Systems Exam Vitals Vital Signs Date Temp Pulse Resp B/P (MAP) Pulse Ox O2 O2 Flow FiO2 Time Delivery Rate 07/17/18 82 08:23 07/17/18 98.4 20 123/74 94 07:39 (90) 07/17/18 2.0 05:42 07/16/18 28 02:17 07/15/18 Nasal 08:00 Cannula Intake and Output 07/16/18 07/16/18 07/17/18 1515:00 23:00 07:00 IntakeIntake Total 1000 ml 2200 ml BalanceBalance 1000 ml 2200 ml Results Results 24hrs Laboratory Tests Test 07/16/18 11:32 07/16/18 17:15 07/16/18 22:03 07/17/18 04:57 Bedside Glucose 170 136 131 White Blood Count 9.1 Red Blood Count 3.00 L Hemoglobin 9.1 L Hematocrit 26.5 L Mean Corpuscular 88.3 Volume Mean Corpuscular 30.3 Hemoglobin Mean Corpuscular 34.3 Hemoglobin Concent Red Cell 11.7 Distribution Width Platelet Count 356 Mean Platelet 9.9 Volume Immature 0.400 Granulocytes % Neutrophils % 55.9 Lymphocytes % 26.9 Monocytes % 12.0 H Eosinophils % 4.3 Basophils % 0.5 Nucleated Red 0.0 Blood Cells % Immature 0.040 H Granulocytes # Neutrophils # 5.1 Lymphocytes # 2.5 Monocytes # 1.1 H Eosinophils # 0.4 Basophils # 0.1 Nucleated Red 0.0 Blood Cells # Sodium Level 138 Potassium Level 4.3 Chloride Level 101 Carbon Dioxide 29 Level Anion Gap 8 Blood Urea 12 Nitrogen Creatinine 0.68 Est Glomerular > 60 Filtrat Rate mL/min Glucose Level 131 Calcium Level 8.7 Phosphorus Level 4.8 Magnesium Level 2.0 Test 07/17/18 08:39 07/17/18 09:14 Bedside Glucose 146 Lab Scanned Report REFERENCE LAB Medications Medication Current Medications Insulin Human Regular 100 unit/ Sodium Chloride 100 ml @ 0 mls/hr PER PROTOCOL IV Last administered on 07/12/18at 14:05; Admin Dose 7 MLS/HR; Start 07/11/18 at 19:30; Status Hold Miscellaneous Information (* Miscellaneous Pharmacy Order) Treatment of Hypoglycemia: 1.BG 51... Per protocol XX ; Start 07/11/18 at 19:30 Dextrose (D50w Syringe) 25 ml Q15M PRN IV .DECREASED GLUCOSE; Start 07/11/18 at 19:30 Dextrose (D50w Syringe) 50 ml Q15M PRN IV .DECREASED GLUCOSE; Start 07/11/18 at 19:30 Oxycodone/ Acetaminophen (Percocet (5/ 325)) 1 tab Q3H PRN PO PAIN LEVEL 1-5 Last administered on 07/17/18at 02:47; Admin Dose 1 TAB; Start 07/11/18 at 19:30 Oxycodone/ Acetaminophen (Percocet (5/ 325)) 2 tab Q3H PRN PO PAIN LEVEL 6-10 Last administered on 07/15/18at 14:41; Admin Dose 2 TAB; Start 07/11/18 at 19:30 Ondansetron HCl (Zofran Inj) 4 mg Q6H PRN IV NAUSEA AND/OR VOMITING Last administered on 07/14/18at 13:55; Admin Dose 4 MG; Start 07/11/18 at 19:30 Acetaminophen (Tylenol Tab) 650 mg Q3H PRN PO ELEVATED TEMPERATURE; Start 07/11/18 at 19:30 Potassium Chloride 50 ml @ 50 mls/hr SEE DIRECTION PRN IVPB K+ LEVEL Last administered on 07/12/18at 00:36; Admin Dose 50 MLS/HR; Start 07/11/18 at 19:30 Magnesium Sulfate/ Dextrose 100 ml @ 100 mls/hr PRN PRN IVPB PENDING LAB VALUE; Start 07/11/18 at 19:30 Hydromorphone HCl (Dilaudid) 1 mg Q3H PRN IV SEVERE PAIN LEVEL 7-10 Last administered on 07/16/18 05:21; Admin Dose 1 MG; Start 07/11/18 at 19:30 Enoxaparin Sodium (Lovenox) 40 mg DAILY SC Last administered on 07/17/18 09:00; Admin Dose 40 MG; Start 07/12/18 at 09:00 Nitroglycerin/ Dextrose 250 ml @ 1.5 mls/hr PER PROTOCOL IV Last administered on 07/11/18 20:09; Admin Dose 1.5 MLS/HR; Start 07/11/18 at 20:00 Dopamine HCl/ Dextrose 250 ml @ 7.365 mls/ hr PER PROTOCOL IV Last administe red on 07/11/18 20:09; Admin Dose 4.04 MLS/HR; Start 07/11/18 at 20:00 Phenylephrine HCl 250 ml @ 75 mls/hr TITRATE IV Last administered on 07/12/18 02:51; Admin Dose 52 MLS/HR; Start 07/11/18 at 21:28 Famotidine (Pepcid) 20 mg BID PO Last administered on 07/17/18 08:41; Admin Dose 20 MG; Start 07/12/18 at 09:00 Aspirin (Aspirin) 81 mg DAILY PO Last administered on 07/17/18 08:41; Admin Do se 81 MG; Start 07/14/18 at 09:00 Atorvastatin Calcium (Lipitor) 40 mg HS PO Last administered on 07/16/18 22:05; Admin Dose 40 MG; Start 07/13/18 at 21:00 Diagnostic Test (Pha) (Accu-Chek) 1 ea 02 XX ; Start 07/14/18 at 02:00 Insulin Glargine (Lantus) 45 units DAILY@0800 SC Last administered on 07/16/18 08:13; Admin Dose 45 UNITS; Start 07/14/18 at 08:00 Insulin Aspart (Novolog Insulin Pen) 10 unit WITH MEALS SC Last administered on 07/16/18 18:05; Admin Dose 10 UNIT; Start 07/13/18 at 11:30 Insulin Aspart (Novolog Insulin Pen) NOVOLOG *MODERATE* ALGORITHM WITH MEALS BEDTIME SC Last administered on 07/17/18at 09:00; Admin Dose 2 UNIT; Start 07/13/18 at 11:30 Metoprolol Tartrate (Lopressor) 50 mg TID PO Last administered on 07/17/18 08:41; Admin Dose 50 MG; Start 07/13/18 at 21:00 Furosemide (Lasix) 40 mg BID DIURETICS IV Last administered on 07/17/18at 05:48; Admin Dose 40 MG; Start 07/16/18 at 06:00 DIMITRI APPLE Jul 17, 2018 09:47
[2018-07-17] MEDS: INSULIN GLARGINE [LANTus] (100 UNITS/ML) SYG SC SCH (10:01)
--- NOTE | 2018-07-17 16:38 | CONS ---
Assessment/Plan Assessment/Plan Assessment/Plan (Daily) Severe coronary artery disease status post CABG x4, [place] to LAD, SVG to PDA, SVG to diagonal artery sequenced to obtuse marginal artery Acute decompensated diastolic congestive heart failure Preserved ejection fraction Hypertension Dyslipidemia -Lung examination improved after initiating diuretics. In discussion with patient, he did have hypoxia today with ambulation and was put on oxygen supple mentation. -Continue aspirin therapy, statin therapy, beta-blockers heart rate and blood pressure permits -s/p lasix -Encourage incentive spirometry Consultation Date/Type/Reason Admit Date/Time Jul 10, 2018 at 10:01 Initial Consult Date 07/10/18 Type of Consult Cardiology Date/Time of Note DATE: 07/17/18 TIME: 16:37 24 HR Interval Summary Free Text/Dictation the patient stable Exam/Review of Systems Vital Signs Vitals Vital Signs Date Temp Pulse Resp B/P (MAP) Pulse Ox O2 O2 Flow FiO2 Time Delivery Rate 07/17/18 2.0 16:18 07/17/18 80 16:08 07/17/18 99.0 20 118/68 95 15:47 (85) 07/16/18 28 02:17 07/15/18 Nasal 08:00 Cannula Intake and Output 07/16/18 07/16/18 07/17/18 1515:00 23:00 07:00 IntakeIntake Total 1000 ml 2200 ml BalanceBalance 1000 ml 2200 ml Labs Result Diagram: 07/17/18 0457 07/17/18 0457 Results 24hrs Laboratory Tests Test 07/16/18 17:15 07/16/18 22:03 07/17/18 04:57 07/17/18 08:39 Bedside Glucose 136 131 146 White Blood Count 9.1 Red Blood Count 3.00 L Hemoglobin 9.1 L Hematocrit 26.5 L Mean Corpuscular 88.3 Volume Mean Corpuscular 30.3 Hemoglobin Mean Corpuscular 34.3 Hemoglobin Concent Red Cell 11.7 Distribution Width Platelet Count 356 Mean Platelet 9.9 Volume Immature 0.400 Granulocytes % Neutrophils % 55.9 Lymphocytes % 26.9 Monocytes % 12.0 H Eosinophils % 4.3 Basophils % 0.5 Nucleated Red 0.0 Blood Cells % Immature 0.040 H Granulocytes # Neutrophils # 5.1 Lymphocytes # 2.5 Monocytes # 1.1 H Eosinophils # 0.4 Basophils # 0.1 Nucleated Red 0.0 Blood Cells # Sodium Level 138 Potassium Level 4.3 Chloride Level 101 Carbon Dioxide 29 Level Anion Gap 8 Blood Urea 12 Nitrogen Creatinine 0.68 Est Glomerular > 60 Filtrat Rate mL/min Glucose Level 131 Calcium Level 8.7 Phosphorus Level 4.8 Magnesium Level 2.0 Test 07/17/18 09:14 07/17/18 11:51 Lab Scanned Report REFERENCE LAB Bedside Glucose 142 Medications Medications Current Medications Insulin Human Regular 100 unit/ Sodium Chloride 100 ml @ 0 mls/hr PER PROTOCOL IV Last administered on 07/12/18at 14:05; Admin Dose 7 MLS/HR; Start 07/11/18 at 19:30; Status Hold Miscellaneous Information (* Miscellaneous Pharmacy Order) Treatment of H ypoglycemia: 1.BG 51... Per protocol XX ; Start 07/11/18 at 19:30 Dextrose (D50w Syringe) 25 ml Q15M PRN IV .DECREASED GLUCOSE; Start 07/11/18 at 19:30 Dextrose (D50w Syringe) 50 ml Q15M PRN IV .DECREASED GLUCOSE; Start 07/11/18 at 19:30 Oxycodone/ Acetaminophen (Percocet (5/ 325)) 1 tab Q3H PRN PO PAIN LEVEL 1-5 Last administered on 07/17/18at 02:47; Admin Dose 1 TAB; Start 07/11/18 at 19:30 Oxycodone/ Acetaminophen (Percocet (5/ 325)) 2 tab Q3H PRN PO PAIN LEVEL 6-10 Last administered on 07/15/18at 14:41; Admin Dose 2 TAB; Start 07/11/18 at 19:30 Ondansetron HCl (Zofran Inj) 4 mg Q6H PRN IV NAUSEA AND/OR VOMITING Last administered on 07/14/18at 13:55; Admin Dose 4 MG; Start 07/11/18 at 19:30 Acetaminophen (Tylenol Tab) 650 mg Q3H PRN PO ELEVATED TEMPERATURE; Start 07/11/18 at 19:30 Potassium Chloride 50 ml @ 50 mls/hr SEE DIRECTION PRN IVPB K+ LEVEL Last administered on 07/12/18at 00:36; Admin Dose 50 MLS/HR; Start 07/11/18 at 19:30 Magnesium Sulfate/ Dextrose 100 ml @ 100 mls/hr PRN PRN IVPB PENDING LAB VALUE; Start 07/11/18 at 19:30 Hydromorphone HCl (Dilaudid) 1 mg Q3H PRN IV SEVERE PAIN LEVEL 7-10 Last administered on 07/16/18 05:21; Admin Dose 1 MG; Start 07/11/18 at 19:30 Enoxaparin Sodium (Lovenox) 40 mg DAILY SC Last administered on 07/17/18 09:00; Admin Dose 40 MG; Start 07/12/18 at 09:00 Nitroglycerin/ Dextrose 250 ml @ 1.5 mls/hr PER PROTOCOL IV Last administered on 07/11/18 20:09; Admin Dose 1.5 MLS/HR; Start 07/11/18 at 20:00 Dopamine HCl/ Dextrose 250 ml @ 7.365 mls/ hr PER PROTOCOL IV Last administered on 07/11/18 20:09; Admin Dose 4.04 MLS/HR; Start 07/11/18 at 20:00 Phenylephrine HCl 250 ml @ 75 mls/hr TITRATE IV Last administered on 07/12/18 02:51; Admin Dose 52 MLS/HR; Start 07/11/18 at 21:28 Famotidine (Pepcid) 20 mg BID PO Last administered on 07/17/18 08:41; Admin Dose 20 MG; Start 07/12/18 at 09:00 Aspirin (Aspirin) 81 mg DAILY PO Last administered on 07/17/18 08:41; Admin Dose 81 MG; Start 07/14/18 at 09:00 Atorvastatin Calcium (Lipitor) 40 mg HS PO Last administered on 07/16/18 22:05; Admin Dose 40 MG; Start 07/13/18 at 21:00 Diagnostic Test (Pha) (Accu-Chek) 1 ea 02 XX ; Start 07/14/18 at 02:00 Insulin Glargine (Lantus) 45 units DAILY@0800 SC Last administered on 07/17/18 10:01; Admin Dose 45 UNITS; Start 07/14/18 at 08:00 Insulin Aspart (Novolog Insulin Pen) 10 unit WITH MEALS SC Last administered on 07/16/18 18:05; Admin Dose 10 UNIT; Start 07/13/18 at 11:30 Insulin Aspart (Novolog Insulin Pen) NOVOLOG *MODERATE* ALGORITHM WITH MEALS BEDTIME SC Last administered on 07/17/18 12:02; Admin Dose 2 UNIT; Start 07/13/18 at 11:30 Metoprolol Tartrate (Lopressor) 50 mg TID PO Last administered on 07/17/18at 12:59; Admin Dose 50 MG; Start 07/13/18 at 21:00 Furosemide (Lasix) 40 mg BID DIURETICS IV Last administered on 07/17/18at 05:48; Admin Dose 40 MG; Start 07/16/18 at 06:00 GRETCHEN MEADOWS MD Jul 17, 2018 16:38
[2018-07-17] MEDS: ATORVASTATIN 40 MG TAB PO SCH (21:16)
[2018-07-18 00:33] VITALS: PULSE 90
[2018-07-18] MEDS: ACCU-CHEK XX SCH (02:07)
[2018-07-18 04:00] VITALS: BP 118/68; PULSE 88; RESP 19
[2018-07-18 04:03] VITALS: PULSE 79
[2018-07-18] MEDS: FUROSEMIDE 40 MG INJ IV SCH (06:31)
--- NOTE | 2018-07-18 06:38 | PN ---
Date/Time of Note Date/Time of Note DATE: 07/18/18 TIME: 06:37 Assessment/Plan Lines/Catheters IV Catheter Type (from Nrs): Saline Lock Olivares in Place (from Nrs): No Assessment/Plan Assessment/Plan some hypoxia yesterday. stable to discharge from surgery standpoint Exam/Review of Systems Vital Signs Vitals Vital Signs Date Temp Pulse Resp B/P (MAP) Pulse Ox O2 O2 Flow FiO2 Time Delivery Rate 07/18/18 2.0 04:43 07/18/18 79 04:03 07/18/18 98.7 19 118/68 94 04:00 (85) 07/16/18 28 02:17 07/15/18 Nasal 08:00 Cannula Intake and Output 07/17/18 07/17/18 07/18/18 1515:00 23:00 07:00 IntakeIntake Total 950 ml BalanceBalance 950 ml Results Result Diagram: 07/18/18 0519 07/17/18 0457 HUSSEIN BOUDREAUX MD Jul 18, 2018 06:38
[2018-07-18 07:36] VITALS: BP 114/70; PULSE 94; RESP 19
[2018-07-18] MEDS: INSULIN ASPART [NOVOLOG] 3 ML PEN SC SCH ×2 (07:36)
[2018-07-18] MEDS: ASPIRIN 81 MG TAB PO SCH (07:44)
[2018-07-18] MEDS: FAMOTIDINE 20 MG TAB PO SCH (07:44)
[2018-07-18] MEDS: METOPROLOL 50 MG TAB PO SCH (07:44)
[2018-07-18] MEDS: ENOXAPARIN 40 MG/0.4 ML SYG SC SCH (07:45)
[2018-07-18] MEDS: INSULIN GLARGINE [LANTus] (100 UNITS/ML) SYG SC SCH (07:45)
[2018-07-18 08:07] VITALS: PULSE 95
--- NOTE | 2018-07-18 09:52 | PDOCDIS ---
Discharge Instructions CONDITION [id number] Patient Condition: [id number] Stable HOME CARE INSTRUCTIONS: [id number] Diet Instructions: [id number] Low Fat /Cholesterol ACTIVITY: [id number] Activity Restrictions: [id number] Slowly Increase Activity Rest between Activity Avoid heavy lifting FOLLOW UP/APPOINTMENTS Follow-up Plan Please take your medications as prescribed, see your doctor in the clinic in the next 1 week. DIMITRI APPLE Jul 18, 2018 09:52
[2018-07-18] MEDS ORDERED: ATOR40TA68 PO (09:55)
[2018-07-18] MEDS ORDERED: METO-429 PO (09:55)
[2018-07-18] MEDS ORDERED: FURO-110 PO (09:55)
[2018-07-18] MEDS ORDERED: FAMO20TA18 PO (09:55)
[2018-07-18] MEDS ORDERED: HYDR-4011 PO (09:57)
--- NOTE | 2018-07-18 10:03 | DS ---
Date/Time of Note Date/Time of Note DATE: 07/18/18 TIME: 09:58 Discharge Summary Admission/Discharge Info Admit Date/Time Jul 10, 2018 at 10:01 Discharge Date/Time Discharge Diagnosis #CAD- Cardiac cath 07/10 shows severe stenosis of the L main, circumflex, LAD, and RCA- s/p CABG x4 on 07/11 #IDDM: A1c was 7.4. Sugars are stable #HTN: Stable #GERD #BPH Patient Condition: Stable Procedures A: Date/Time of Note Date/Time of Note DATE: 07/10/18 TIME: 09:07 Operative Report Procedure Date: Jul 10, 2018 Preoperative Diagnosis Unstable angina Abnormal stress test Postoperative Diagnosis Severe triple-vessel coronary artery disease Operation/Procedure Performed Left heart catheterization Right and left coronary angiogram Interpretation and supervision of right and left coronary angiogram LV pressure measurements Conscious sedation Left radial artery approach B. DATE OF OPERATION: 07/11/2018 PREOPERATIVE DIAGNOSES: 1. Three-vessel coronary artery disease. 2. Unstable angina. POSTOPERATIVE DIAGNOSES: 1. Three-vessel coronary artery disease. 2. Unstable angina. PROCEDURES: CABG x4, EVERETT to LAD, SVG to PDA, SVG to diagonal artery sequenced to obtuse marginal artery, endoscopic vein harvesting and epiaortic scanning of the ascending aorta. Hx of Present Illness 53-year-old obese [place] man admitted after scheduled cardiac catheterization showed severe three-vessel disease. He has a long cardiac history including a heart attack 10 years ago for which he got PCI with stent placement; and another heart attack 6 months ago at [place]. The patient believes that he got the balloon angioplasty but no stent placed at this time. He follows Dr. Haas outpatient. He has had aching chest pain with exertion for several months. There was suspicion this was statin myopathy and his statin was held several months ago without relief. He was restarted on atorvastatin 2 months ago. He was then scheduled for an outpatient nuclear medicine stress test which was positive for ischemia. Apparently the patient stopped aspirin 3 months ago and most recently has been on clopidogrel and xarelto. These latter two were stopped 4 days prior to this admission in anticipation of the cardiac cath. Today, the patient was taken for cardiac catheterization by Dr. Wray which showed severe stenosis of the L main, circumflex, LAD, and RCA. Post-procedure the patient is awake and alert with no complaints, vitals and labs unremarkable. Hospital Course Patient was admitted and seen by cardiology and cardiothoracic surgery teams during this hospital stay. He underwent left heart catheterization was found with severe three-vessel disease. Cardiothoracic surgery team performed CABG x4, specifically EVERETT to LAD, SVG to PDA, SVG to diagonal artery sequenced to obtuse marginal artery, endoscopic vein harvesting and epiaortic scanning of the ascending aorta. Patient tolerated the procedure well, afterwards he continue physical therapy was continued to be followed by cardiology and cardiothoracic surgery teams. His chest tubes were eventually taken out, sugars remained stable. A1c was found to be 7.4. He was able to ambulate, tolerated p.o. diet. After getting clearance from the otm consultant teams patient will be discharged home today in improved condition. See below for full list of discharge medications. Home Meds Active Scripts Hydrocodone/Acetaminophen ([place] 5-325 Tablet) 1 Each Tablet, 1 EACH PO Q6 for 30 Days, TAB Prov:RAHI,DIMITRI S. 07/18/18 Furosemide* (Lasix*) 20 Mg Tablet, 20 MG PO DAILY, #30 TAB 3 Refills Prov:RAHI,DIMITRI S. 07/18/18 Famotidine* (Famotidine*) 20 Mg Tablet, 20 MG PO BID, #60 TAB 4 Refills Prov:RAHI,DIMITRI S. 07/18/18 Metoprolol Tartrate* (Lopressor*) 50 Mg Tab, 50 MG PO TID, #90 TAB 4 Refills Prov:RAHI,DIMITRI S. 07/18/18 Atorvastatin* (Atorvastatin*) 40 Mg Tablet, 40 MG PO HS, #30 TAB 4 Refills Prov:RAHI,DIMITRI S. 07/18/18 Reported Medications Tamsulosin Hcl* (Tamsulosin Hcl*) 0.4 Mg Cap.er.24h, 0.4 MG PO HS, CAP 10/09/17 Gemfibrozil* (Gemfibrozil*) 600 Mg Tablet, 600 MG PO BID, TAB 10/09/17 Aspirin (Aspir-Low) 81 Mg Tablet.dr, 81 MG PO DAILY 09/14/17 Icosapent Ethyl (VASCEPA) 1 Gm Capsule, 2 GM PO BID, CAP 09/14/17 Insulin Glargine* (Lantus*) 100 Unit/Ml Soln, 45 UNIT SC DAILY, #1 VIAL 09/14/17 Metformin Hcl* (Metformin Hcl*) 1,000 Mg Tablet, 1000 MG PO WITH BREAKFAST DINNE, #60 TAB 09/14/17 Gabapentin* (Gabapentin*) 300 Mg Capsule, 300 MG PO DAILY, #60 CAP 09/14/17 Ergocalciferol (Vitamin D2) (VITAMIN D2) 50,000 Unit Capsule, 29091 UNIT PO Q7D, CAP 09/14/17 Insulin Lispro (Humalog Kwikpen U-100) 100 Unit/1 Ml Insuln.pen, 10 UNIT SQ BEFORE MEALS, EA 09/14/17 Discontinued Reported Medications Omeprazole* (Omeprazole*) 20 Mg Capsule.dr, 20 MG PO DAILY, #30 CAP 09/14/17 Lisinopril* (Lisinopril*) 2.5 Mg Tablet, 2.5 MG PO DAILY, #30 TAB 09/14/17 Follow-up Plan Please take your medications as prescribed, see your doctor in the clinic in the next 1 week. Primary Care Provider Not On Staff Doctor Time spent on discharge: > 30 minutes Pending Labs Laboratory Tests Test 07/17/18 11:51 07/17/18 17:33 07/17/18 21:20 07/18/18 01:52 Bedside 142 190 235 162 Glucose mg/dL (70-220) mg/dL (70-220) mg/dL (70-220) mg/dL (70-220) Test 07/18/18 05:19 07/18/18 07:34 White Blood 10.5 Count 10^3/ul (4.8-10 .8) Red Blood 3.33 Count 10^6/ul (4.70-6 .10) Hemoglobin 9.8 g/dl (14.0-18.0 ) Hematocrit 29.1 % (42.0-52.0) Mean 87.4 Corpuscular fl (82.0-101.0) Volume Mean 29.4 Corpuscular pg (29.0-33.0) Hemoglobin Mean 33.7 Corpuscular g/dl (32.0-37.0 Hemoglobin Conc ) ent Red Cell 11.7 Distribution % (11.5-14.5) Width Platelet Count 452 10^3/UL (140-41 5) Mean Platelet 9.8 Volume fl (7.4-10.4) Immature 0.700 Granulocytes % % (0.001-0.429) Neutrophils % 51.4 % (39.0-77.0) Lymphocytes % 32.1 % (15.0-51.0) Monocytes % 10.1 % (0.0-11.0) Eosinophils % 5.1 % (0.0-7.0) Basophils % 0.6 % (0.0-2.0) Nucleated Red 0.0 Blood Cells % /100WBC (0.0-0. 0) Immature 0.070 Granulocytes # 10^3/ul (0.0-0. 031) Neutrophils # 5.4 10^3/ul (1.6-7. 5) Lymphocytes # 3.4 10^3/ul (0.8-2. 9) Monocytes # 1.1 10^3/ul (0.3-0. 9) Eosinophils # 0.5 10^3/ul (0.0-0. 5) Basophils # 0.1 10^3/ul (0.0-0. 1) Nucleated Red 0.0 Blood Cells # 10^3/ul (0.0-0. 0) Sodium Level 138 mmol/L (135-144 ) Potassium 3.7 Level mmol/L (3.5-5.1 ) Chloride Level 98 mmol/L (97-110) Carbon Dioxide 31 Level mmol/L (21-31) Anion Gap 9 (5-13) Blood Urea 13 mg/dl (7-20) Nitrogen Creatinine 0.79 mg/dl (0.61-1.2 4) Est Glomerular > 60 Filtrat mL/min (>60) Rate mL/min Glucose Level 130 mg/dl (70-220) Calcium Level 9.1 mg/dl (8.4-10.2 ) Phosphorus 4.9 Level mg/dl (2.5-4.9) Magnesium 2.0 Level mg/dl (1.7-2.5) Bedside 149 Glucose mg/dL (70-220) DIMITRI APPLE Jul 18, 2018 10:03
--- NOTE | 2018-07-18 17:45 | CONS ---
Assessment/Plan Assessment/Plan Assessment/Plan (Daily) Severe coronary artery disease status post CABG x4, EVERETT to LAD, SVG to PDA, SVG to diagonal artery sequenced to obtuse marginal artery Acute decompensated diastolic congestive heart failure Preserved ejection fraction Hypertension Dyslipidemia -Lung examination improved after initiating diuretics. In discussion with patient, he did have hypoxia today with ambulation and was put on oxygen supple mentation. -Continue aspirin therapy, statin therapy, beta-blockers heart rate and blood pressure permits -s/p lasix -Encourage incentive spirometry Consultation Date/Type/Reason Admit Date/Time Jul 10, 2018 at 10:01 Initial Consult Date 07/10/18 Type of Consult Cardiology Date/Time of Note DATE: 07/18/18 TIME: 17:44 24 HR Interval Summary Free Text/Dictation the aptient with no compaitns Exam/Review of Systems Vital Signs Vitals Vital Signs Date Temp Pulse Resp B/P (MAP) Pulse Ox O2 O2 Flow FiO2 Time Delivery Rate 07/18/18 95 08:07 07/18/18 98.4 19 114/70 94 07:36 (85) 07/18/18 2.0 04:43 07/16/18 28 02:17 07/15/18 Nasal 08:00 Cannula Intake and Output 07/17/18 07/17/18 07/18/18 1515:00 23:00 07:00 IntakeIntake Total 950 ml BalanceBalance 950 ml Labs Result Diagram: 07/18/1851807/18/18518 Results 24hrs Laboratory Tests Test 07/17/18 21:20 07/18/18 01:52 07/18/18 05:19 07/18/18 07:34 Bedside Glucose 235 H 162 149 White Blood Count 10.5 Red Blood Count 3.33 L Hemoglobin 9.8 L Hematocrit 29.1 L Mean Corpuscular 87.4 Volume Mean Corpuscular 29.4 Hemoglobin Mean Corpuscular 33.7 Hemoglobin Concent Red Cell 11.7 Distribution Width Platelet Count 452 #H Mean Platelet Volume 9.8 Immature 0.700 H Granulocytes % Neutrophils % 51.4 Lymphocytes % 32.1 Monocytes % 10.1 Eosinophils % 5.1 Basophils % 0.6 Nucleated Red Blood 0.0 Cells % Immature 0.070 H Granulocytes # Neutrophils # 5.4 Lymphocytes # 3.4 H Monocytes # 1.1 H Eosinophils # 0.5 Basophils # 0.1 Nucleated Red Blood 0.0 Cells # Sodium Level 138 Potassium Level 3.7 Chloride Level 98 Carbon Dioxide Level 31 Anion Gap 9 Blood Urea Nitrogen 13 Creatinine 0.79 Est Glomerular > 60 Filtrat Rate mL/min Glucose Level 130 Calcium Level 9.1 Phosphorus Level 4.9 Magnesium Level 2.0 GRETCHEN MEADOWS MD Jul 18, 2018 17:45
== END 2018-07-18 11:08 | disposition home or self-care (01) | DRG 233 ==
LOC: SDS 06:24 → REC 09:24 → OBSVTOIN 10:01 → TEL 12:03 → OBSVTOIN 14:15 → INTOOBSV 14:15 → ICU 07-11 17:43 → 6WM 07-14 22:15
PROVIDERS: ADMIT Internal Medicine Cardiovascular Disease; ATTEND Hospitalist
PROC: 4A023N7 Measurement of Cardiac Sampling and Pressure, Left Heart, Percutaneous Approach (ICD-10-PCS; 2018-07-10)
PROC: B211YZZ Fluoroscopy of Multiple Coronary Arteries using Other Contrast (ICD-10-PCS; 2018-07-10)
PROC: 02100Z9 Bypass Coronary Artery, One Artery from Left Internal Mammary, Open Approach (ICD-10-PCS; 2018-07-11)
PROC: 5A1221Z Performance of Cardiac Output, Continuous (ICD-10-PCS; 2018-07-11)
PROC: 021209W Bypass Coronary Artery, Three Arteries from Aorta with Autologous Venous Tissue, Open Approach (ICD-10-PCS; principal; 2018-07-11 15:00)
DX: I25.110 Atherosclerotic heart disease of native coronary artery with unstable angina pectoris (principal); I50.33 Acute on chronic diastolic (congestive) heart failure; I11.0 Hypertensive heart disease with heart failure; Z68.32 Body mass index [BMI] 32.0-32.9, adult; E78.5 Hyperlipidemia, unspecified; N40.0 Benign prostatic hyperplasia without lower urinary tract symptoms; K21.9 Gastro-esophageal reflux disease without esophagitis; E11.9 Type 2 diabetes mellitus without complications; I25.2 Old myocardial infarction; R09.02 Hypoxemia; D50.0 Iron deficiency anemia secondary to blood loss (chronic); E66.9 Obesity, unspecified; Z79.4 Long term (current) use of insulin; Z95.5 Presence of coronary angioplasty implant and graft
CPT/HCPCS: 36592; 36600; 71045; 80048; 80053; 80061; 80307; 82803; 82962; 83036; 83735; 84100; 84132; 84443; 85014; 85025; 85610; 85730; 86850; 86900; 86901; 86920; 87081; 93005; 93306; 93458; 93880; 94002; 94003; 94770; 97110; 97116; 97163; 97530; 99217; G0378; J0171; J0690; J1170; J1644; J1650; J1815; J1885; J1940; J2001; J2250; J2260; J2370; J2405; J2440; J2720; J3010; J3370; J3475; J3480; J7030; J7040; J7070; P9047; Q9967

== ENCOUNTER 2018-08-06 13:11 | Observation (INO) | payer OTHER ==
[~2018-08-06] VITALS: Ht 175.3 cm; Wt 95.0 kg
[~2018-08-06 13:11] MED LIST changes: +ATOR40TA68 PO; +FAMO20TA18 PO; +FURO-110 PO; +HYDR-4011 PO; -LISI2.5T59 PO; +METO-429 PO; -OMEP20CA16 PO
--- NOTE | 2018-08-06 13:28 | ERD ---
ER Documentation Chief Complaint Chief Complaint cp onset 0500 today HPI The patient is a 53-year-old male, presenting to the ER because of right-sided chest pain that began around 5 AM today, described as stabbing and constant with dyspnea, worse with deep breathing. Denies similar symptoms previously, denies fever, chills, neck pain, abdominal pain, vomiting, dizzy, diarrhea. He used to smoke until 9 months ago Past medical history: BPH, dyslipidemia, diabetes mellitus, hypertension, CAD, history of CHF, GERD, BPH Past surgical history: Right shoulder arthroscopy, CABG on July 11, 2017, history of stent PCI, ROS All systems reviewed and are negative except as per history of present illness. Medications Home Meds Reported Medications Cholecalciferol* (Vitamin D3*) 1,000 Unit Tablet, 1000 UNIT PO DAILY, TAB 08/06/18 Metoprolol Succinate* (Toprol XL*) 25 Mg Tab.sr.24h, 25 MG PO DAILY, #30 TAB 08/06/18 Atorvastatin* (Atorvastatin*) 80 Mg Tablet, 80 MG PO QHS, #30 TAB 08/06/18 Furosemide* (Lasix*) 20 Mg Tablet, 20 MG PO DAILY, TAB 08/06/18 Metformin Hcl* (Metformin Hcl*) 1,000 Mg Tablet, 1000 MG PO WITH BREAKFAST DINNE, #60 TAB 08/06/18 Insulin Lispro (Humalog Kwikpen U-100) 100 Unit/1 Ml Insuln.pen, 15 UNIT SQ AC A, EA 08/06/18 Insulin Glargine* (Lantus*) 100 Unit/Ml Soln, 45 UNIT SC QAM, #1 VIAL 08/06/18 Gemfibrozil* (Gemfibrozil*) 600 Mg Tablet, 600 MG PO BID, TAB 08/06/18 Discontinued Reported Medications Tamsulosin Hcl* (Tamsulosin Hcl*) 0.4 Mg Cap.er.24h, 0.4 MG PO HS, CAP 10/09/17 Gemfibrozil* (Gemfibrozil*) 600 Mg Tablet, 600 MG PO BID, TAB 10/09/17 Aspirin (Aspir-Low) 81 Mg Tablet.dr, 81 MG PO DAILY 09/14/17 Icosapent Ethyl (VASCEPA) 1 Gm Capsule, 2 GM PO BID, CAP 09/14/17 Insulin Glargine* (Lantus*) 100 Unit/Ml Soln, 45 UNIT SC DAILY, #1 VIAL 09/14/17 Metformin Hcl* (Metformin Hcl*) 1,000 Mg Tablet, 1000 MG PO WITH BREAKFAST DINNE, #60 TAB 09/14/17 Gabapentin* (Gabapentin*) 300 Mg Capsule, 300 MG PO DAILY, #60 CAP 09/14/17 Ergocalciferol (Vitamin D2) (VITAMIN D2) 50,000 Unit Capsule, 55561 UNIT PO Q7D, CAP 09/14/17 Insulin Lispro (Humalog Kwikpen U-100) 100 Unit/1 Ml Insuln.pen, 10 UNIT SQ BEFO RE MEALS, EA 09/14/17 Discontinued Scripts Hydrocodone/Acetaminophen ([place] 5-325 Tablet) 1 Each Tablet, 1 EACH PO Q6 for 30 Days, TAB Prov:RAHI,DIMITRI S. 07/18/18 Furosemide* (Lasix*) 20 Mg Tablet, 20 MG PO DAILY, #30 TAB 3 Refills Prov:RAHI,DIMITRI S. 07/18/18 Famotidine* (Famotidine*) 20 Mg Tablet, 20 MG PO BID, #60 TAB 4 Refills Prov:RAHI,DIMITRI S. 07/18/18 Metoprolol Tartrate* (Lopressor*) 50 Mg Tab, 50 MG PO TID, #90 TAB 4 Refills Prov:RAHI,DIMITRI S. 07/18/18 Atorvastatin* (Atorvastatin*) 40 Mg Tablet, 40 MG PO HS, #30 TAB 4 Refills Prov:RAHI,DIMITRI S. 07/18/18 Allergies Allergies: Coded Allergies: No Known Allergies (Verified Allergy, Mild, 08/06/18) PMhx/Soc History of Surgery: Yes (RIGHT SHOULDER SX) Anesthesia Reaction: No Hx Neurological Disorder: No Hx Respiratory Disorders: No Hx Cardiac Disorders: Yes (HYPERTENSION, CAD, [place]) Hx Psychiatric Problems: No Hx Miscellaneous Medical Probl: No Hx Alcohol Use: Yes Hx Substance Use: No Hx Tobacco Use: No Physical Exam Vitals Vital Signs Date Temp Pulse Resp B/P (MAP) Pulse Ox O2 O2 Flow FiO2 Time Delivery Rate 08/06/18 98.3 84 17 112/81 100 Nasal 2.0 17:49 (91) Cannula 08/06/18 74 17 104/74 100 Nasal 2.0 15:24 (84) Cannula 08/06/18 73 17 106/78 100 Nasal 2.0 14:55 (87) Cannula 08/06/18 Nasal 2 13:33 Cannula 08/06/18 98.4 77 18 140/78 99 13:14 (98) Physical Exam Const: No acute distress. Head: Atraumatic. Eyes: Normal Conjunctiva. ENT: Normal External Ears, Nose and Mouth. Neck: Full range of motion. No meningismus. Resp: Clear to auscultation bilaterally. Cardio: Regular rate and rhythm. Abd: Soft, non distended, normal bowel sounds, non tender. Skin: No petechiae or rashes. Back: No midline or flank tenderness. Ext: No cyanosis, or edema. Neur: Awake and alert. No focal deficit Psych: Normal Mood and Affect. Result Diagram: 08/06/18 1356 08/06/18 1356 Results 24 hrs Laboratory Tests Test 08/06/18 13:56 White Blood Count 13.8 10^3/ul Red Blood Count 3.92 10^6/ul Hemoglobin 11.4 g/dl Hematocrit 34.2 % Mean Corpuscular Volume 87.2 fl Mean Corpuscular Hemoglobin 29.1 pg Mean Corpuscular Hemoglobin Concent 33.3 g/dl Red Cell Distribution Width 12.0 % Platelet Count 340 10^3/UL Mean Platelet Volume 9.4 fl Immature Granulocytes % 0.300 % Neutrophils % 67.0 % Lymphocytes % 21.5 % Monocytes % 8.3 % Eosinophils % 2.6 % Basophils % 0.3 % Nucleated Red Blood Cells % 0.0 /100WBC Immature Granulocytes # 0.040 10^3/ul Neutrophils # 9.2 10^3/ul Lymphocytes # 3.0 10^3/ul Monocytes # 1.1 10^3/ul Eosinophils # 0.4 10^3/ul Basophils # 0.0 10^3/ul Nucleated Red Blood Cells # 0.0 10^3/ul D-Dimer 1649.96 ng/ml D-Dimer Comment Sodium Level 139 mmol/L Potassium Level 4.3 mmol/L Chloride Level 104 mmol/L Carbon Dioxide Level 25 mmol/L Anion Gap 10 Blood Urea Nitrogen 10 mg/dl Creatinine 0.76 mg/dl Est Glomerular Filtrat Rate mL/min > 60 mL/min Glucose Level 193 mg/dl Calcium Level 9.5 mg/dl Troponin I < 0.012 ng/ml C-Reactive Protein 1.7 mg/dl Current Medications Medications Dose Sig/Stephan Start Time Status Last (Trade) Ordered Route PRN Stop Time Admin Dose Reason Admin Aspirin 324 mg ONCE ONCE 08/06/18 DC 08/06/18 (Aspirin) PO 14:00 13:43 08/06/18 14:01 0.5 inch ONCE ONCE 08/06/18 DC 08/06/18 Nitroglycerin TD 14:00 13:45 08/06/18 14:01 (Nitroglyceri n 2% Oint) 0.5 mg ONCE STAT 08/06/18 DC 08/06/18 Hydromorphone IV 15:01 15: HCl 08/06/18 15:03 (Dilaudid) Iohexol 100 ml @ STK-MED 08/06/18 DC ONCE .ROUTE 15:32 08/06/18 15:33 Sodium 100 ml @ STK-MED 08/06/18 DC Chloride ONCE .ROUTE 15:32 08/06/18 15:33 0.5 mg ONCE STAT 08/06/18 DC 08/06/18 Hydromorphone IV 16:51 17:01 HCl 08/06/18 16:52 (Dilaudid) IV Flush 3 ml PER 08/06/18 (NS 3 ml) PROTOCOL IV 18:30 1 tab Q5M PRN 08/06/18 Nitroglycerin SL .CHEST 18:30 PAIN (Nitroglyceri n (Sl Tab) 0.4 Mg) 650 mg Q6H PRN 08/06/18 Acetaminophen PO .PAIN 1-3 18:30 (Tylenol OR TEMP Tab) 1 tab Q6H PRN 08/06/18 Acetaminophen PO .PAIN 4-6 18:30 / Hydrocodone Bitart ([place] (5/325)) Morphine 2 mg Q4H PRN 08/06/18 Sulfate IV .PAIN 18:30 (morphine) 7-10 80 mg QHS PO 08/06/18 UNV Atorvastatin 21:00 Calcium (Lipitor) 1,000 unit DAILY PO 08/07/18 Cholecalcifer 09:00 ol (Vitamin D) Furosemide 20 mg DAILY PO 08/07/18 (Lasix) 09:00 Gemfibrozil 600 mg BID PO 08/06/18 UNV (Lopid) 21:00 Metoprolol 25 mg DAILY PO 08/07/18 Succinate 09:00 (Toprol Xl) Discontinue ONCE ONCE 08/06/18 Miscellaneous current oral XX 18:30 sulfonylur... 08/06/18 18:31 Information (* Miscellaneous Pharmacy Order) Insulin 30 units DAILY@199908/06/18 Glargine SC 20:00 (Lantus) Insulin 10 unit WITH MEALS 08/07/18 Aspart SC 08:00 (Novolog Insulin Pen) ONCE ONCE 08/06/18 Miscellaneous HYPOGLYCEMIA XX 18:30 PROTOCOL 08/06/18 18:31 Information w... (* Miscellaneous Pharmacy Order) Insulin NOVOLOG WITH MEALS 08/06/18 Aspart *MILD* BEDTIME SC 21:00 (Novolog ALGORITHM Insulin Pen) Enoxaparin 40 mg DAILY SC 08/07/18 Sodium 09:00 (Lovenox) 1 ea NOTE XX 08/06/18 Miscellaneous 18:30 Information Glucose 15 gm Q15M PRN 08/06/18 (Glutose) PO DECREASED 18:30 GLUCOSE Glucose 22.5 gm Q15M PRN 08/06/18 (Glutose) PO DECREASED 18:30 GLUCOSE Dextrose 25 ml Q15M PRN 08/06/18 (D50w IV DECREASED 18:30 Syringe) GLUCOSE Dextrose 50 ml Q15M PRN 08/06/18 (D50w IV DECREASED 18:30 Syringe) GLUCOSE Glucagon 1 mg Q15M PRN 08/06/18 (Glucagen) IM DECREASED 18:30 GLUCOSE Glucose 15 gm Q15M PRN 08/06/18 (Glutose) BUCCAL 18:30 DECREASED GLUCOSE Procedures/[place] [address] Radiology Main Line: [phone] DIAGNOSTIC IMAGING REPORT Patient: DOM IRVING : 1965 Age: 53 Sex: M MR #: [id number] DOS: 08/06/18 1331 Ordering MD: HEIDI VELOZ MD Location: E/R Room/Bed: PROCEDURE: XR Chest. CLINICAL INDICATION: Chest pain TECHNIQUE: Single portable view of the chest was obtained COMPARISON: CR CHEST 01/14/2018; SD DX CHEST 07/09/2014 FINDINGS: There is mild cardiomegaly. The patient is status post sternotomy. There is mild pulmonary vascular congestion. There are bilateral perihilar and lower lobe increased interstitial changes. There is no pleural effusion.. There is no pneumothorax. RPTAT: AA IMPRESSION: Mild cardiomegaly with pulmonary vascular congestion. .Zach King MD, MD Date Time Electronically viewed and signed by .Zach King MD, MD on 08/06/2018 14:2 1 .S/ CC: HEIDI VELOZ MD [id number] [place] [id number] Radiology Main Line: [phone] DIAGNOSTIC IMAGING REPORT Patient: DOM IRVING : 1965 Age: 53 Sex: M MR #: [id number] DOS: 08/06/18 0000 Ordering MD: HEIDI VELOZ MD Location: E/R Room/Bed: PROCEDURE: CTA Chest CLINICAL INDICATION: Chest pain TECHNIQUE: CTA of the chest with 95 cc Omnipaque-350 IV contrast. Coronal, sagittal and 3-D volume rendered reformatted images were obtained. One or more of the following dose reduction techniques were used: automated exposure contro l, adjustment of the mA and/or kV according to patient size, use of iterative reconstruction technique. DICOM images are available. CTDI 18.2 mGy, DLP 646 mGy-cm. COMPARISON: Chest x-ray, 08/06/2018 FINDINGS: Lungs: Small bilateral pleural effusions. Bibasilar atelectasis. No pneumothorax or acute infiltrate. Mild bilateral septal thickening, suggestive of interstitial pulmonary edema. No pulmonary nodule or mass. Cardiovascular: No pulmonary emboli. Mild cardiomegaly. Small pericardial effusion. Status post sternotomy and CABG. Coronary arterial and aortic atherosclerotic calcifications. No thoracic aortic aneurysm or dissection. Lymph nodes: No lymphadenopathy. Mediastinum: Small hiatal hernia. No mediastinal mass. Upper abdomen: Unremarkable. Musculoskeletal: Degenerative enthesopathy of the spine. IMPRESSION: 1. Mild cardiomegaly. Coronary arterial and aortic atherosclerotic calcifications. 2. Findings suggestive of interstitial pulmonary edema, as above. Small bilateral pleural effusions. Bibasilar atelectasis. 3. No evidence of pulmonary embolism. 4. No mass, lymphadenopathy, or acute infiltrate. 5. Small hiatal hernia. RPTAT: AAQQ .Walt Main MD, MD Date Time Electronically viewed and signed by .Walt Main MD, MD on 08/06/2018 16:19 .R/ CC: HEIDI VELOZ MD [id number] EKG: At 1:15 PM read by emergency physician Rate/Rhythm: Normal Sinus Rhythm 76 beats/min QRS, ST, T-waves: No ST elevation, inferior Q waves, lateral ST abnormality Impression: Abnormal EKG EKG: At 1:53 PM read by emergency physician Rate/Rhythm: Normal Sinus Rhythm 77 beats/min QRS, ST, T-waves: No ST elevation, inferior Q waves, lateral ST abnormality Impression: Abnormal EKG MEDICAL MAKING DECISION: The patient is a 53-year-old male with multiple cardiac risk factor, presenting with acute chest pain that is concerning for acute ACS and acute pulmonary embolism. He was treated with aspirin 325 mg p.o., half an inch of nitroglycerin ointment to the chest wall and Dilaudid 0.5 mg IV for pain due to chest pain with low blood pressure with good response The differential diagnoses considered include but are not limited to acute coronary syndrome, acute myocardial infarction, pericarditis, pulmonary embolism, aortic dissection, pneumonia, pleural effusion, pneumothorax, GERD, chest wall pain. Departure Diagnosis: Primary Impression: Chest pain Additional Impression: Anemia Condition: Stable Comments I discussed the findings with the patient. I discussed the patient with Dr. Cole at 3:30 PM, who was made aware of the lab, the treatment, the patient condition. The patient is admitted to [facility] Disclaimer: Inadvertent spelling and grammatical errors are likely due to EHR/dictation software use and do not reflect on the overall quality of patient care. Also, please note that the electronic time recorded on this note does not necessarily reflect the actual time of the patient encounter. HEIDI VELOZ MD August 06, 2018 13:28
[2018-08-06] MEDS ORDERED: ASPIRIN 81 MG TAB PO ONE (14:00)
[2018-08-06] MEDS ORDERED: NITROGLYCERIN 2% 1 GM OINT PKT TD ONE (14:00)
[2018-08-06] MEDS ORDERED: GEMF600T8 PO (14:35)
[2018-08-06] MEDS ORDERED: LANT3I SC (14:35)
[2018-08-06] MEDS ORDERED: FURO-110 PO (14:36)
[2018-08-06] MEDS ORDERED: METF100010 PO (14:36)
[2018-08-06] MEDS ORDERED: INSU100I12 SQ (14:36)
[2018-08-06] MEDS ORDERED: ATOR-2 PO (14:36)
[2018-08-06] MEDS ORDERED: METO-335 PO (14:37)
[2018-08-06] MEDS ORDERED: CHOL100062 PO (14:38)
[2018-08-06] MEDS ORDERED: HYDROmorphONE 0.5 MG/0.5 ML SYG IV STA ×2 (15:01→16:51)
[2018-08-06] MEDS ORDERED: SOD CHLORIDE 0.9% 100 ML ONE (15:32)
[2018-08-06] MEDS ORDERED: IOHEXOL 100 ML ONE (15:32)
--- NOTE | 2018-08-06 17:53 | HP ---
Date/Time of Note Date/Time of Note DATE: 08/06/18 TIME: 17:52 Assessment/Plan VTE Prophylaxis Pharmacological prophylaxis: LMWH Lines/Catheters IV [facility] Assessment/Plan Hospital Course 53-year-old male with comorbidities including triple-vessel coronary artery disease status post CABG x4 in June 2018, hypertension, diabetes mellitus type 2, and dyslipidemia who presented with sudden onset right-sided pleuritic chest pain, who will be admitted to inpatient setting for further treatment and evaluation. 1. Chest pain. -Etiology unclear. -Seems to be pleuritic in nature. -Provided the patient's extensive cardiac history, will rule out for any underlying ACS. -Obtain cardiology consult. 2. Leukocytosis -Most probably reactive. -Chest x-ray negative for any infiltrates. -The patient remains afebrile. 3. CAD, status post CABG x4. -Resume all cardiac medications. 4. Hypertension. -Resume antihypertensives. 5. Diabetes mellitus type II. -Hold metformin because of IV dye use. -Start the patient on sliding scale insulin along with pre-meal insulin and basal insulin. 6. Dyslipidemia. -Resume statins. 7. Acute on chronic diastolic heart failure. -Will continue diuresis. Plan: The patient will be admitted to inpatient telemetry floor. The patient will be started on a carbohydrate control, low-cholesterol diet. The patient will be started on DVT prophylaxis. The patient will remain a full code. Activities will be as tolerated. The rest of the patient's management will be based on the clinical course, inputs from consultants, and the results of diagnostic studies. Based on the patient's clinical presentation, he most probably requires at least 1 midnights stay for further management and evaluation of his clinical presentation. The patient was seen in collaboration with Dr. Cole. Result Diagram: 08/06/18 1356 08/06/18 1356 Results 24hrs Laboratory Tests Test 08/06/18 13:56 White Blood Count 13.8 #H Red Blood Count 3.92 L Hemoglobin 11.4 L Hematocrit 34.2 L Mean Corpuscular Volume 87.2 Mean Corpuscular Hemoglobin 29.1 Mean Corpuscular Hemoglobin Concent 33.3 Red Cell Distribution Width 12.0 Platelet Count 340 # Mean Platelet Volume 9.4 Immature Granulocytes % 0.300 Neutrophils % 67.0 Lymphocytes % 21.5 Monocytes % 8.3 Eosinophils % 2.6 Basophils % 0.3 Nucleated Red Blood Cells % 0.0 Immature Granulocytes # 0.040 H Neutrophils # 9.2 H Lymphocytes # 3.0 H Monocytes # 1.1 H Eosinophils # 0.4 Basophils # 0.0 Nucleated Red Blood Cells # 0.0 D-Dimer 1649.96 H D-Dimer Comment Sodium Level 139 Potassium Level 4.3 Chloride Level 104 Carbon Dioxide Level 25 Anion Gap 10 Blood Urea Nitrogen 10 Creatinine 0.76 Est Glomerular Filtrat Rate mL/min > 60 Glucose Level 193 Calcium Level 9.5 Troponin I < 0.012 C-Reactive Protein 1.7 H HPI/ROS Admit Date/Time Admit Date/Time Hx of Present Illness Reason for admission: Chest pain. Consultants 1. Bill Wray DO, Cardiology. 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 The patient verbalized that the chest pain woke him up from sleep. The patient verbalized the chest pain as right-sided. The patient described the chest pain as stabbing and sharp. The patient tried [place] with minimal help. Patient denied any associated nausea, vomiting, or diaphoresis. The patient verbalized that the chest pain was constant and increasing with deep inspiration. The patient denied any fevers or chills. In the emergency room, patient was noticed to have an elevated d-dimer. The patient underwent a CT pulmonary angiogram that was negative for any pulmonary embolism. The patient was noticed to have a WBC of 13.8. The patient was afebrile. Patient's initial set of troponins were negative. ROS Constitutional: no complaints Eyes: no complaints ENT: no complaints Respiratory: pleuritic pain Cardiovascular: chest pain Gastrointestinal: no complaints Genitourinary: no complaints Musculoskeletal: no complaints Skin: no complaints Neurologic: no complaints Endocrine: no complaints Lymphatic: no complaints Psychological: no complaints Immunologic: no complaints PMH/Family/Social Past Medical History 1. Hypertension. 2. CAD status post CABG. 3. Diabetes mellitus type 2. 4. Dyslipidemia. Coded Allergies: No Known Allergies (Verified Allergy, Mild, 08/06/18) Past Surgical History Past Surgical Hx: angioplasty, coronary bypass surgery, other Family History Significant Family History: no pertinent family hx Social History The patient lives at home with family. Alcohol Use: none Smoking Status: Former smoker Drug Use: none Exam/Review of Systems Vital Signs Vitals Vital Signs Date Temp Pulse Resp B/P (MAP) Pulse Ox O2 O2 Flow FiO2 Time Delivery Rate 08/06/18 74 17 104/74 100 Nasal 2.0 15:24 (84) Cannula 08/06/18 98.4 13:14 Exam Exam General: Adequately build 53 year-old male lying in bed in no apparent distress. HEENT: Normocephalic, atraumatic. Eyes: Anicteric sclerae, conjunctivae clear. ENT: Nasal septum midline, oral mucosa moist. Neck supple. Respiratory: Bilaterally diminished breath sounds. No use of accessory muscles of respiration. Cardiovascular: S1, S2 heard. Regular rate and rhythm. Sternotomy scar well healing. Abdomen: Soft, nontender, and nondistended. Bowel sounds positive in all 4 quadrants. Genitourinary: Deferred. Extremities: No cyanosis, no clubbing, no edema. Peripheral pulses palpable. Neurologic: Cranial nerves II through XII grossly intact. The patient is awake, alert, and oriented. Skin: Normal skin turgor. No skin rashes. Additional Comments CT Pulmonary Angiogram IMPRESSION: 1. Mild cardiomegaly. Coronary arterial and aortic atherosclerotic calcifications. 2. Findings suggestive of interstitial pulmonary edema, as above. Small bilateral pleural effusions. Bibasilar atelectasis. 3. No evidence of pulmonary embolism. 4. No mass, lymphadenopathy, or acute infiltrate. 5. Small hiatal hernia. RONA STALLWORTH NP August 06, 2018 17:53
[2018-08-06] MEDS ORDERED: FUROSEMIDE 40 MG INJ IV ONE (17:59)
[2018-08-06] MEDS ORDERED: NITROGLYCERIN (SL) 0.4 MG TAB SL PRN (18:30)
[2018-08-06] MEDS ORDERED: DEXTROSE 50% 50 ML SYRINGE IV PRN ×2 (18:30)
[2018-08-06] MEDS ORDERED: GLUCOSE GEL 15 GRAM TUBE BUCCAL PRN (18:30)
[2018-08-06] MEDS ORDERED: GLUCAGON 1 MG INJ IM PRN (18:30)
[2018-08-06] MEDS ORDERED: ACETAMINOPHEN 325 MG TAB PO PRN (18:30)
[2018-08-06] MEDS ORDERED: GLUCOSE GEL 15 GRAM TUBE PO PRN ×2 (18:30)
[2018-08-06] MEDS ORDERED: NACL 0.9% 3 ML SYG IV SCH (18:30)
[2018-08-06] MEDS ORDERED: HYDROCODONE/APAP (5/325) TAB PO PRN (18:30)
--- NOTE | 2018-08-06 18:38 | CONS ---
Assessment/Plan Cardiology NYHA: II Heart Failure Type: Acute Heart Failure Type: Diastolic Assessment/Plan Hospital Course (Demo Recall) Right-sided pleuritic chest pain Acute decompensated diastolic congestive heart failure Severe coronary artery disease status post CABG x4, [place] to LAD, SVG to PDA, SVG to diagonal artery sequenced to obtuse marginal artery June 2018 Preserved ejection fraction Hypertension Dyslipidemia Patient presents with right-sided sharp chest discomfort which began this morning. Patient symptoms are atypical for cardiac ischemia ECG with no significant ischemic abnormalities, initial cardiac enzymes are negative CT chest performed with no evidence of pulmonary emboli, patient with evidence of pulmonary vascular congestion We will start IV diuretics, check echocardiogram given recent open heart surgery Consultation Date/Type/Reason Admit Date/Time Type of Consult Cardiology Reason for Consultation Right-sided chest pain and shortness of breath Date/Time of Note DATE: 08/06/18 TIME: 18:33 Hx of Present Illness This is a 53-year-old male with history of coronary artery disease status post recent CABG in June 2018 who presents with right-sided chest pain. Chest pain is sharp in nature and began this morning. Pain is worse with deep inspiration. Patient also complains of exertional fatigue and shortness of breath. Denies paroxysmal nocturnal dyspnea. Denies fevers or chills or cough. Denies left- sided chest pain. Chest pain is positional and worse with inspiration as mentioned. No recent trauma to the chest 12 point review of systems was performed with all pertinent positives and negatives mentioned above and all else is negative Past Medical History Medical History: coronary artery disease, diabetes, high cholesterol, hypertension Home Meds Reported Medications Cholecalciferol* (Vitamin D3*) 1,000 Unit Tablet, 1000 UNIT PO DAILY, TAB 08/06/18 Metoprolol Succinate* (Toprol XL*) 25 Mg Tab.sr.24h, 25 MG PO DAILY, #30 TAB 08/06/18 Atorvastatin* (Atorvastatin*) 80 Mg Tablet, 80 MG PO QHS, #30 TAB 08/06/18 Furosemide* (Lasix*) 20 Mg Tablet, 20 MG PO DAILY, TAB 08/06/18 Metformin Hcl* (Metformin Hcl*) 1,000 Mg Tablet, 1000 MG PO WITH BREAKFAST DINNE, #60 TAB 08/06/18 Insulin Lispro (Humalog Kwikpen U-100) 100 Unit/1 Ml Insuln.pen, 15 UNIT SQ AC A, EA 08/06/18 Insulin Glargine* (Lantus*) 100 Unit/Ml Soln, 45 UNIT SC QAM, #1 VIAL 08/06/18 Gemfibrozil* (Gemfibrozil*) 600 Mg Tablet, 600 MG PO BID, TAB 08/06/18 Discontinued Reported Medications Tamsulosin Hcl* (Tamsulosin Hcl*) 0.4 Mg Cap.er.24h, 0.4 MG PO HS, CAP 10/09/17 Gemfibrozil* (Gemfibrozil*) 600 Mg Tablet, 600 MG PO BID, TAB 10/09/17 Aspirin (Aspir-Low) 81 Mg Tablet.dr, 81 MG PO DAILY 09/14/17 Icosapent Ethyl (VASCEPA) 1 Gm Capsule, 2 GM PO BID, CAP 09/14/17 Insulin Glargine* (Lantus*) 100 Unit/Ml Soln, 45 UNIT SC DAILY, #1 VIAL 09/14/17 Metformin Hcl* (Metformin Hcl*) 1,000 Mg Tablet, 1000 MG PO WITH BREAKFAST DINNE, #60 TAB 09/14/17 Gabapentin* (Gabapentin*) 300 Mg Capsule, 300 MG PO DAILY, #60 CAP 09/14/17 Ergocalciferol (Vitamin D2) (VITAMIN D2) 50,000 Unit Capsule, 70018 UNIT PO Q7D, CAP 09/14/17 Insulin Lispro (Humalog Kwikpen U-100) 100 Unit/1 Ml Insuln.pen, 10 UNIT SQ BEFORE MEALS, EA 09/14/17 Discontinued Scripts Hydrocodone/Acetaminophen (Spring 5-325 Tablet) 1 Each Tablet, 1 EACH PO Q6 for 30 Days, TAB Prov:RAHI,DIMITRI S. 07/18/18 Furosemide* (Lasix*) 20 Mg Tablet, 20 MG PO DAILY, #30 TAB 3 Refills Prov:RAHI,DIMITRI S. 07/18/18 Famotidine* (Famotidine*) 20 Mg Tablet, 20 MG PO BID, #60 TAB 4 Refills Prov:RAHI,DIMITRI S. 07/18/18 Metoprolol Tartrate* (Lopressor*) 50 Mg Tab, 50 MG PO TID, #90 TAB 4 Refills Prov:RAHI,DIMITRI S. 07/18/18 Atorvastatin* (Atorvastatin*) 40 Mg Tablet, 40 MG PO HS, #30 TAB 4 Refills Prov:DIMITRI [place] S. 07/18/18 Medications Current Medications IV Flush (NS 3 ml) 3 ml PER PROTOCOL IV ; Start 08/06/18 at 18:30 Nitroglycerin (Nitroglycerin (Sl Tab) 0.4 Mg) 1 tab Q5M PRN SL .CHEST PAIN; Start 08/06/18 at 18:30 Acetaminophen (Tylenol Tab) 650 mg Q6H PRN PO .PAIN 1-3 OR TEMP; Start 08/06/18 at 18:30 Acetaminophen/ Hydrocodone Bitart (Spring (5/325)) 1 tab Q6H PRN PO .PAIN 4-6; Start 08/06/18 at 18:30 Morphine Sulfate (morphine) 2 mg Q4H PRN IV .PAIN 7-10; Start 08/06/18 at 18:30 Atorvastatin Calcium (Lipitor) 80 mg QHS PO ; Start 08/06/18 at 21:00; Status UNV Cholecalciferol (Vitamin D) 1,000 unit DAILY PO ; Start 08/07/18 at 09:00 Furosemide (Lasix) 20 mg DAILY PO ; Start 08/07/18 at 09:00 Gemfibrozil (Lopid) 600 mg BID PO ; Start 08/06/18 at 21:00; Status UNV Metoprolol Succinate (Toprol Xl) 25 mg DAILY PO ; Start 08/07/18 at 09:00 Insulin Glargine (Lantus) 30 units DAILY@2000 SC ; Start 08/06/18 at 20:00 Insulin Aspart (Novolog Insulin Pen) 10 unit WITH MEALS SC ; Start 08/07/18 at 08:00 Insulin Aspart (Novolog Insulin Pen) NOVOLOG *MILD* ALGORITHM WITH MEALS BEDTIME SC ; Start 08/06/18 at 21:00 Enoxaparin Sodium (Lovenox) 40 mg DAILY SC ; Start 08/07/18 at 09:00 Miscellaneous Information 1 ea NOTE XX ; Start 08/06/18 at 18:30 Glucose (Glutose) 15 gm Q15M PRN PO DECREASED GLUCOSE; Start 08/06/18 at 18:30 Glucose (Glutose) 22.5 gm Q15M PRN PO DECREASED GLUCOSE; Start 08/06/18 at 1 8:30 Dextrose (D50w Syringe) 25 ml Q15M PRN IV DECREASED GLUCOSE; Start 08/06/18 at 18:30 Dextrose (D50w Syringe) 50 ml Q15M PRN IV DECREASED GLUCOSE; Start 08/06/18 at 18:30 Glucagon (Glucagen) 1 mg Q15M PRN IM DECREASED GLUCOSE; Start 08/06/18 at 18:30 Glucose (Glutose) 15 gm Q15M PRN BUCCAL DECREASED GLUCOSE; Start 08/06/18 at 18:30 Furosemide (Lasix) 40 mg BID DIURETICS IV ; Start 08/07/18 at 06:00; Status UNV Furosemide (Lasix) 40 mg 1759 ONCE IV ; Start 08/06/18 at 17:59; Stop 08/06/18 at 18:00; Status UNV Allergies: Coded Allergies: No Known Allergies (Verified Allergy, Mild, 08/06/18) Past Surgical History Past Surgical Hx: angioplasty, coronary bypass surgery, other Family History Significant Family History: no pertinent family hx Social History Alcohol Use: none Smoking Status: Current some day smoker Drug Use: none Exam/Review of Systems Vital Signs Vitals Vital Signs Date Temp Pulse Resp B/P (MAP) Pulse Ox O2 O2 Flow FiO2 Time Delivery Rate 08/06/18 98.3 84 17 112/81 100 Nasal 2.0 17:49 (91) Cannula Exam Constitutional: alert, oriented (No apparent distress) Head: normocephalic Respiratory: other (Coarse breath sounds bilaterally, no wheezing) Cardiovascular: regular rate and rhythm (S1-S2 heard) Gastrointestinal: soft, non-tender, bowel sounds Extremities: edema (Trace) Labs Result Diagram: 08/06/18 1356 08/06/18 1356 Results 24hrs Laboratory Tests Test 08/06/18 13:56 White Blood Count 13.8 #H Red Blood Count 3.92 L Hemoglobin 11.4 L Hematocrit 34.2 L Mean Corpuscular Volume 87.2 Mean Corpuscular Hemoglobin 29.1 Mean Corpuscular Hemoglobin Concent 33.3 Red Cell Distribution Width 12.0 Platelet Count 340 # Mean Platelet Volume 9.4 Immature Granulocytes % 0.300 Neutrophils % 67.0 Lymphocytes % 21.5 Monocytes % 8.3 Eosinophils % 2.6 Basophils % 0.3 Nucleated Red Blood Cells % 0.0 Immature Granulocytes # 0.040 H Neutrophils # 9.2 H Lymphocytes # 3.0 H Monocytes # 1.1 H Eosinophils # 0.4 Basophils # 0.0 Nucleated Red Blood Cells # 0.0 D-Dimer 1649.96 H D-Dimer Comment Sodium Level 139 Potassium Level 4.3 Chloride Level 104 Carbon Dioxide Level 25 Anion Gap 10 Blood Urea Nitrogen 10 Creatinine 0.76 Est Glomerular Filtrat Rate mL/min > 60 Glucose Level 193 Calcium Level 9.5 Troponin I < 0.012 C-Reactive Protein 1.7 H Imaging Imaging ECG demonstrates sinus rhythm at 77 bpm, inferior Q waves, nonspecific ST abnorm alities Medications Medications Current Medications IV Flush (NS 3 ml) 3 ml PER PROTOCOL IV ; Start 08/06/18 at 18:30 Nitroglycerin (Nitroglycerin (Sl Tab) 0.4 Mg) 1 tab Q5M PRN SL .CHEST PAIN; Start 08/06/18 at 18:30 Acetaminophen (Tylenol Tab) 650 mg Q6H PRN PO .PAIN 1-3 OR TEMP; Start 08/06/18 at 18:30 Acetaminophen/ Hydrocodone Bitart (Spring (5/325)) 1 tab Q6H PRN PO .PAIN 4-6; Start 08/06/18 at 18:30 Morphine Sulfate (morphine) 2 mg Q4H PRN IV .PAIN 7-10; Start 08/06/18 at 18:30 Atorvastatin Calcium (Lipitor) 80 mg QHS PO ; Start 08/06/18 at 21:00; Status UNV Cholecalciferol (Vitamin D) 1,000 unit DAILY PO ; Start 08/07/18 at 09:00 Furosemide (Lasix) 20 mg DAILY PO ; Start 08/07/18 at 09:00 Gemfibrozil (Lopid) 600 mg BID PO ; Start 08/06/18 at 21:00; Status UNV Metoprolol Succinate (Toprol Xl) 25 mg DAILY PO ; Start 08/07/18 at 09:00 Insulin Glargine (Lantus) 30 units DAILY@2000 SC ; Start 08/06/18 at 20:00 Insulin Aspart (Novolog Insulin Pen) 10 unit WITH MEALS SC ; Start 08/07/18 at 08:00 Insulin Aspart (Novolog Insulin Pen) NOVOLOG *MILD* ALGORITHM WITH MEALS BEDTIME SC ; Start 08/06/18 at 21:00 Enoxaparin Sodium (Lovenox) 40 mg DAILY SC ; Start 08/07/18 at 09:00 Miscellaneous Information 1 ea NOTE XX ; Start 08/06/18 at 18:30 Glucose (Glutose) 15 gm Q15M PRN PO DECREASED GLUCOSE; Start 08/06/18 at 18:30 Glucose (Glutose) 22.5 gm Q15M PRN PO DECREASED GLUCOSE; Start 08/06/18 at 18:30 Dextrose (D50w Syringe) 25 ml Q15M PRN IV DECREASED GLUCOSE; Start 08/06/18 at 18:30 Dextrose (D50w Syringe) 50 ml Q15M PRN IV DECREASED GLUCOSE; Start 08/06/18 at 18:30 Glucagon (Glucagen) 1 mg Q15M PRN IM DECREASED GLUCOSE; Start 08/06/18 at 18:30 Glucose (Glutose) 15 gm Q15M PRN BUCCAL DECREASED GLUCOSE; Start 08/06/18 at 18:30 Furosemide (Lasix) 40 mg BID DIURETICS IV ; Start 08/07/18 at 06:00; Status UNV Furosemide (Lasix) 40 mg 1759 ONCE IV ; Start 08/06/18 at 17:59; Stop 08/06/18 at 18:00; Status UNV Bill Wray DO August 06, 2018 18:38
[2018-08-06] MEDS: morphine 2 MG INJ IV PRN (19:19)
[2018-08-06] MEDS ORDERED: INSULIN GLARGINE [LANTus] (100 UNITS/ML) SYG SC SCH (20:00)
[2018-08-06] MEDS ORDERED: ATORVASTATIN 80 MG TAB PO SCH ×2 (21:00)
[2018-08-06] MEDS: INSULIN ASPART [NOVOLOG] 3 ML PEN SC SCH (21:00)
[2018-08-07 02:30] VITALS: Ht 175.3 cm; Wt 95.0 kg
[2018-08-07] MEDS: GEMFIBROZIL 600 MG TAB PO SCH ×2 (02:46→08:06)
[2018-08-07] MEDS: morphine 2 MG INJ IV PRN (02:51)
[2018-08-07 04:00] VITALS: PULSE 93
[2018-08-07 04:15] VITALS: BP 138/74; PULSE 76; RESP 18
[2018-08-07] MEDS ORDERED: FUROSEMIDE 40 MG INJ IV SCH (06:00)
[2018-08-07 07:22] VITALS: BP 121/71; PULSE 97; RESP 20
[2018-08-07] MEDS: INSULIN ASPART [NOVOLOG] 3 ML PEN SC SCH ×4 (07:53→12:00)
[2018-08-07 08:09] VITALS: PULSE 91
[2018-08-07] MEDS ORDERED: ASPIRIN 81 MG TAB PO SCH (09:00)
[2018-08-07] MEDS ORDERED: ENOXAPARIN 40 MG/0.4 ML SYG SC SCH (09:00)
[2018-08-07] MEDS ORDERED: CHOLECALCIFEROL 1,000 UNIT TAB PO SCH (09:00)
[2018-08-07] MEDS ORDERED: METOPROLOL (XL) 25 MG TAB PO SCH (09:00)
[2018-08-07] MEDS ORDERED: FUROSEMIDE 20 MG TAB PO SCH (09:00)
[2018-08-07 11:18] VITALS: BP 123/68; PULSE 89; RESP 20
--- NOTE | 2018-08-07 11:46 | DS ---
Date/Time of Note Date/Time of Note DATE: 08/07/18 TIME: 11:46 Discharge Summary Admission/Discharge Info Admit Date/Time August 06, 2018 at 15:36 Discharge Date/Time Discharge Diagnosis 1. Pleuritic chest pain. 2. Leukocytosis 3. CAD, status post CABG x4. 4. Hypertension. 5. Diabetes mellitus type II. 6. Dyslipidemia. 7. Acute on chronic diastolic heart failure. 8. Obesity. BMI 30.9 kg/m. Patient Condition: Stable Consults 1. Bill Wray DO, Cardiology. Procedures CTA Chest IMPRESSION: 1. Mild cardiomegaly. Coronary arterial and aortic atherosclerotic c alcifications. 2. Findings suggestive of interstitial pulmonary edema, as above. Small bilateral pleural effusions. Bibasilar atelectasis. 3. No evidence of pulmonary embolism. 4. No mass, lymphadenopathy, or acute infiltrate. 5. Small hiatal hernia. 2D Echocardiogram Conclusions: Normal left ventricular systolic function. Normal left ventricular cavity size. Mild concentric left ventricular hypertrophy. Ejection fraction is visually estimated at 55-60 %. Tissue Doppler/Mitral Doppler indices are consistent with impaired relaxation (Stage I diastolic dysfunction). Normal right ventricular size. Normal right ventricular systolic function. The left atrium is normal in size. The right atrium is normal in size. No significant valvular stenosis or regurgitation seen. Trivial pericardial effusion. Hx of Present Illness Reason for admission: Chest pain. Consultants 1. Bill Wray DO, Cardiology. 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 The patient verbalized that the chest pain woke him up from sleep. The patient verbalized the chest pain as right-sided. The patient described the chest pain as stabbing and sharp. The patient tried Salvo with minimal help. Patient denied any associated nausea, vomiting, or diaphoresis. The patient verbalized that the chest pain was constant and increasing with deep inspiration. The patient denied any fevers or chills. In the emergency room, patient was noticed to have an elevated d-dimer. The patient underwent a CT pulmonary angiogram that was negative for any pulmonary embolism. The patient was noticed to have a WBC of 13.8. The patient was af ebrile. Patient's initial set of troponins were negative. Hospital Course The patient was admitted to inpatient setting. A cardiology consult was obtained. The patient's serial troponins remained negative. The patient's CT pulmonary angiogram was negative for any PE. 2D echocardiogram showed preserved LVEF. The etiology of the patient's chest pain remains unclear. The patient's chest pain was pleuritic in nature. The patient's chest pain improved throughout the hospital course. The patient was noticed to have some leukocytosis on the labs done in the emergency room. The patient's leukocytosis improved during the hospital course. The patient remained afebrile without any clinical evidence of infectious process. The patient has a history of CAD and he is status post CABG x4 in June 2018. The patient was maintained on cardiac medications. The patient had evidence of acute on chronic diastolic heart failure. The patient was maintained on IV diuresis. The patient has underlying hypertension. The patient was maintained on antihypertensives. The patient has diabetes mellitus type 2. The patient's metformin was put on hold because of IV dye use. The patient was maintained on sliding scale insulin along with pre-meal insulin and basal insulin. He has underlying dyslipidemia. The patient was maintained on statins. However, the patient's statin dosing was decreased because of improvement in the patient's lipid panel. The patient will be discharged home on increased dose of diuretics for the next 3 days as per the recommendations of cardiology. The patient has been ruled out for any underlying ACS and the patient's chest pain has been controlled well. The patient was cleared by cardiology to be discharged. Discharge Instructions 1. Resume home medications. Take Lasix 40 mg daily for the next 3 days and go back to 20 mg daily afterwards. 2. Start taking metformin only from 08/09/2018 in the morning. 3. Start taking Lipitor 40 mg nightly instead of 80 mg. 4. Take a low-cholesterol, low carbohydrate diet. 5. Resume activities as tolerated. 6. Please follow-up with outpatient cardiology as scheduled. 7. Please go to the nearest emergency room if you have any significant chest pain, significant shortness of breath, or any other unusual signs/symptoms. The patient verbalized understanding of his discharge instructions. At this time I would like to thank Dr. Wray for seeing the patient and providing clinical recommendations. The patient was seen in collaboration with Dr. Cole. Home Meds Active Scripts Atorvastatin* (Atorvastatin*) 40 Mg Tablet, 40 MG PO QHS, #30 TAB Prov:RONA STALLWORTH BUSINESS EXCELLENCE MANAGER 08/07/18 Furosemide* (Lasix*) 20 Mg Tablet, 20 MG PO DAILY for 30 Days, TAB Take 40 mg daily for the next 3 days. Prov:RONA STALLWORTH BUSINESS EXCELLENCE MANAGER 08/07/18 Metformin Hcl* (Metformin Hcl*) 1,000 Mg Tablet, 1000 MG PO WITH BREAKFAST DINNE, #60 TAB Start taking only from 07/30/2018. Prov:RONA STALLWORTH BUSINESS EXCELLENCE MANAGER 08/07/18 Reported Medications Cholecalciferol* (Vitamin D3*) 1,000 Unit Tablet, 1000 UNIT PO DAILY, TAB 08/06/18 Metoprolol Succinate* (Toprol XL*) 25 Mg Tab.sr.24h, 25 MG PO DAILY, #30 TAB 08/06/18 Insulin Lispro (Humalog Kwikpen U-100) 100 Unit/1 Ml Insuln.pen, 15 UNIT SQ AC A, EA 08/06/18 Insulin Glargine* (Lantus*) 100 Unit/Ml Soln, 45 UNIT SC QAM, #1 VIAL 08/06/18 Gemfibrozil* (Gemfibrozil*) 600 Mg Tablet, 600 MG PO BID, TAB 08/06/18 Discontinued Reported Medications Atorvastatin* (Atorvastatin*) 80 Mg Tablet, 80 MG PO QHS, #30 TAB 08/06/18 Tamsulosin Hcl* (Tamsulosin Hcl*) 0.4 Mg Cap.er.24h, 0.4 MG PO HS, CAP 10/09/17 Gemfibrozil* (Gemfibrozil*) 600 Mg Tablet, 600 MG PO BID, TAB 10/09/17 Aspirin (Aspir-Low) 81 Mg Tablet.dr, 81 MG PO DAILY 09/14/17 Icosapent Ethyl (VASCEPA) 1 Gm Capsule, 2 GM PO BID, CAP 09/14/17 Insulin Glargine* (Lantus*) 100 Unit/Ml Soln, 45 UNIT SC DAILY, #1 VIAL 09/14/17 Metformin Hcl* (Metformin Hcl*) 1,000 Mg Tablet, 1000 MG PO WITH BREAKFAST DINNE, #60 TAB 09/14/17 Gabapentin* (Gabapentin*) 300 Mg Capsule, 300 MG PO DAILY, #60 CAP 09/14/17 Ergocalciferol (Vitamin D2) (VITAMIN D2) 50,000 Unit Capsule, 16128 UNIT PO Q7D, CAP 09/14/17 Insulin Lispro (Humalog Kwikpen U-100) 100 Unit/1 Ml Insuln.pen, 10 UNIT SQ BEFORE MEALS, EA 09/14/17 Discontinued Scripts Hydrocodone/Acetaminophen ([place] 5-325 Tablet) 1 Each Tablet, 1 EACH PO Q6 for 30 Days, TAB Prov:RAHI,DIMITRI S. 07/18/18 Furosemide* (Lasix*) 20 Mg Tablet, 20 MG PO DAILY, #30 TAB 3 Refills Prov:RAHI,DIMITRI S. 07/18/18 Famotidine* (Famotidine*) 20 Mg Tablet, 20 MG PO BID, #60 TAB 4 Refills Prov:RAHI,DIMITRI S. 07/18/18 Metoprolol Tartrate* (Lopressor*) 50 Mg Tab, 50 MG PO TID, #90 TAB 4 Refills Prov:RAHI,DIMITRI S. 07/18/18 Atorvastatin* (Atorvastatin*) 40 Mg Tablet, 40 MG PO HS, #30 TAB 4 Refills Prov:RAHI,DIMITRI S. 07/18/18 Follow-up Plan Follow-up with outpatient cardiology as scheduled. Primary Care Provider Not On Staff Doctor Time spent on discharge: > 30 minutes Pending Labs Laboratory Tests Test 08/06/18 13:56 08/06/18 21:47 08/07/18 00:10 08/07/18 02:05 White Blood 13.8 Count 10^3/ul (4.8-10 .8) Red Blood 3.92 Count 10^6/ul (4.70-6 .10) Hemoglobin 11.4 g/dl (14.0-18.0 ) Hematocrit 34.2 % (42.0-52.0) Mean 87.2 Corpuscular fl (82.0-101.0) Volume Mean 29.1 Corpuscular pg (29.0-33.0) Hemoglobin Mean 33.3 Corpuscular g/dl (32.0-37.0 Hemoglobin Conc ) ent Red Cell 12.0 Distribution % (11.5-14.5) Width Platelet Count 340 10^3/UL (140-41 5) Mean Platelet 9.4 Volume fl (7.4-10.4) Immature 0.300 Granulocytes % % (0.001-0.429) Neutrophils % 67.0 % (39.0-77.0) Lymphocytes % 21.5 % (15.0-51.0) Monocytes % 8.3 % (0.0-11.0) Eosinophils % 2.6 % (0.0-7.0) Basophils % 0.3 % (0.0-2.0) Nucleated Red 0.0 Blood Cells % /100WBC (0.0-0. 0) Immature 0.040 Granulocytes # 10^3/ul (0.0-0. 031) Neutrophils # 9.2 10^3/ul (1.6-7. 5) Lymphocytes # 3.0 10^3/ul (0.8-2. 9) Monocytes # 1.1 10^3/ul (0.3-0. 9) Eosinophils # 0.4 10^3/ul (0.0-0. 5) Basophils # 0.0 10^3/ul (0.0-0. 1) Nucleated Red 0.0 Blood Cells # 10^3/ul (0.0-0. 0) Erythrocyte 30 mm/Hr (0-20) Sedimentation Rate D-Dimer 1649.96 ng/ml (<460) D-Dimer Comment Sodium Level 139 mmol/L (135-144 ) Potassium 4.3 Level mmol/L (3.5-5.1 ) Chloride Level 104 mmol/L (97-110) Carbon Dioxide 25 Level mmol/L (21-31) Anion Gap 10 (5-13) Blood Urea 10 mg/dl (7-20) Nitrogen Creatinine 0.76 mg/dl (0.61-1.2 4) Est Glomerular > 60 Filtrat mL/min (>60) Rate mL/min Glucose Level 193 mg/dl (70-220) Calcium Level 9.5 mg/dl (8.4-10.2 ) Troponin I < 0.012 < 0.012 ng/ml (0.000-0. ng/ml (0.000-0 120) .120) C-Reactive 1.7 Protein mg/dl (0.0-0.9) B-Type 266 Natriuretic PG/ML (0-125) Peptide Creatine 30 Kinase IU/L (23-200) Creatine Kinase 1.1 Index Creatinine 0.34 Kinase MB ng/ml (0.0-2.4 (Mass) ) Bedside 124 117 Glucose mg/dL (70-220) mg/dL (70-220) Test 08/07/18 05:54 08/07/18 05:55 08/07/18 07:29 Sodium Level 140 mmol/L (135-144 ) Potassium 4.1 Level mmol/L (3.5-5.1 ) Chloride Level 102 mmol/L (97-110) Carbon Dioxide 25 Level mmol/L (21-31) Anion Gap 13 (5-13) Blood Urea 9 mg/dl (7-20) Nitrogen Creatinine 0.72 mg/dl (0.61-1.2 4) Est Glomerular > 60 Filtrat mL/min (>60) Rate mL/min Glucose Level 125 mg/dl (70-220) Calcium Level 9.4 mg/dl (8.4-10.2 ) Total 0.8 Bilirubin mg/dl (0.2-1.3) Direct 0.00 Bilirubin mg/dl (0.00-0.2 0) Indirect 0.8 Bilirubin mg/dl (0-1.1) Aspartate Amino 19 IU/L (15-46) Transf (AST/SGO T) Alanine 23 IU/L (13-69) Aminotransferas e (ALT/SGPT) Alkaline 93 Phosphatase IU/L (42-121) Total Protein 7.6 g/dl (6.1-8.1) Albumin 4.2 g/dl (3.3-4.9) Globulin 3.40 g/dl (1.3-3.2) Albumin/Globuli 1.23 n Ratio Triglycerides 141 Level mg/dl (0-149) Cholesterol 165 Level mg/dl (100-200) LDL 97 mg/dl Cholesterol, Calculated HDL 40 Cholesterol mg/dl (28-71) Cholesterol/HDL 4.1 RATIO Ratio White Blood 11.9 Count 10^3/ul (4.8-1 0.8) Red Blood 3.94 Count 10^6/ul (4.70- 6.10) Hemoglobin 11.3 g/dl (14.0-18. 0) Hematocrit 34.2 % (42.0-52.0) Mean 86.8 Corpuscular fl (82.0-101.0 Volume ) Mean 28.7 Corpuscular pg (29.0-33.0) Hemoglobin Mean 33.0 Corpuscular g/dl (32.0-37. Hemoglobin Conc 0) ent Red Cell 12.0 Distribution % (11.5-14.5) Width Platelet Count 317 10^3/UL (140-4 15) Mean Platelet 9.4 Volume fl (7.4-10.4) Immature 0.300 Granulocytes % % (0.001-0.429 ) Neutrophils % 57.1 % (39.0-77.0) Lymphocytes % 32.0 % (15.0-51.0) Monocytes % 9.0 % (0.0-11.0) Eosinophils % 1.3 % (0.0-7.0) Basophils % 0.3 % (0.0-2.0) Nucleated Red 0.0 Blood Cells % /100WBC (0.0-0 .0) Immature 0.040 Granulocytes # 10^3/ul (0.0-0 .031) Neutrophils # 6.8 10^3/ul (1.6-7 .5) Lymphocytes # 3.8 10^3/ul (0.8-2 .9) Monocytes # 1.1 10^3/ul (0.3-0 .9) Eosinophils # 0.2 10^3/ul (0.0-0 .5) Basophils # 0.0 10^3/ul (0.0-0 .1) Nucleated Red 0.0 Blood Cells # 10^3/ul (0.0-0 .0) Phosphorus 5.5 Level mg/dl (2.5-4.9 ) Magnesium 1.8 Level mg/dl (1.7-2.5 ) Creatine 25 Kinase IU/L (23-200) Creatine Kinase 0.9 Index Creatinine < 0.22 Kinase MB ng/ml (0.0-2.4 (Mass) ) Troponin I < 0.012 ng/ml (0.000-0 .120) Bedside 132 Glucose mg/dL (70-220) RONA STALLWORTH NP August 07, 2018 11:46
[2018-08-07] MEDS ORDERED: METF100010 PO (11:50)
[2018-08-07] MEDS ORDERED: FURO-110 PO (11:50)
--- NOTE | 2018-08-07 11:55 | PDOCDIS ---
Discharge Instructions CONDITION [id number] Patient Condition: [id number] Stable HOME CARE INSTRUCTIONS: [id number] Special Diet: [id number] Low carbohydrate, low cholesterol diet. FOLLOW UP/APPOINTMENTS Follow-up Plan 1. Dr. Wray, Cardiology. OTHER ORDERS: Other Orders: 1. Resume home medications. Take Lasix 40 mg daily for the next 3 days and go back to 20 mg daily afterwards. 2. Start taking metformin only from 08/09/2018 in the morning. 3. Start taking Lipitor 40 mg nightly instead of 80 mg. 4. Take a low-cholesterol, low carbohydrate diet. 5. Resume activities as tolerated. 6. Please follow-up with outpatient cardiology as scheduled. 7. Please go to the nearest emergency room if you have any significant chest pain, significant shortness of breath, or any other unusual signs/symptoms. RONA STALLWORTH NP August 07, 2018 11:55
[2018-08-07] MEDS ORDERED: ATOR40TA68 PO (11:56)
--- NOTE | 2018-08-07 12:12 | RADRPT ---
Echocardiogram Report [id number] : 1965 (53y 5m)Study Date: 08/07/2018 8:22:42 AM Gender: MAccession #: [id number] Tech: Jean Paul Zheng [facility] Location: [facility] Ref.Physician: BILL WRAY Height(Cm): BSA: Weight(Kg): Quality: AdequateOrder Physician: BILL WRAY Account #: Procedures: Echocardiographic Report: Transthoracic echocardiogram with complete 2D, M-Mode, and doppler examination. Indications: Evaluate Left Ventricular function. Measurements: 2D/M Mode Doppler Measurement Value Normal Range Measurement Value Normal Range LVIDd 2D 3.9 [ 4.2 - 5.8 ] cm AV Peak Shar 1.4 [ 100.0 - 170.0 ] cm/sec LVIDs 2D 2.7 [ 2.5 - 4.0 ] cm AV Peak PG 8.0 [ 2.0 - 9.0 ] mmHg LVPWd 2D 1.3 [ 0.6 - 1.0 ] cm LVOT Peak Shar 1.0 [ 70.0 - 110.0 ] cm/sec IVSd 2D 1.3 [ 0.6 - 1.0 ] cm LVOT Peak PG 4.0 [ 2.0 - 6.0 ] mmHg AoR Diam 2D 3.5 [ 2.6 - 3.4 ] cm MV E Peak Shar 0.7 [ 60.0 - 130.0 ] cm/sec EDV 2D 65.1 [ 62.0 - 150.0 ] ml MV A Peak Shar 0.8 [ 100.0 - 120.0 ] cm/sec ESV 2D 27.5 [ 21.0 - 61.0 ] ml MV E/A 0.8 [ 0.8 - 1.5 ] ratio EF 2D 57.8 [ 52.0 - 72.0 ] percent MV Decel Time 162 [ 104 - 258 ] msec LA Dimen 2D 3.6 [ 3.0 - 4.0 ] cm Lat E` Shar 0.1 [ 10.0 - 15.0 ] cm/sec Lateral E/E` 5.5 [ 1.0 - 2.0 ] ratio MV E/A 0.8 [ 0.8 - 1.5 ] ratio Findings: Left Ventricle: Normal left ventricular systolic function. Normal left ventricular cavity size. Mild concentric left ventricular hypertrophy. Ejection fraction is visually estimated at 55-60 %. Tissue Doppler/Mitral Doppler indices are consistent with impaired relaxation (Stage I diastolic dysfunction). Right Ventricle: Normal right ventricular size. Normal right ventricular systolic function. Left Atrium: The left atrium is normal in size. Right Atrium: The right atrium is normal in size. Mitral Valve: Mitral valve leaflets appear mildly thickened. Mild mitral annular calcification. Trace mitral regurgitation. Aortic Valve: Normal appearance of the aortic valve. No significant aortic stenosis or insufficiency. Tricuspid Valve: Normal appearance and function of the tricuspid valve with trace physiologic regurgitation. Pulmonic Valve: Pulmonic valve not well visualized. Pericardium: Trivial pericardial effusion. Aorta: Normal aortic root. IVC: Normal size and normal respiratory collapse consistent with normal right atrial pressure. Conclusions: Normal left ventricular systolic function. Normal left ventricular cavity size. Mild concentric left ventricular hypertrophy. Ejection fraction is visually estimated at 55-60 %. Tissue Doppler/Mitral Doppler indices are consistent with impaired relaxation (Stage I diastolic dysfunction). Normal right ventricular size. Normal right ventricular systolic function. The left atrium is normal in size. The right atrium is normal in size. No significant valvular stenosis or regurgitation seen. Trivial pericardial effusion. Electronically Signed By: Bill Wray 2018-08-07 12:12:11 PDT
--- NOTE | 2018-08-07 12:16 | CONS ---
Assessment/Plan Cardiology NYHA: II Heart Failure Type: Acute Heart Failure Type: Diastolic Assessment/Plan Hospital Course (Demo Recall) Right-sided pleuritic chest pain Acute decompensated diastolic congestive heart failure Severe coronary artery disease status post CABG x4, [place] to LAD, SVG to PDA, SVG to diagonal artery sequenced to obtuse marginal artery June 2018 Preserved ejection fraction Hypertension Dyslipidemia Shortness of breath improving, right-sided chest discomfort also improving Echocardiogram with no significant effusion and normal LV function With switch patient to p.o. Lasix from tomorrow. Would order magnesium supplementation Okay to DC home from a cardiac standpoint with continuing Lasix 40 mg p.o. daily for 5 days then decrease to 20 mg daily at that point forward Consultation Date/Type/Reason Admit Date/Time August 06, 2018 at 15:36 Initial Consult Date Type of Consult Cardiology Date/Time of Note DATE: 08/07/18 TIME: 12:14 24 HR Interval Summary Free Text/Dictation Feeling better, less shortness of breath. Right-sided chest discomfort still present but improved Exam/Review of Systems Vital Signs Vitals Vital Signs Date Temp Pulse Resp B/P (MAP) Pulse Ox O2 O2 Flow FiO2 Time Delivery Rate 08/07/18 98.0 89 20 123/68 94 Room Air 11:18 (86) 08/07/18 1.0 02:30 Intake and Output 08/06/18 08/06/18 08/07/18 1515:00 23:00 07:00 IntakeIntake Total 300 ml OutputOutput Total 650 ml BalanceBalance -350 ml Exam Constitutional: alert, oriented (No apparent distress) Head: normocephalic Respiratory: other (Coarse breath sounds bilaterally, no wheezing) Cardiovascular: regular rate and rhythm (S1-S2 heard) Gastrointestinal: soft, non-tender, bowel sounds Extremities: edema (Trace) Labs Result Diagram: 08/07/18 0555 08/07/18 0554 Results 24hrs Laboratory Tests Test 08/06/18 13:56 08/06/18 21:47 08/07/18 00:10 08/07/18 02:05 White Blood Count 13.8 #H Red Blood Count 3.92 L Hemoglobin 11.4 L Hematocrit 34.2 L Mean Corpuscular 87.2 Volume Mean Corpuscular 29.1 Hemoglobin Mean Corpuscular 33.3 Hemoglobin Concent Red Cell 12.0 Distribution Width Platelet Count 340 # Mean Platelet Volume 9.4 Immature 0.300 Granulocytes % Neutrophils % 67.0 Lymphocytes % 21.5 Monocytes % 8.3 Eosinophils % 2.6 Basophils % 0.3 Nucleated Red Blood 0.0 Cells % Immature 0.040 H Granulocytes # Neutrophils # 9.2 H Lymphocytes # 3.0 H Monocytes # 1.1 H Eosinophils # 0.4 Basophils # 0.0 Nucleated Red Blood 0.0 Cells # Erythrocyte 30 H Sedimentation Rate D-Dimer 1649.96 H D-Dimer Comment Sodium Level 139 Potassium Level 4.3 Chloride Level 104 Carbon Dioxide Level 25 Anion Gap 10 Blood Urea Nitrogen 10 Creatinine 0.76 Est Glomerular > 60 Filtrat Rate mL/min Glucose Level 193 Calcium Level 9.5 Troponin I < 0.012 < 0.012 C-Reactive Protein 1.7 H B-Type Natriuretic 266 H Peptide Creatine Kinase 30 Creatine Kinase 1.1 Index Creatinine Kinase MB 0.34 (Mass) Bedside Glucose 124 117 Test 08/07/18 05:54 08/07/18 05:55 08/07/18 07:29 Sodium Level 140 Potassium Level 4.1 Chloride Level 102 Carbon Dioxide Level 25 Anion Gap 13 Blood Urea Nitrogen 9 Creatinine 0.72 Est Glomerular > 60 Filtrat Rate mL/min Glucose Level 125 # Calcium Level 9.4 Total Bilirubin 0.8 Direct Bilirubin 0.00 Indirect Bilirubin 0.8 Aspartate Amino 19 Transf (AST/SGOT) Alanine 23 Aminotransferase (AL T/SGPT) Alkaline Phosphatase 93 Total Protein 7.6 Albumin 4.2 Globulin 3.40 H Albumin/Globulin 1.23 Ratio Triglycerides Level 141 Cholesterol Level 165 LDL Cholesterol, 97 Calculated HDL Cholesterol 40 Cholesterol/HDL 4.1 Ratio White Blood Count 11.9 H Red Blood Count 3.94 L Hemoglobin 11.3 L Hematocrit 34.2 L Mean Corpuscular 86.8 Volume Mean Corpuscular 28.7 L Hemoglobin Mean Corpuscular 33.0 Hemoglobin Concent Red Cell 12.0 Distribution Width Platelet Count 317 Mean Platelet Volume 9.4 Immature 0.300 Granulocytes % Neutrophils % 57.1 Lymphocytes % 32.0 Monocytes % 9.0 Eosinophils % 1.3 Basophils % 0.3 Nucleated Red Blood 0.0 Cells % Immature 0.040 H Granulocytes # Neutrophils # 6.8 Lymphocytes # 3.8 H Monocytes # 1.1 H Eosinophils # 0.2 Basophils # 0.0 Nucleated Red Blood 0.0 Cells # Phosphorus Level 5.5 H Magnesium Level 1.8 Creatine Kinase 25 Creatine Kinase 0.9 Index Creatinine Kinase MB < 0.22 (Mass) Troponin I < 0.012 Bedside Glucose 132 Medications Medications Current Medications IV Flush (NS 3 ml) 3 ml PER PROTOCOL IV ; Start 08/06/18 at 18:30 Nitroglycerin (Nitroglycerin (Sl Tab) 0.4 Mg) 1 tab Q5M PRN SL .CHEST PAIN; Start 08/06/18 at 18:30 Acetaminophen (Tylenol Tab) 650 mg Q6H PRN PO .PAIN 1-3 OR TEMP; Start 08/06/18 at 18:30 Acetaminophen/ Hydrocodone Bitart ([place] (5/325)) 1 tab Q6H PRN PO .PAIN 4-6; Start 08/06/18 at 18:30 Morphine Sulfate (morphine) 2 mg Q4H PRN IV .PAIN 7-10 Last administered on 08/06/18 19:19; Admin Dose 2 MG; Start 08/06/18 at 18:30 Cholecalciferol (Vitamin D) 1,000 unit DAILY PO Last administered on 08/07/18 08:05; Admin Dose 1,000 UNIT; Start 08/07/18 at 09:00 Gemfibrozil (Lopid) 600 mg BID PO Last administered on 08/07/18at 08:06; Admin Dose 600 MG; Start 08/06/18 at 21:00 Metoprolol Succinate (Toprol Xl) 25 mg DAILY PO Last administered on 08/07/18 08:06; Admin Dose 25 MG; Start 08/07/18 at 09:00 Insulin Glargine (Lantus) 30 units DAILY@2000 SC Last administered on 08/07/18at 01:13; Admin Dose 30 UNITS; Start 08/06/18 at 20:00 Insulin Aspart (Novolog Insulin Pen) 10 unit WITH MEALS SC Last administered on 08/07/18 08:08; Admin Dose 10 UNIT; Start 08/07/18 at 07:55 Insulin Aspart (Novolog Insulin Pen) NOVOLOG *MILD* ALGORITHM WITH MEALS BEDTIME SC ; Start 08/06/18 at 21:00 Enoxaparin Sodium (Lovenox) 40 mg DAILY SC Last administered on 08/07/18at 08:15; Admin Dose 40 MG; Start 08/07/18 at 09:00 Miscellaneous Information 1 ea NOTE XX ; Start 08/06/18 at 18:30 Glucose (Glutose) 15 gm Q15M PRN PO DECREASED GLUCOSE; Start 08/06/18 at 18:30 Glucose (Glutose) 22.5 gm Q15M PRN PO DECREASED GLUCOSE; Start 08/06/18 at 18:30 Dextrose (D50w Syringe) 25 ml Q15M PRN IV DECREASED GLUCOSE; Start 08/06/18 at 18:30 Dextrose (D50w Syringe) 50 ml Q15M PRN IV DECREASED GLUCOSE; Start 08/06/18 at 18:30 Glucagon (Glucagen) 1 mg Q15M PRN IM DECREASED GLUCOSE; Start 08/06/18 at 18:30 Glucose (Glutose) 15 gm Q15M PRN BUCCAL DECREASED GLUCOSE; Start 08/06/18 at 18:30 Furosemide (Lasix) 40 mg BID DIURETICS IV Last administered on 08/07/18at 05:42; Admin Dose 40 MG; Start 08/07/18 at 06:00 Atorvastatin Calcium (Lipitor) 40 mg QHS PO Last administered on 08/07/18at 02:47; Admin Dose 40 MG; Start 08/06/18 at 21:00 Aspirin (Aspirin) 81 mg DAILY PO Last administered on 08/07/18at 08:06; Admin Dose 81 MG; Start 08/07/18 at 09:00 Bill Wray DO August 07, 2018 12:16
[2018-08-07] MEDS ORDERED: MAGNESIUM SULFATE 2 GM/50 ML 50 ML IVPB ONE (12:30)
[2018-08-07 12:57] VITALS: PULSE 85
[2018-08-07] MEDS ORDERED: FUROSEMIDE 40 MG INJ IV ONE (14:00)
[2018-08-08] MEDS ORDERED: FUROSEMIDE 40 MG TAB PO SCH (09:00)
--- NOTE | 2018-08-09 14:49 | RADRPT ---
Vent Rate: 77 bpm RR Interval: 0 msec NE Interval: 166 msec QRS Duration: 74 msec QT Interval: 376 msec QTC Interval: 425 msec P-R-T [place]: 49 - 28 - 102 degrees Normal sinus rhythm Cannot rule out Inferior infarct , age undetermined Cannot rule out Anterior infarct , age undetermined T wave abnormality, consider lateral ischemia Abnormal ECG Electronically Signed By: [facility]
--- NOTE | 2018-08-09 14:50 | RADRPT ---
Vent Rate: 76 bpm RR Interval: 0 msec PA Interval: 160 msec QRS Duration: 78 msec QT Interval: 376 msec QTC Interval: 423 msec P-R-T [place]: 38 - 30 - 94 degrees Normal sinus rhythm Cannot rule out Inferior infarct , age undetermined Cannot rule out Anterior infarct , age undetermined Abnormal ECG Electronically Signed By: [facility]
== END 2018-08-07 13:50 | disposition home or self-care (01) ==
LOC: E/R 13:11 → TEL 15:36 → 6WM 08-07 02:11
PROVIDERS: ADMIT Internal Medicine; ATTEND Internal Medicine
DX: R07.9 Chest pain, unspecified (principal); N40.0 Benign prostatic hyperplasia without lower urinary tract symptoms; E78.5 Hyperlipidemia, unspecified; I11.0 Hypertensive heart disease with heart failure; I50.9 Heart failure, unspecified; E11.9 Type 2 diabetes mellitus without complications; K21.9 Gastro-esophageal reflux disease without esophagitis; I25.10 Atherosclerotic heart disease of native coronary artery without angina pectoris; Z95.5 Presence of coronary angioplasty implant and graft; Z95.1 Presence of aortocoronary bypass graft; Z79.4 Long term (current) use of insulin; Z79.82 Long term (current) use of aspirin
CPT/HCPCS: 71045; 71275; 80048; 80053; 80061; 82550; 82553; 82962; 83735; 83880; 84100; 84484; 85025; 85378; 85651; 86140; 87081; 93005; 93306; 96374; J1170; J1650; J1815; J1940; J2270; Q9967; Z7500; Z7502; Z7610; G0378

== ENCOUNTER 2018-08-28 21:57 | Inpatient (IN) | payer OTHER ==
[~2018-08-28] VITALS: Ht 162.6 cm; Wt 93.8 kg
[~2018-08-28 21:57] MED LIST changes: -ASPI81TA50 PO; +CHOL100062 PO; -ERGO500013 PO; -FAMO20TA18 PO; -GABA300C16 PO; -HYDR-4011 PO; -ICOS1CAP PO; +METO-335 PO; -METO-429 PO; -TAMS0.4C2 PO
[2018-08-28 22:02] VITALS: Ht 162.6 cm; Wt 93.8 kg
[2018-08-29] VITALS (8 sets, daily range): BP systolic 112–121; BP diastolic 68–77; PULSE 64–101; RESP 18–20
[2018-08-29] MEDS ORDERED: ACETAMINOPHEN 325 MG TAB PO PRN ×2 (01:00→02:30)
[2018-08-29] MEDS ORDERED: ONDANSETRON 4 MG INJ IV PRN ×2 (01:00→02:30)
[2018-08-29] MEDS ORDERED: morphine 4 MG/ML VIAL IV STA (01:13)
--- NOTE | 2018-08-29 01:45 | ERD ---
ER Documentation Chief Complaint Chief Complaint CP since yesterday; had CABG a month ago HPI This is a 53-year-old male with chest pain since yesterday. Patient CABG approximately 6 weeks ago. Pain is mild to moderate intensity no exacerbating living factors. Worse when he lays down. No nausea vomiting fevers no chills. No shortness of breath. ROS All systems reviewed and are negative except as per history of present illness. Medications Home Meds Active Scripts Atorvastatin* (Atorvastatin*) 40 Mg Tablet, 40 MG PO QHS, #30 TAB Prov:RONA STALLWORTH NP 08/07/18 Furosemide* (Lasix*) 20 Mg Tablet, 20 MG PO DAILY for 30 Days, TAB Take 40 mg daily for the next 3 days. Prov:RONA STALLWORTH NP 08/07/18 Metformin Hcl* (Metformin Hcl*) 1,000 Mg Tablet, 1000 MG PO WITH BREAKFAST DINNE, #60 TAB Start taking only from 07/30/2018. Prov:RONA STALLWORTH NP 08/07/18 Reported Medications Cholecalciferol* (Vitamin D3*) 1,000 Unit Tablet, 1000 UNIT PO DAILY, TAB 08/06/18 Metoprolol Succinate* (Toprol XL*) 25 Mg Tab.sr.24h, 25 MG PO DAILY, #30 TAB 08/06/18 Insulin Lispro (Humalog Kwikpen U-100) 100 Unit/1 Ml Insuln.pen, 15 UNIT SQ AC A, EA 08/06/18 Insulin Glargine* (Lantus*) 100 Unit/Ml Soln, 45 UNIT SC QAM, #1 VIAL 08/06/18 Gemfibrozil* (Gemfibrozil*) 600 Mg Tablet, 600 MG PO BID, TAB 08/06/18 Allergies Allergies: Coded Allergies: No Known Allergies (Verified Allergy, Mild, 08/06/18) PMhx/Soc History of Surgery: Yes (CABG 07/11/2018;RIGHT SHOULDER SURGERY;) Anesthesia Reaction: No Hx Neurological Disorder: No Hx Respiratory Disorders: No Hx Cardiac Disorders: Yes (3 VESSELS CAD;HTN;DYSLIPIDEMIA;) Hx Psychiatric Problems: No Hx Miscellaneous Medical Probl: No Hx Alcohol Use: Yes (OCCASIONALLY;) Hx Substance Use: No Hx Tobacco Use: Yes Smoking Status: Former smoker Physical Exam Vitals Vital Signs Date Temp Pulse Resp B/P (MAP) Pulse Ox O2 O2 Flow FiO2 Time Delivery Rate 08/28/18 98.7 115 20 130/81 97 22:02 (97) Physical Exam Const: No acute distress Head: Atraumatic Eyes: Normal Conjunctiva ENT: Normal External Ears, Nose and Mouth. Neck: Full range of motion. No meningismus. Resp: Clear to auscultation bilaterally Cardio: Regular rate and rhythm, no murmurs Abd: Soft, non tender, non distended. Normal bowel sounds Skin: No petechiae or rashes Back: No midline or flank tenderness Ext: No cyanosis, or edema Neur: Awake and alert Psych: Normal Mood and Affect Result Diagram: 08/28/18 2312 08/28/18 2312 Results 24 hrs Laboratory Tests Test 08/28/18 23:12 White Blood Count 15.9 10^3/ul Red Blood Count 4.69 10^6/ul Hemoglobin 13.3 g/dl Hematocrit 39.5 % Mean Corpuscular Volume 84.2 fl Mean Corpuscular Hemoglobin 28.4 pg Mean Corpuscular Hemoglobin Concent 33.7 g/dl Red Cell Distribution Width 12.3 % Platelet Count 366 10^3/UL Mean Platelet Volume 9.7 fl Immature Granulocytes % 0.400 % Neutrophils % 68.7 % Lymphocytes % 22.0 % Monocytes % 8.0 % Eosinophils % 0.6 % Basophils % 0.3 % Nucleated Red Blood Cells % 0.0 /100WBC Immature Granulocytes # 0.060 10^3/ul Neutrophils # 11.0 10^3/ul Lymphocytes # 3.5 10^3/ul Monocytes # 1.3 10^3/ul Eosinophils # 0.1 10^3/ul Basophils # 0.0 10^3/ul Nucleated Red Blood Cells # 0.0 10^3/ul Sodium Level 138 mmol/L Potassium Level 4.4 mmol/L Chloride Level 101 mmol/L Carbon Dioxide Level 25 mmol/L Anion Gap 12 Blood Urea Nitrogen 14 mg/dl Creatinine 0.85 mg/dl Est Glomerular Filtrat Rate mL/min > 60 mL/min Glucose Level 159 mg/dl Calcium Level 9.9 mg/dl Troponin I 0.041 ng/ml Current Medications Medications Dose Sig/Stephan Start Time Status Last (Trade) Ordered Route PRN Stop Time Admin Dose Reason Admin Ondansetron 4 mg ER BRIDGE 08/29/18 HCl (Zofran PRN IV 01:00 08/30/18 Inj) NAUSEA/VOMITI 00:59 NG 650 mg ER BRIDGE 08/29/18 Acetaminophen PRN PO 01:00 08/30/18 (Tylenol .MILD PAIN 00:59 Tab) 1-3 OR TEMP Morphine 4 mg ONCE STAT 08/29/18 DC Sulfate IV 01:13 08/29/18 (morphine) 01:14 Procedures/MDM EKG: Rate/Rhythm: [Normal Sinus Rhythm] QRS, ST, T-waves: [No changes consistent w/ acute ischemia] Impression: [No evidence of ischemia or arrhythmia] Chest X-ray 1V Interpreted by me: Soft Tissue: No acute abnormalities Bones: No acute abnormalities Mediastinum/Cardiac Silhouette/Lungs: [No acute abnormalities] Patient's symptoms are concerning for cardiac cause will require inpatient workup and continuous monitoring. Further w/u for ischemia, arrhythmia, PE or dissection will be deferred to the inpatient team. Accepting Care Team: Current data and ongoing care discussed. Time: 1 AM Primary Provider: Hospitalist Consulting: Deferred to inpatient team Outstanding Data: none Departure Diagnosis: Primary Impression: Chest pain Chest pain type: unspecified Qualified Codes: R07.9 - Chest pain, unspecified Condition: GUY Dueñas Aug 29, 2018 01:45
[2018-08-29] MEDS ORDERED: HYDROCODONE/APAP (5/325) TAB PO PRN (02:30)
[2018-08-29] MEDS ORDERED: DOCUSATE SODIUM 100 MG CAP PO PRN (02:30)
[2018-08-29] MEDS ORDERED: NITROGLYCERIN (SL) 0.4 MG TAB SL PRN (02:30)
[2018-08-29] MEDS ORDERED: NACL 0.9% 3 ML SYG IV SCH (02:30)
[2018-08-29] MEDS ORDERED: LORAZEPAM 2 MG INJ IV PRN (02:30)
[2018-08-29] MEDS ORDERED: hydrALAzine 20 MG INJ IV PRN (02:30)
[2018-08-29] MEDS ORDERED: MAGNESIUM HYDROXIDE 30ML CUP PO PRN (02:30)
[2018-08-29] MEDS ORDERED: ALBUTEROL/IPRATROPIUM (NEB) 3 ML AMP HHN PRN (02:30)
[2018-08-29] MEDS ORDERED: NON-FORMULARY/PATIENT OWN MED (Insulin Lispro (Humalog Kwikpen U-100) 15 UNIT) SQ SCH (02:30)
--- NOTE | 2018-08-29 04:38 | HP ---
Date/Time of Note Date/Time of Note DATE: 08/29/18 TIME: 04:35 Assessment/Plan VTE Prophylaxis SCD applied (from Nsg): No SCD contraindicated: other Pharmacological prophylaxis: heparin Lines/Catheters IV Catheter Type (from Nrsg): Saline Lock Assessment/Plan Hospital Course 53-year-old male past medical history of coronary artery bypass grafting, [place] x2, diabetes, hypertension, BPH, diastolic heart failure, high cholesterol who presents with chest pain. 1. Chest pain: Given patient's history of IN x2 and CABG, concern for rule out ACS -Check TSH, A1c, lipid panel and trend his troponins every 6 hours x2 more, and will obtain cardiology consult -Keep patient on high-dose aspirin, morphine, oxygen, nitroglycerin -Resume patient's home blood pressure medications 2. High cholesterol: Continues gemfibrozil and atorvastatin, follow-up with panel 3. Diabetes: Follow-up A1c, continue sliding scale and home insulins 4. History of diastolic heart failure: Continue current cardiac medications, follow-up recommendations from cardiology consult 5. Hypertension: See #1 6. BPH: Continue current medications, monitor Result Diagram: 08/28/18 2312 08/28/18 2312 Results 24hrs Laboratory Tests Test 08/28/18 23:12 08/29/18 01:43 08/29/18 03:51 White Blood Count 15.9 #H Red Blood Count 4.69 L Hemoglobin 13.3 L Hematocrit 39.5 L Mean Corpuscular Volume 84.2 Mean Corpuscular Hemoglobin 28.4 L Mean Corpuscular Hemoglobin Concent 33.7 Red Cell Distribution Width 12.3 Platelet Count 366 Mean Platelet Volume 9.7 Immature Granulocytes % 0.400 Neutrophils % 68.7 Lymphocytes % 22.0 Monocytes % 8.0 Eosinophils % 0.6 Basophils % 0.3 Nucleated Red Blood Cells % 0.0 Immature Granulocytes # 0.060 H Neutrophils # 11.0 H Lymphocytes # 3.5 H Monocytes # 1.3 H Eosinophils # 0.1 Basophils # 0.0 Nucleated Red Blood Cells # 0.0 Sodium Level 138 Potassium Level 4.4 Chloride Level 101 Carbon Dioxide Level 25 Anion Gap 12 Blood Urea Nitrogen 14 Creatinine 0.85 Est Glomerular Filtrat Rate mL/min > 60 Glucose Level 159 Calcium Level 9.9 Troponin I 0.041 0.037 Free Thyroxine 1.22 Bedside Glucose 121 Creatine Kinase 30 Creatine Kinase Index 0.7 Creatinine Kinase MB (Mass) < 0.22 HPI/ROS Admit Date/Time Admit Date/Time Hx of Present Illness 53-year-old male past medical history of coronary artery bypass grafting, [place] x2, diabetes, hypertension, BPH, diastolic heart failure, high cholesterol who presents with chest pain. Patient states the symptoms have been going on for the last 3 to 4 days. He had some nausea symptoms and one episode of nonbilious nonbloody vomiting as well. Denies any smoking history now, no diarrhea constipation, upper or lower GI bleeding, fevers or chills. Patient was here in the hospital in June and at that time had CABG performed. PMH/Family/Social Past Medical History Medications Current Medications Ondansetron HCl (Zofran Inj) 4 mg ER BRIDGE PRN IV NAUSEA/VOMITING Last administered on 08/29/18at 01:47; Admin Dose 4 MG; Start 08/29/18 at 01:00; Stop 08/30/18 at 00:59 Acetaminophen (Tylenol Tab) 650 mg ER BRIDGE PRN PO .MILD PAIN 1-3 OR TEMP; Start 08/29/18 at 01:00; Stop 08/30/18 at 00:59 IV Flush (NS 3 ml) 3 ml PER PROTOCOL IV ; Start 08/29/18 at 02:30 Ondansetron HCl (Zofran Inj) 4 mg Q6H PRN IV NAUSEA/VOMITING; Start 08/29/18 at 02:30 Acetaminophen (Tylenol Tab) 650 mg Q6H PRN PO .PAIN 1-3 OR TEMP; Start 08/29/18 at 02:30 Acetaminophen/ Hydrocodone Bitart ([place] (5/325)) 1 tab Q6H PRN PO .MOD PAIN 4- 6; Start 08/29/18 at 02:30 Morphine Sulfate (morphine) 2 mg Q4H PRN IV .SEVERE PAIN 7-10; Start 08/29/18 at 02:30 Docusate Sodium (Colace) 100 mg Q12H PRN PO .CONSTIPATION; Start 08/29/18 at 02:30 Magnesium Hydroxide (Milk Of Mag) 30 ml DAILY PRN PO .CONSTIPATION; Start 08/29/18 at 02:30 Heparin Sodium (Porcine) (Heparin (5000 Units/1ml)) 5,000 unit Q12 SC ; Start 08/29/18 at 09:00 Lorazepam (Ativan) 0.5 mg Q6H PRN IV ANXIETY; Start 08/29/18 at 02:30 Albuterol/ Ipratropium (Duoneb) 3 ml Q4H RESP THERAPY PRN HHN SHORTNESS OF BREATH; Start 08/29/18 at 02:30 Hydralazine HCl (Apresoline) 10 mg Q6H PRN IV ELEVATED BLOOD PRESSURE; Start 08/29/18 at 02:30 Nitroglycerin (Nitroglycerin (Sl Tab) 0.4 Mg) 1 tab Q5M PRN SL ANGINA; Start 08/29/18 at 02:30 Aspirin (Ecotrin) 325 mg DAILY PO ; Start 08/29/18 at 09:00 Diagnostic Test (Pha) (Accu-Chek) 1 ea 02 XX ; Start 08/30/18 at 02:00 Insulin Aspart (Novolog Insulin Pen) NOVOLOG *MILD* ALGORI... Q4 SC ; Start 08/29/18 at 05:00 Atorvastatin Calcium (Lipitor) 40 mg QHS PO ; Start 08/29/18 at 21:00 Cholecalciferol (Vitamin D) 1,000 unit DAILY PO ; Start 08/29/18 at 09:00 Furosemide (Lasix) 20 mg DAILY PO ; Start 08/29/18 at 09:00 Gemfibrozil (Lopid) 600 mg BID PO ; Start 08/29/18 at 09:00 Insulin Glargine (Lantus) 45 units QAM SC ; Start 08/29/18 at 09:00 Metoprolol Succinate (Toprol Xl) 25 mg DAILY PO ; Start 08/29/18 at 09:00 Miscellaneous Information 15 unit AC A SQ ; Start 08/29/18 at 02:30; Status UNV Coded Allergies: No Known Allergies (Verified Allergy, Mild, 08/29/18) Past Surgical History Past Surgical Hx: angioplasty, coronary bypass surgery, other (Shoulder surgery) Family History Significant Family History: no pertinent family hx Social History Alcohol Use: occasionally Smoking Status: Former smoker Drug Use: none Exam/Review of Systems Vital Signs Vitals Vital Signs Date Temp Pulse Resp B/P (MAP) Pulse Ox O2 O2 Flow FiO2 Time Delivery Rate 08/29/18 92 17 121/82 96 Room Air 01:15 (95) 08/28/18 98.7 22:02 Exam Exam GENERAL: lying in bed, no acute distress HEENT: Pupils equal, round, and reactive to light. EOMI. NECK: Supple LUNGS: Clear to auscultation bilaterally, no rales, wheezes or rhonchi. HEART: Regular rate and rhythm, no murmurs, clicks, rubs or gallops. ABDOMEN: Soft, NT, non-distended. Positive bowel sounds in all four quadrants. No rebound or guarding. EXTREMITIES: No lower extremity edema bilaterally NEURO: No focal deficits DIMITRI APPLE Aug 29, 2018 04:38
[2018-08-29] MEDS: INSULIN ASPART [NOVOLOG] 3 ML PEN SC SCH ×5 (05:00→20:34)
[2018-08-29] MEDS: METOPROLOL (XL) 25 MG TAB PO SCH (08:51)
[2018-08-29] MEDS: GEMFIBROZIL 600 MG TAB PO SCH ×2 (08:52→20:24)
[2018-08-29] MEDS: FUROSEMIDE 20 MG TAB PO SCH (08:52)
[2018-08-29] MEDS: CHOLECALCIFEROL 1,000 UNIT TAB PO SCH (08:52)
[2018-08-29] MEDS ORDERED: ASPIRIN (EC) 325 MG TAB PO SCH (09:00)
[2018-08-29] MEDS: HEPARIN 5,000 UNIT/1 ML VIAL SC SCH ×2 (09:07→20:46)
[2018-08-29] MEDS: INSULIN GLARGINE [LANTus] (100 UNITS/ML) SYG SC SCH (09:23)
--- NOTE | 2018-08-29 12:44 | CONS ---
Assessment/Plan Assessment/Plan Hospital Course (Demo Recall) Chest wall pain Leukocytosis Severe coronary artery disease status post CABG x4, [place] to LAD, SVG to PDA, SVG to diagonal artery sequenced to obtuse marginal artery June 2018 Preserved ejection fraction Hypertension Dyslipidemia Possible diabetes Patient presents with positional chest wall pain as well as pain with inspiration and pushing along the surgical incision site from his CABG June 2018. Chest pain is nonexertional. Serial cardiac enzymes are negative He does have leukocytosis. Discussed with CT surgery, would need to rule out sternal infection, will check CT chest, given his respiratory pain as well, would use IV contrast to rule out pulmonary emboli concurrently Will do echocardiogram to rule out pericardial effusion Consultation Date/Type/Reason Admit Date/Time Type of Consult Cardiology Reason for Consultation Chest pain Date/Time of Note DATE: 08/29/18 TIME: 12:35 Hx of Present Illness This is a 53-year-old male with past medical history of CAD with CABG recently, hypertension who presents with chest pain. Chest pain is positional when he lies on his left side as well as pushing on his incision site of the sternum. Chest pain is also exacerbated by deep inspiration. Chest pain is not exertional. He denies shortness of breath. Does complain of nausea and sweaty with vomiting. 12 point review of systems was performed with all pertinent positives and negatives mentioned above and all else is negative Past Medical History Medical History: coronary artery disease, diabetes, high cholesterol, hyp ertension Home Meds Active Scripts Atorvastatin* (Atorvastatin*) 40 Mg Tablet, 40 MG PO QHS, #30 TAB Prov:RONA STALLWORTH NP 08/07/18 Furosemide* (Lasix*) 20 Mg Tablet, 20 MG PO DAILY for 30 Days, TAB Take 40 mg daily for the next 3 days. Prov:RONA STALLWORTH NP 08/07/18 Metformin Hcl* (Metformin Hcl*) 1,000 Mg Tablet, 1000 MG PO WITH BREAKFAST DINNE, #60 TAB Start taking only from 07/30/2018. Prov:RONA STALLWORTH NP 08/07/18 Reported Medications Cholecalciferol* (Vitamin D3*) 1,000 Unit Tablet, 1000 UNIT PO DAILY, TAB 08/06/18 Metoprolol Succinate* (Toprol XL*) 25 Mg Tab.sr.24h, 25 MG PO DAILY, #30 TAB 08/06/18 Insulin Lispro (Humalog Kwikpen U-100) 100 Unit/1 Ml Insuln.pen, 15 UNIT SQ AC A, EA 08/06/18 Insulin Glargine* (Lantus*) 100 Unit/Ml Soln, 45 UNIT SC QAM, #1 VIAL 08/06/18 Gemfibrozil* (Gemfibrozil*) 600 Mg Tablet, 600 MG PO BID, TAB 08/06/18 Medications Current Medications IV Flush (NS 3 ml) 3 ml PER PROTOCOL IV ; Start 08/29/18 at 02:30 Ondansetron HCl (Zofran Inj) 4 mg Q6H PRN IV NAUSEA/VOMITING; Start 08/29/18 at 02:30 Acetaminophen (Tylenol Tab) 650 mg Q6H PRN PO .PAIN 1-3 OR TEMP; Start 08/29/18 at 02:30 Acetaminophen/ Hydrocodone Bitart ([place] (5/325)) 1 tab Q6H PRN PO .MOD PAIN 4- 6; Start 08/29/18 at 02:30 Morphine Sulfate (morphine) 2 mg Q4H PRN IV .SEVERE PAIN 7-10; Start 08/29/18 at 02:30 Docusate Sodium (Colace) 100 mg Q12H PRN PO .CONSTIPATION; Start 08/29/18 at 02:30 Magnesium Hydroxide (Milk Of Mag) 30 ml DAILY PRN PO .CONSTIPATION; Start 08/29/18 at 02:30 Heparin Sodium (Porcine) (Heparin (5000 Units/1ml)) 5,000 unit Q12 SC Last administered on 08/29/18at 09:07; Admin Dose 5,000 UNIT; Start 08/29/18 at 09:00 Lorazepam (Ativan) 0.5 mg Q6H PRN IV ANXIETY; Start 08/29/18 at 02:30 Albuterol/ Ipratropium (Duoneb) 3 ml Q4H RESP THERAPY PRN HHN SHORTNESS OF BREATH; Start 08/29/18 at 02:30 Hydralazine HCl (Apresoline) 10 mg Q6H PRN IV ELEVATED BLOOD PRESSURE; Start 08/29/18 at 02:30 Nitroglycerin (Nitroglycerin (Sl Tab) 0.4 Mg) 1 tab Q5M PRN SL ANGINA; Start 08/29/18 at 02:30 Aspirin (Ecotrin) 325 mg DAILY PO Last administered on 08/29/18at 08:52; Admin Dose 325 MG; Start 08/29/18 at 09:00 Diagnostic Test (Pha) (Accu-Chek) 1 ea 02 XX ; Start 08/30/18 at 02:00 Insulin Aspart (Novolog Insulin Pen) NOVOLOG *MILD* ALGORI... Q4 SC ; Start at 05:00 Atorvastatin Calcium (Lipitor) 40 mg QHS PO ; Start 08/29/18 at 21:00 Cholecalciferol (Vitamin D) 1,000 unit DAILY PO Last administered on 08/29/18at 08:52; Admin Dose 1,000 UNIT; Start 08/29/18 at 09:00 Furosemide (Lasix) 20 mg DAILY PO Last administered on 08/29/18at 08:52; Admin Dose 20 MG; Start 08/29/18 at 09:00 Gemfibrozil (Lopid) 600 mg BID PO Last administered on 08/29/18at 08:52; Admin Dose 600 MG; Start 08/29/18 at 09:00 Insulin Glargine (Lantus) 45 units QAM SC Last administered on 08/29/18at 09:23; Admin Dose 45 UNITS; Start 08/29/18 at 09:00 Metoprolol Succinate (Toprol Xl) 25 mg DAILY PO Last administered on 08/29/18at 08:51; Admin Dose 25 MG; Start 08/29/18 at 09:00 Miscellaneous Information 15 unit AC A SQ ; Start 08/29/18 at 02:30; Status UNV Allergies: Coded Allergies: No Known Allergies (Verified Allergy, Mild, 08/29/18) Past Surgical History Past Surgical Hx: angioplasty, coronary bypass surgery, other (Shoulder surgery) Social History Alcohol Use: occasionally Smoking Status: Former smoker Drug Use: none Exam/Review of Systems Vital Signs Vitals Vital Signs Date Temp Pulse Resp B/P (MAP) Pulse Ox O2 O2 Flow FiO2 Time Delivery Rate 08/29/18 98.3 89 18 118/77 97 11:46 (91) 08/29/18 Room Air 05:30 Exam Constitutional: alert, oriented (No apparent distress) Head: normocephalic Respiratory: other (Coarse breath sounds bilaterally, no wheezing) Cardiovascular: regular rate and rhythm, other (S1-S2 heard) Gastrointestinal: soft, non-tender, bowel sounds Musculoskeletal: other (Pain with palpation of sternal incision site) Extremities: other (No edema) Labs Result Diagram: 08/28/18 2312 08/28/18 2312 Results 24hrs Laboratory Tests Test 08/28/18 23:12 08/29/18 01:43 08/29/18 03:51 08/29/18 05:54 White Blood Count 15.9 #H Red Blood Count 4.69 L Hemoglobin 13.3 L Hematocrit 39.5 L Mean Corpuscular Volume 84.2 Mean Corpuscular 28.4 L Hemoglobin Mean Corpuscular 33.7 Hemoglobin Concent Red Cell Distribution 12.3 Width Platelet Count 366 Mean Platelet Volume 9.7 Immature Granulocytes % 0.400 Neutrophils % 68.7 Lymphocytes % 22.0 Monocytes % 8.0 Eosinophils % 0.6 Basophils % 0.3 Nucleated Red Blood 0.0 Cells % Immature Granulocytes # 0.060 H Neutrophils # 11.0 H Lymphocytes # 3.5 H Monocytes # 1.3 H Eosinophils # 0.1 Basophils # 0.0 Nucleated Red Blood 0.0 Cells # Sodium Level 138 Potassium Level 4.4 Chloride Level 101 Carbon Dioxide Level 25 Anion Gap 12 Blood Urea Nitrogen 14 Creatinine 0.85 Est Glomerular Filtrat > 60 Rate mL/min Glucose Level 159 Calcium Level 9.9 Troponin I 0.041 0.037 Free Thyroxine 1.22 Bedside Glucose 121 137 Creatine Kinase 30 Creatine Kinase Index 0.7 Creatinine Kinase MB < 0.22 (Mass) Test 08/29/18 08:07 08/29/18 08:55 Bedside Glucose 115 Creatine Kinase 30 Creatine Kinase Index 0.7 Creatinine Kinase MB < 0.22 (Mass) Troponin I 0.035 Imaging Imaging ECG with sinus rhythm 89 bpm, QRS 82 ms, nonspecific ST abnormalities Medications Medications Current Medications IV Flush (NS 3 ml) 3 ml PER PROTOCOL IV ; Start 08/29/18 at 02:30 Ondansetron HCl (Zofran Inj) 4 mg Q6H PRN IV NAUSEA/VOMITING; Start 08/29/18 at 02:30 Acetaminophen (Tylenol Tab) 650 mg Q6H PRN PO .PAIN 1-3 OR TEMP; Start 08/29/18 at 02:30 Acetaminophen/ Hydrocodone Bitart ([place] (5/325)) 1 tab Q6H PRN PO .MOD PAIN 4- 6; Start 08/29/18 at 02:30 Morphine Sulfate (morphine) 2 mg Q4H PRN IV .SEVERE PAIN 7-10; Start 08/29/18 at 02:30 Docusate Sodium (Colace) 100 mg Q12H PRN PO .CONSTIPATION; Start 08/29/18 at 02:30 Magnesium Hydroxide (Milk Of Mag) 30 ml DAILY PRN PO .CONSTIPATION; Start 08/29/18 at 02:30 Heparin Sodium (Porcine) (Heparin (5000 Units/1ml)) 5,000 unit Q12 SC Last administered on 08/29/18at 09:07; Admin Dose 5,000 UNIT; Start 08/29/18 at 09:00 Lorazepam (Ativan) 0.5 mg Q6H PRN IV ANXIETY; Start 08/29/18 at 02:30 Albuterol/ Ipratropium (Duoneb) 3 ml Q4H RESP THERAPY PRN HHN SHORTNESS OF BREATH; Start 08/29/18 at 02:30 Hydralazine HCl (Apresoline) 10 mg Q6H PRN IV ELEVATED BLOOD PRESSURE; Start 08/29/18 at 02:30 Nitroglycerin (Nitroglycerin (Sl Tab) 0.4 Mg) 1 tab Q5M PRN SL ANGINA; Start 08/29/18 at 02:30 Aspirin (Ecotrin) 325 mg DAILY PO Last administered on 08/29/18at 08:52; Admin Dose 325 MG; Start 08/29/18 at 09:00 Diagnostic Test (Pha) (Accu-Chek) 1 ea 02 XX ; Start 08/30/18 at 02:00 Insulin Aspart (Novolog Insulin Pen) NOVOLOG *MILD* ALGORI... Q4 SC ; Start 08/29/18 at 05:00 Atorvastatin Calcium (Lipitor) 40 mg QHS PO ; Start 08/29/18 at 21:00 Cholecalciferol (Vitamin D) 1,000 unit DAILY PO Last administered on 08/29/18at 08:52; Admin Dose 1,000 UNIT; Start 08/29/18 at 09:00 Furosemide (Lasix) 20 mg DAILY PO Last administered on 08/29/18at 08:52; Admin Dose 20 MG; Start 08/29/18 at 09:00 Gemfibrozil (Lopid) 600 mg BID PO Last administered on 08/29/18at 08:52; Admin Dose 600 MG; Start 08/29/18 at 09:00 Insulin Glargine (Lantus) 45 units QAM SC Last administered on 08/29/18at 09:23; Admin Dose 45 UNITS; Start 08/29/18 at 09:00 Metoprolol Succinate (Toprol Xl) 25 mg DAILY PO Last administered on 08/29/18at 08:51; Admin Dose 25 MG; Start 08/29/18 at 09:00 Miscellaneous Information 15 unit AC A SQ ; Start 08/29/18 at 02:30; Status Bill Jordan DO Aug 29, 2018 12:44
--- NOTE | 2018-08-29 13:55 | QN ---
Documentation Comment 53-year-old male with a history of CAD/CABG x4 in June 2018, hypertension, dyslipidemia,dm2 admitted with chest pain gets worse with inspiration and touching the sternotomy [id number] Patient is being followed by cardiology and after discussion with CT surgery, plan is to do CT chest with IV contrast and 2D echocardiogram to rule out life- threatening situation such as pulmonary embolism/pericardial effusion. Troponins have been negative. We will follow-up consultants recommendations. Case discussed with Dr. Chery. KARLOS ROBERTSON V. MANAGER IMAGING Aug 29, 2018 13:55
--- NOTE | 2018-08-29 16:08 | PN ---
Date/Time of Note Date/Time of Note DATE: 08/29/18 TIME: 16:05 Assessment/Plan Lines/Catheters IV Catheter Type (from Nrs): Saline Lock Assessment/Plan Assessment/Plan 53 year old male s/p cabg 07/12. had some nausea and emesis and vague chest pain and numbness. WBC 15K. gallbladder MARICHUY showed sludge. cxr unremarkable. on exam he has mild sternal tenderness. sternum stable. incision ok. to have ct chest. rule out cholecystitis. may need HIDA. Exam/Review of Systems Vital Signs Vitals Vital Signs Date Temp Pulse Resp B/P (MAP) Pulse Ox O2 O2 Flow FiO2 Time Delivery Rate 08/29/18 98.2 88 18 115/74 97 15:20 (88) 08/29/18 Room Air 05:30 Results Result Diagram: 08/28/18 2312 08/28/18 2312 HUSSEIN BOUDREAUX MD Aug 29, 2018 16:08
--- NOTE | 2018-08-29 17:07 | RADRPT ---
Echocardiogram Report Patient Name: Jairo IRVING ID: [id number] : 1965 (53y 6m)Study Date: 08/29/2018 3:11:37 PM Gender: MAccession #: [id number] Tech: Wilmer [facility] Location: [address] Ref.Physician: BILL WRAY Height(Cm): BSA: Weight(Kg): Quality: AdequateOrder Physician: BILL WRAY Account #: Procedures: Echocardiographic Report: Transthoracic echocardiogram examination. Indications: R/o effusion. Measurements: 2D/M Mode Doppler Measurement Value Normal Range Measurement Value Normal Range LVIDd 2D 4.9 [ 4.2 - 5.8 ] cm RVSP 3.0 [ 10.0 - 36.0 ] mmHg LVIDs 2D 3.5 [ 2.5 - 4.0 ] cm IVSd 2D 1.5 [ 0.6 - 1.0 ] cm AoR Diam 2D 3.6 [ 2.6 - 3.4 ] cm LA Dimen 2D 3.9 [ 3.0 - 4.0 ] cm Findings: Left Ventricle: Normal left ventricular cavity size. Normal left ventricular systolic function. Sigmoid septum. The left ventricular ejection fraction is visually estimated at 55-60 %. Right Ventricle: Normal right ventricular size. Normal right ventricular systolic function. Left Atrium: The left atrium is normal in size and appearance. Right Atrium: The right atrium is normal in size and appearance. Aortic Valve: Aortic cusps appear mildly calcified. Pericardium: Normal pericardium with no significant pericardial effusion. IVC: Normal inferior vena cava appearance and respiratory collapse. Conclusions: Normal left ventricular systolic function. The left ventricular ejection fraction is visually estimated at 55-60 %. Normal pericardium with no significant pericardial effusion. Electronically Signed By: Bill Wray 2018-08-29 17:07:42 PDT
[2018-08-29] MEDS: morphine 2 MG INJ IV PRN (20:24)
[2018-08-29] MEDS ORDERED: ATORVASTATIN 40 MG TAB PO SCH (21:00)
[2018-08-30] VITALS: BP_SYST 122; BP_SYST 131; BP_DIAS 57; BP_DIAS 59; PULSE 73; PULSE 98; RESP 18
[2018-08-30] MEDS: morphine 2 MG INJ IV PRN ×2 (00:16→12:20)
[2018-08-30] MEDS ORDERED: ACCU-CHEK XX SCH (02:00)
[2018-08-30 04:00] VITALS: BP 103/60; PULSE 101; PULSE 99; RESP 18
[2018-08-30 07:20] VITALS: BP 124/74; PULSE 99; RESP 22
[2018-08-30 08:00] VITALS: PULSE 94
[2018-08-30] MEDS: INSULIN ASPART [NOVOLOG] 3 ML PEN SC SCH ×2 (08:00→12:00)
[2018-08-30] MEDS: CHOLECALCIFEROL 1,000 UNIT TAB PO SCH (08:54)
[2018-08-30] MEDS: FUROSEMIDE 20 MG TAB PO SCH (08:54)
[2018-08-30] MEDS: GEMFIBROZIL 600 MG TAB PO SCH (08:55)
[2018-08-30] MEDS: METOPROLOL (XL) 25 MG TAB PO SCH (08:55)
[2018-08-30] MEDS ORDERED: ASPIRIN (EC) 81 MG TAB PO SCH (09:00)
[2018-08-30] MEDS: INSULIN GLARGINE [LANTus] (100 UNITS/ML) SYG SC SCH (09:00)
[2018-08-30] MEDS: HEPARIN 5,000 UNIT/1 ML VIAL SC SCH (09:01)
[2018-08-30] MEDS ORDERED: SOD CHLORIDE 0.9% 100 ML ONE (09:40)
[2018-08-30] MEDS ORDERED: IOHEXOL 100 ML ONE (09:40)
[2018-08-30 11:16] VITALS: BP 112/75; PULSE 89; RESP 22
[2018-08-30 12:00] VITALS: PULSE 90
--- NOTE | 2018-08-30 12:12 | PDOCDIS ---
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
[2018-08-30] MEDS ORDERED: ASPI-1044 PO (12:15)
[2018-08-30] MEDS ORDERED: IBUP-1982 PO (12:22)
[2018-08-30] MEDS ORDERED: AZIT500T5 PO (13:08)
--- NOTE | 2018-08-30 13:29 | DS ---
Date/Time of Note Date/Time of Note DATE: 08/30/18 TIME: 13:20 Discharge Summary Admission/Discharge Info Admit Date/Time Aug 29, 2018 at 00:45 Discharge Date/Time Discharge Diagnosis Chest wall pain, likely pleuritic chest pain in light of mild bronchitis Mild bronchitis Severe coronary artery disease status post CABG x4 Hypertension Dyslipidemia Diabetes Consults ,cards ,CT surgery Procedures 08/30/2018: CTA chest and pulmonary angiogram IMPRESSION: 1. No evidence of pulmonary embolism. 2. Status post CABG with stable sternotomy changes and slight improvement of the anterior mediastinal fat stranding when compared to 08/06/2018 CT. 3. Marked coronary artery calcifications. 4. Near complete resolution of previously seen small bilateral pleural effusions as well as trace pericardial effusion. 5. Evidence of mild bronchitis. 6. Mildly prominent subcentimeter mediastinal lymph nodes, unchanged and likely reactive. RPTAT: QQ carlos a Villanueva Physician Date Time Electronically viewed and signed by carlos a Villanueva Physician on 08/30/2018 10:34 08/28/2018: Chest x-ray IMPRESSION: Status post median sternotomy. No evidence of acute cardiopulmonary process. 09/09/2018: 2D echocardiogram Findings: Left Ventricle: Normal left ventricular cavity size. Normal left ventricular systolic function. Sigmoid septum. The left ventricular ejection fraction is visually estimated at 55-60 %. Right Ventricle: Normal right ventricular size. Normal right ventricular systolic function. Left Atrium: The left atrium is normal in size and appearance. Right Atrium: The right atrium is normal in size and appearance. Aortic Valve: Aortic cusps appear mildly calcified. Pericardium: Normal pericardium with no significant pericardial effusion. IVC: Normal inferior vena cava appearance and respiratory collapse. Conclusions: Normal left ventricular systolic function. The left ventricular ejection fraction is visually estimated at 55-60 %. Normal pericardium with no significant pericardial effusion. Electronically Signed By: Bill Wray 2018-08-29 17:07:42 PDT Hospital Course 53-year-old male with a history of CAD/CABG x4 in June 2018, hypertension, dyslipidemia,dm2 admitted with chest pain gets worse with inspiration and touching the sternotomy [id number].. Patient was seen by fruit rancher and cardiothoracic surgeon who initially operated on him. There was no evidence of wound infection. Patient CT coronary angiogram was unremarkable although there was some evidence of bronchitis this could be contributing to pleuritic chest wall pain. She also had mild leukocytosis. Echocardiogram with no evidence of pericardial effusion. At this time, no further inpatient cardiac work-up indicated and patient is stable from a cardiac standpoint to be discharged. Give very low-dose of NSAIDs for only 3 days to help with inflammation with underlying bronchitis and azithromycin course. Approximately 60-minute was spent on coordinating the discharge on this patient. Patient was seen in collaboration with Dr. Chery. Home Meds Active Scripts Azithromycin* (Azithromycin*) 500 Mg Tablet, 500 MG PO DAILY for 5 Days, #5 TAB Prov:KARLOS ROBERTSON NP 08/30/18 Ibuprofen* (Ibuprofen*) 200 Mg Capsule, 200 MG PO Q6 for pain for 3 Days, #12 CAP Prov:KARLOS ROBERTSON NP 08/30/18 Aspirin Delayed Release (Aspirin Delayed Release) 81 Mg Tablet.dr, 81 MG PO DAILY, #30 TAB Prov:KARLOS ROBERTSON NP 08/30/18 Atorvastatin* (Atorvastatin*) 40 Mg Tablet, 40 MG PO QHS, #30 TAB Prov:RONA STALLWORTH NP 08/07/18 Furosemide* (Lasix*) 20 Mg Tablet, 20 MG PO DAILY for 30 Days, TAB Take 40 mg daily for the next 3 days. Prov:RONA STALLWORTH NP 08/07/18 Metformin Hcl* (Metformin Hcl*) 1,000 Mg Tablet, 1000 MG PO WITH BREAKFAST DINNE, #60 TAB Start taking only from 07/30/2018. Prov:RONA STALLWORTH NP 08/07/18 Reported Medications Cholecalciferol* (Vitamin D3*) 1,000 Unit Tablet, 1000 UNIT PO DAILY, TAB 08/06/18 Metoprolol Succinate* (Toprol XL*) 25 Mg Tab.sr.24h, 25 MG PO DAILY, #30 TAB 08/06/18 Insulin Lispro (Humalog Kwikpen U-100) 100 Unit/1 Ml Insuln.pen, 15 UNIT SQ AC A, EA 08/06/18 Insulin Glargine* (Lantus*) 100 Unit/Ml Soln, 45 UNIT SC QAM, #1 VIAL 08/06/18 Gemfibrozil* (Gemfibrozil*) 600 Mg Tablet, 600 MG PO BID, TAB 08/06/18 Follow-up Plan Follow up with outpatient fruit rancher in1 week follow up with primary care doctor in 1 week Primary Care Provider Not On Staff Doctor Pending Labs Laboratory Tests Test 08/29/18 16:52 08/29/18 17:27 08/29/18 20:33 08/29/18 23:16 Creatine 31 Kinase IU/L (23-200) Creatine Kinase 0.7 Index Creatinine < 0.22 Kinase MB ng/ml (0.0-2.4) (Mass) Troponin I 0.021 ng/ml (0.000-0. 120) Bedside 100 96 161 Glucose mg/dL (70-220) mg/dL (70-220) mg/dL (70-220) Test 08/30/18 05:14 08/30/18 08:35 08/30/18 12:15 White Blood 11.5 Count 10^3/ul (4.8-10 .8) Red Blood 4.57 Count 10^6/ul (4.70-6 .10) Hemoglobin 13.0 g/dl (14.0-18.0 ) Hematocrit 38.6 % (42.0-52.0) Mean 84.5 Corpuscular fl (82.0-101.0) Volume Mean 28.4 Corpuscular pg (29.0-33.0) Hemoglobin Mean 33.7 Corpuscular g/dl (32.0-37.0 Hemoglobin Conc ) ent Red Cell 12.2 Distribution % (11.5-14.5) Width Platelet Count 336 10^3/UL (140-41 5) Mean Platelet 10.0 Volume fl (7.4-10.4) Immature 0.400 Granulocytes % % (0.001-0.429) Neutrophils % 56.0 % (39.0-77.0) Lymphocytes % 33.1 % (15.0-51.0) Monocytes % 9.3 % (0.0-11.0) Eosinophils % 0.9 % (0.0-7.0) Basophils % 0.3 % (0.0-2.0) Nucleated Red 0.0 Blood Cells % /100WBC (0.0-0. 0) Immature 0.050 Granulocytes # 10^3/ul (0.0-0. 031) Neutrophils # 6.4 10^3/ul (1.6-7. 5) Lymphocytes # 3.8 10^3/ul (0.8-2. 9) Monocytes # 1.1 10^3/ul (0.3-0. 9) Eosinophils # 0.1 10^3/ul (0.0-0. 5) Basophils # 0.0 10^3/ul (0.0-0. 1) Nucleated Red 0.0 Blood Cells # 10^3/ul (0.0-0. 0) Sodium Level 139 mmol/L (135-144 ) Potassium 3.8 Level mmol/L (3.5-5.1 ) Chloride Level 100 mmol/L (97-110) Carbon Dioxide 27 Level mmol/L (21-31) Anion Gap 12 (5-13) Blood Urea 19 mg/dl (7-20) Nitrogen Creatinine 0.85 mg/dl (0.61-1.2 4) Est Glomerular > 60 Filtrat mL/min (>60) Rate mL/min Glucose Level 146 mg/dl (70-220) Hemoglobin A1c 7.3 % (0-5.9) Calcium Level 9.4 mg/dl (8.4-10.2 ) Phosphorus 5.7 Level mg/dl (2.5-4.9) Magnesium 2.0 Level mg/dl (1.7-2.5) Triglycerides 255 Level mg/dl (0-149) Cholesterol 167 Level mg/dl (100-200) LDL 78 mg/dl Cholesterol, Calculated HDL 38 Cholesterol mg/dl (28-71) Cholesterol/HDL 4.3 RATIO Ratio Thyroid 0.661 Stimulating MIU/L (0.465-4. Hormone (TSH) 680) Bedside 148 149 Glucose mg/dL (70-220) mg/dL (70-220) KARLOS ROBERTSON NP Aug 30, 2018 13:29
--- NOTE | 2018-08-30 13:30 | CONS ---
Assessment/Plan Assessment/Plan Hospital Course (Demo Recall) Chest wall pain-possible bronchitis Leukocytosis Severe coronary artery disease status post CABG x4, [place] to LAD, SVG to PDA, SVG to diagonal artery sequenced to obtuse marginal artery June 2018 Preserved ejection fraction Hypertension Dyslipidemia Possible diabetes CT chest performed with no evidence of sternal infection, no pulmonary emboli, there is evidence of bronchitis. Echocardiogram with no pericardial effusion Symptoms appear secondary to possible bronchitis and/or musculoskeletal. Discussed with primary team, would consider trial of antibiotics, would consider a short trial of NSAIDs. Otherwise no further inpatient cardiac work-up needed at the current time. Consultation Date/Type/Reason Admit Date/Time Aug 29, 2018 at 00:45 Initial Consult Date Type of Consult Cardiology Date/Time of Note DATE: 08/30/18 TIME: 13:28 24 HR Interval Summary Free Text/Dictation Feels slightly better. Still with sharp chest pain with deep inspiration. No shortness of breath. Positive cough Exam/Review of Systems Vital Signs Vitals Vital Signs Date Temp Pulse Resp B/P (MAP) Pulse Ox O2 O2 Flow FiO2 Time Delivery Rate 08/30/18 98.3 89 22 112/75 96 Room Air 11:16 (87) Intake and Output 08/29/18 08/29/18 08/30/18 1515:00 23:00 07:00 IntakeIntake Total 350 ml BalanceBalance 350 ml Exam Constitutional: alert, oriented (No apparent distress) Head: normocephalic Respiratory: other (Coarse breath sounds bilaterally, no wheezing) Cardiovascular: regular rate and rhythm (S1-S2 heard) Gastrointestinal: soft, non-tender, bowel sounds Extremities: other (No edema) Labs Result Diagram: 08/30/18 0514 08/30/18 0514 Results 24hrs Laboratory Tests Test 08/29/18 16:52 08/29/18 17:27 08/29/18 20:33 08/29/18 23:16 Creatine Kinase 31 Creatine Kinase Index 0.7 Creatinine Kinase MB < 0.22 (Mass) Troponin I 0.021 Bedside Glucose 100 96 161 Test 08/30/18 05:14 08/30/18 08:35 08/30/18 12:15 White Blood Count 11.5 #H Red Blood Count 4.57 L Hemoglobin 13.0 L Hematocrit 38.6 L Mean Corpuscular Volume 84.5 Mean Corpuscular 28.4 L Hemoglobin Mean Corpuscular 33.7 Hemoglobin Concent Red Cell Distribution 12.2 Width Platelet Count 336 Mean Platelet Volume 10.0 Immature Granulocytes % 0.400 Neutrophils % 56.0 Lymphocytes % 33.1 Monocytes % 9.3 Eosinophils % 0.9 Basophils % 0.3 Nucleated Red Blood 0.0 Cells % Immature Granulocytes # 0.050 H Neutrophils # 6.4 Lymphocytes # 3.8 H Monocytes # 1.1 H Eosinophils # 0.1 Basophils # 0.0 Nucleated Red Blood 0.0 Cells # Sodium Level 139 Potassium Level 3.8 Chloride Level 100 Carbon Dioxide Level 27 Anion Gap 12 Blood Urea Nitrogen 19 Creatinine 0.85 Est Glomerular Filtrat > 60 Rate mL/min Glucose Level 146 Hemoglobin A1c 7.3 H Calcium Level 9.4 Phosphorus Level 5.7 H Magnesium Level 2.0 Triglycerides Level 255 H Cholesterol Level 167 LDL Cholesterol, 78 Calculated HDL Cholesterol 38 Cholesterol/HDL Ratio 4.3 Thyroid Stimulating 0.661 Hormone (TSH) Bedside Glucose 148 149 Medications Medications Current Medications IV Flush (NS 3 ml) 3 ml PER PROTOCOL IV ; Start 08/29/18 at 02:30 Ondansetron HCl (Zofran Inj) 4 mg Q6H PRN IV NAUSEA/VOMITING; Start 08/29/18 at 02:30 Acetaminophen (Tylenol Tab) 650 mg Q6H PRN PO .PAIN 1-3 OR TEMP; Start 08/29/18 at 02:30 Acetaminophen/ Hydrocodone Bitart (Aroda (5/325)) 1 tab Q6H PRN PO .MOD PAIN 4- 6 Last administered on 08/30/18at 09:12; Admin Dose 1 TAB; Start 08/29/18 at 02:30 Morphine Sulfate (morphine) 2 mg Q4H PRN IV .SEVERE PAIN 7-10 Last administered on 08/30/18at 12:20; Admin Dose 2 MG; Start 08/29/18 at 02:30 Docusate Sodium (Colace) 100 mg Q12H PRN PO .CONSTIPATION; Start 08/29/18 at 02:30 Magnesium Hydroxide (Milk Of Mag) 30 ml DAILY PRN PO .CONSTIPATION; Start 08/29/18 at 02:30 Heparin Sodium (Porcine) (Heparin (5000 Units/1ml)) 5,000 unit Q12 SC Last ad ministered on 08/30/18at 09:01; Admin Dose 5,000 UNIT; Start 08/29/18 at 09:00 Lorazepam (Ativan) 0.5 mg Q6H PRN IV ANXIETY; Start 08/29/18 at 02:30 Albuterol/ Ipratropium (Duoneb) 3 ml Q4H RESP THERAPY PRN HHN SHORTNESS OF BREATH; Start 08/29/18 at 02:30 Hydralazine HCl (Apresoline) 10 mg Q6H PRN IV ELEVATED BLOOD PRESSURE; Start 08/29/18 at 02:30 Nitroglycerin (Nitroglycerin (Sl Tab) 0.4 Mg) 1 tab Q5M PRN SL ANGINA; Start 08/29/18 at 02:30 Diagnostic Test (Pha) (Accu-Chek) 1 ea 02 XX ; Start 08/30/18 at 02:00 Atorvastatin Calcium (Lipitor) 40 mg QHS PO Last administered on 08/29/18at 20:24; Admin Dose 40 MG; Start 08/29/18 at 21:00 Cholecalciferol (Vitamin D) 1,000 unit DAILY PO Last administered on 08/30/18at 08:54; Admin Dose 1,000 UNIT; Start 08/29/18 at 09:00 Furosemide (Lasix) 20 mg DAILY PO Last administered on 08/30/18at 08:54; Admin Dose 20 MG; Start 08/29/18 at 09:00 Gemfibrozil (Lopid) 600 mg BID PO Last administered on 08/30/18at 08:55; Admin Dose 600 MG; Start 08/29/18 at 09:00 Insulin Glargine (Lantus) 45 units QAM SC Last administered on 08/30/18at 09:00; Admin Dose 45 UNITS; Start 08/29/18 at 09:00 Metoprolol Succinate (Toprol Xl) 25 mg DAILY PO Last administered on 08/30/18at 08:55; Admin Dose 25 MG; Start 08/29/18 at 09:00 Aspirin (Halfprin) 81 mg DAILY PO Last administered on 08/30/18 08:55; Admin Dose 81 MG; Start 08/30/18 at 09:00 Insulin Aspart (Novolog Insulin Pen) NOVOLOG *MILD* ALGORITHM WITH MEALS BEDTIME SC ; Start 08/30/18 at 08:00 Bill Wray 7, 2019 13:30
== END 2018-08-30 16:16 | disposition home or self-care (01) | DRG 313 ==
LOC: E/R 21:57 → 6WM 08-29 00:45
PROVIDERS: ADMIT Hospitalist; ATTEND Hospitalist
DX: R07.89 Other chest pain (principal); Z95.1 Presence of aortocoronary bypass graft; I10 Essential (primary) hypertension; E78.5 Hyperlipidemia, unspecified; Z87.891 Personal history of nicotine dependence; N40.0 Benign prostatic hyperplasia without lower urinary tract symptoms; R11.2 Nausea with vomiting, unspecified; R20.0 Anesthesia of skin; J40 Bronchitis, not specified as acute or chronic; E11.9 Type 2 diabetes mellitus without complications
CPT/HCPCS: 36415; 71045; 71275; 76705; 80048; 80061; 82550; 82553; 82962; 83036; 83735; 84100; 84439; 84443; 84484; 85025; 93005; 93306; J1644; J1815; J2270; J2405; Q9967